=== PATIENT | male | born 1950 | race Caucasian/White ===

== ENCOUNTER 2020-03-21 13:22 | Outpatient (CLI) | payer MEDICARE, SELFPAY ==
--- NOTE | ~2020-03-21 | CT_ITS ---
EXAMINATION: CT abdomen pelvis wo/w con DATE: 03/21/2020 14:37 INDICATION: Hematuria. TECHNIQUE: Computed tomography (CT) of the abdomen and pelvis was performed without and with intraven ous contrast using a total of 130 mL Omnipaque-350 intravenous contrast with a double-bolus technique for simultaneous opacification of the renal parenchyma and renal collecting system. Automated exposu re control and iterative reconstruction technique were employed. The dose-length product was 1221.13 mGy-cm. COMPARISON: CT abdomen and pelvis 11/19/2018 FINDINGS: The visualized portions of the lung bases demonstrate mild atelectasis. No pleural effusion. The hear t size is normal. No pericardial effusion. There are cysts in the liver measuring up to 3.0 cm. The g allbladder is normal. There are low-attenuation masses in the spleen measuring up to 5 mm, likely cys ts or granulomatous disease. The pancreas and adrenal glands are normal. There is a 5 mm cyst in righ t kidney. There is a 4 mm stone in left kidney. The ureters are well opacified and are normal. The bl adder is not well distended. There is a left inguinal hernia containing fat. Prominent fat in right i nguinal canal may be a hernia. There is diverticulosis of the colon without evidence of diverticuliti s. There are no dilated loops of bowel. The appendix is not visualized. There is a small sliding hiat al hernia. There are no pathologically enlarged lymph nodes. Is a small umbilical hernia containing f at. There is a left-sided spigelian hernia containing fat. There is no free intraperitoneal fluid. Th ere is mild subcutaneous scarring in anterior abdominal wall. There is mild lumbar spondylosis. IMPRESSION: 1. 4 mm nonobstructing left kidney stone. Reviewed, dictated and finalized at location A.
[2020-03-21 14:15] LABS: Estimated Glomerular Filt Rate > 60
== END 2020-03-21 13:23 | disposition home or self-care (01) ==
PROVIDERS: PCP Family Medicine; Visit Provider Internal Medicine Medical Oncology
DX: N20.0 Calculus of kidney (principal)
CPT/HCPCS: 36415; 74178; Q9967

== ENCOUNTER 2020-11-28 20:10 | Emergency (ER) | payer MEDICARE, SELFPAY ==
--- NOTE | ~2020-11-28 | CT_ITS ---
EXAMINATION: CT abdomen pelvis w con DATE: 11/28/2020 22:25 INDICATION: Left lower quadrant abdominal pain. TECHNIQUE: Computed tomography (CT) of the abdomen and pelvis was performed with 100 mL Omnipaque 350 intravenous contrast. Automated exposure control and iterative reconstruction technique were employe d. The dose-length product was 461.55 mGy-cm. COMPARISON: CT abdomen and pelvis 03/21/2020, 12/23/11 FINDINGS: The visualized portions of the lung bases demonstrate mild atelectasis. No pleural effusion . The heart size is normal. No pericardial effusion. There is a small sliding hiatal hernia. There ar e cysts in the liver measuring up to 2.8 cm. The gallbladder and spleen are normal. There is an 8 mm hyperenhancing mass in the body of the pancreas without change from 12/23/11, likely a splenule. The a drenal glands are normal. There are cysts in right kidney measuring up to 5 mm. There is mild left hy dronephrosis and hydroureter. There is a 4 mm stone in distal left ureter. There are no dilated loops of bowel. The appendix is not visualized. There is a left inguinal hernia containing fat. There are no pathologically enlarged lymph nodes. There is no free intraperitoneal fluid. There is mild thoraco lumbar spondylosis. IMPRESSION: 1. 4 mm stone in distal left ureter with mild left hydronephrosis and hydroureter. Reviewed, dictated and finalized at location A. OGAME DESIGNER IMPRESSION: 1. 4 mm stone in distal left ureter with mild left hydronephrosis and hydroure ter.
[2020-11-28 20:10] VITALS: BP 146/62; PULSE 68; RESP 15; TEMP 36.6; O2SAT 97
--- NOTE | 2020-11-28 20:13 | ECG_ITS ---
Measurements Intervals Victor Rate: 67 P: 73 VA: 148 QRS: -8 QRSD: 90 T: 48 QT: 389 QTc: 413 Interpretive Statements SINUS RHYTHM NORMAL ECG Electronically Signed On 11-29-2020 6:45:58 PASSENGER FLAGMAN by Ray Pearl D.O.
[2020-11-28 20:45] LABS: Basophils Percent Auto 0.2 % (0.2-1.2); Eosinophils Absolute Auto 0.1 K/mm3 (0-0.3); Eosinophils Percent Auto 0.8 % (0-4.4); Hematocrit 44.6 % (42.0-52.0); Hemoglobin 15.4 g/dL (14.0-18.0); Immature Granulocyte Absolute 0.06 K/mm3 (0.00-0.031); Immature Granulocyte Percent A 0.5 % (0-0.5); Lymphocytes Absolute Auto 3.19 K/mm3 (0.9-3.2); Lymphocytes Percent Auto 26.1 % (18.3-44.2); Mean Corpuscular HGB Conc 34.5 g/dl (32-36); Mean Corpuscular Hemoglobin 34.5 pg (26-34); Mean Corpuscular Volume 99.8 fl (80-100); Mean Platelet Volume 10.2 fl (7.4-10.4); Monocytes Absolute Auto 1.3 K/mm3 (0.1-0.6); Monocytes Percent Auto 10.3 % (2.6-8.5); Neutrophils Absolute Auto 7.6 K/mm3 (1.3-6.7); Neutrophils Percent Auto 62.1 % (45.5-73.1); Platelet Count Result 169 k/mm3 (150-375); Red Blood Count 4.47 M/mm3 (4.6-6.20); Red Cell Distribution Width 12.8 % (11.5-14.5); White Blood Count 12.2 K/mm3 (4.5-10.0)
[2020-11-28 20:58] LABS: Alanine Aminotransferase 20 U/L (4-50); Albumin Level 4.3 g/dL (3.5-5.1); Alkaline Phosphatase 69 U/L (38-126); Anion Gap 4 mmol/L (8-16); Aspartate Amino Transferase 28 U/L (17-59); Bilirubin,Total 0.6 mg/dL (0.2-1.3); Blood Urea Nitrogen 31 mg/dL (9-20); Calcium 9.7 mg/dL (8.4-10.2); Carbon Dioxide 36 mmol/L (22-30); Chloride 100 mmol/L (98-107); Estimated CRCL calculation 50 ml/min; Estimated Glomerular Filt Rate > 60; Glucose 129 mg/dL (75-110); Potassium 3.1 mmol/L (3.4-5.0); Sodium 140 mmol/L (137-145)
[2020-11-28 21:01] VITALS: BP 122/66; PULSE 71; RESP 11; O2SAT 92
--- NOTE | 2020-11-28 21:51 | ED.SYNCOPE ---
HPI - Syncope General Chief Complaint: Syncope Stated Complaint: weakness Time Seen by Provider: 11/28/20 20:18 Source: patient Mode of arrival: ambulatory Limitations: no limitations History of Present Illness HPI narrative: A 70-year-old male comes into the emergency department today with complaints of left lower quadrant pain radiating down into his groin. Patient denies that it goes all the way to his testicles. He states that this sort of feels like when he had a kidney stone in the past. He states that it is very strong ache with episodes where he feels very sharp. He notes that he even passed out earlier from the pain. He denies hitting his head or any head injuries. Patient has not taken any medications for this. Related Data Home Medications Medication Instructions Recorded Confirmed cholecalciferol (vitamin D3) 2,000 unit PO DAILY 08/11/19 11/08/20 [Vitamin D3] fuqdrcun-tbi-RA-lycopen-lutein 1 tablet PO DAILY 08/11/19 11/08/20 [Centrum Silver Men] prednisone 5 mg PO BID 08/11/19 11/08/20 leuprolide (3 month) 22.5 mg (3 22.5 mg SUB-Q [id number] 08/19/19 11/08/20 month) subcutaneous syringe loratadine 10 mg tablet 10 mg PO DAILY 08/19/19 11/08/20 abiraterone 500 mg tablet 1,000 mg PO DAILY 08/24/19 11/08/20 lactobacillus combination no.9 4 4,000 mmu cells PO DAILY 07/05/20 11/08/20 billion cell capsule Allergies Allergy/AdvReac Type Severity Reaction Status Date / Time No Known Allergies Allergy Verified 11/08/20 13:37 Review of Systems Review of Systems: Narrative: CONSTITUTIONAL: Denies fever, chills, or sweats. EYES: Denies visual changes, redness, or discharge. ENT: Denies rhinorrhea, congestion, sore throat, or otalgia. CARDIOVASCULAR: Denies chest pain, palpitations, or edema. RESPIRATORY: Denies cough or dyspnea. GASTROINTESTINAL: Denies abdominal pain, nausea, vomiting, or diarrhea. GENITOURINARY: Denies dysuria or hematuria. Endorses left flank and groin pain SKIN: Denies rash or itching. MUSCULOSKELETAL: Denies back pain, joint pain, or myalgia. NEUROLOGIC: Denies headache, numbness, dizziness, or weakness. PSYCHIATRIC: Denies anxiety or depression. [facility] Past Medical History Medical History Environmental allergies Essential (primary) hypertension GERD (gastroesophageal reflux disease) History of colon polyps Hyperlipidemia Prediabetes Prostate cancer prostatectomy 2011 Surgical History Surgical History History of appendectomy 1950s History of radical prostatectomy 2012 History of vasectomy Family History Family History Other Diabetes mellitus Family history of coronary artery disease Hypertension Malignant neoplasm of prostate Social History Social History Smoking status: Never smoker Second hand tobacco smoke exposure: No Alcohol intake: never Substance use: never Substance use type: does not use Gender identity (if verbalized by the patient): Male Exam Narrative: Exam Narrative: GENERAL: Well-appearing, well-nourished, and in no acute distress. HEAD: Normocephalic, atraumatic. EYES: PERRLA and EOMI. ENT: Nares clear, no rhinorrhea or epistaxis. Mucous membranes moist. NECK: Supple. No adenopathy or masses. No carotid bruits or JVD CHEST: Clear to auscultation. No respiratory distress. No wheezes rales or rhonchi HEART: Regular rate and rhythm. No murmur heard. Normal peripheral pulses. ABDOMEN: Soft, nontender, nondistended, normal active bowel sounds. Tenderness to palpation left lower quadrant EXTREMITIES: Normal range of motion. No edema. SKIN: Warm, dry, no rash. NEURO: No focal deficits. Alert and oriented x3. PSYCH: Normal mood and affect. Course Reevaluation(s) Reevaluation #1: Patient reevaluated and provided care
[2020-11-28 22:01] VITALS: BP 127/54; PULSE 77; RESP 14; O2SAT 91
[2020-11-28] MEDS: LACTATED RINGERS 1,000 ML 999 ML IV CONT (22:14)
[2020-11-28] MEDS: MORPHINE SULFATE (*CRX) 4 MG/ML INJ IV PUSH (22:15)
[2020-11-28 23:02] VITALS: BP 120/101; PULSE 91; RESP 21
[2020-11-28] MEDS: KETOROLAC 15 MG/ML VIAL (*BKC) IV PUSH (23:29)
[2020-11-28 23:34] LABS: Add Urine Microscopic? YES; Appearance Urine Clear (Clear); Bilirubin Urine Negative (Negative); Blood Urine 2+ (Negative); Color Urine Straw (Yellow); Glucose Urine UA Negative (Negative); Ketones Urine Negative (Negative); Leukocyte Esterase Ur Negative LEU/UL (Negative); Mucus Urine Rare /lpf; Nitrate Urine Negative (Negative); Protein Urine Negative (Negative); RBC Urine 21-50 /hpf (0-2); Specific Grav Ur 1.028 (1.001-1.035); Urobilinogen Urine Negative mg/dL (<2.0); WBC Urine 0-3 /hpf
== END 2020-11-28 23:50 | disposition home or self-care (01) ==
PROVIDERS: Emergency Medicine; Emergency Provider Emergency Medicine; PCP Family Medicine
DX: N20.1 Calculus of ureter (principal); I10 Essential (primary) hypertension; K21.9 Gastro-esophageal reflux disease without esophagitis; E78.5 Hyperlipidemia, unspecified
CPT/HCPCS: 36415; 74177; 80053; 81001; 85025; 93005; 96361; 96374; 96375; 99284; J1885; J2270; J7120; Q9967

== ENCOUNTER 2020-12-05 11:24 | Outpatient (CLI) | payer MEDICARE, SELFPAY ==
--- NOTE | ~2020-12-05 | XR_ITS ---
EXAMINATION: XR abdomen/kub 1V EXAM DATE: 12/05/2020 11:44 INDICATION: Left ureteral stone follow-up. TECHNIQUE: Frontal projection(s) of the abdomen for interpretation. Correlation is made to CT 11/28/19. FINDINGS: The distal left ureteral stone seen on CT has likely migrated to the UVJ, calcification has been indicated on the study. This measures about 5 mm. Moderate amount of ascending and transverse c olonic stool and gas. No small bowel obstruction. Moderate bony degenerative changes. IMPRESSION: 1. Left UVJ 5 mm stone, indicated. Reviewed, dictated and finalized at location A. IFYING PLANT OPERATOR
== END 2020-12-05 11:25 | disposition home or self-care (01) ==
LOC: ANHIMG 11:31
PROVIDERS: PCP Family Medicine; Visit Provider Urology
DX: N20.1 Calculus of ureter (principal)
CPT/HCPCS: 74018

== ENCOUNTER 2020-12-07 00:52 | Day surgery (SDC) | payer MEDICARE, SELFPAY ==
[2020-12-07] VITALS (7 sets, daily range): BP systolic 112–142; BP diastolic 43–68; PULSE 63–71; RESP 12–14; TEMP 36.3–37; O2SAT 95–100; BMI 25.4
--- NOTE | ~2020-12-07 | XR_ITS ---
EXAMINATION: XR abdomen/kub 1V EXAM DATE: 12/07/2020 13:16 INDICATION: Lithotripsy. TECHNIQUE: Frontal projection(s) of the abdomen for interpretation. Comparison is made to prior exami nation from 12/05/2020. FINDINGS: Left pelvic calcification suspected to be UVJ stone measuring about 5 mm reidentified, ind icated. Mild to moderate bony degenerative changes. Nonobstructive bowel gas pattern. IMPRESSION: Left pelvic calcification likely UVJ 5 mm stone identified. Reviewed, dictated and finalized at location A. L BUILDER
--- NOTE | ~2020-12-07 | XR_ITS ---
EXAMINATION: XR retrograde pyelo w/stent LT EXAM DATE: 12/07/2020 15:37 INDICATION: Left-sided retrograde pyelogram for obstructive nephropathy. TECHNIQUE: Fluoroscopy used during XR retrograde pyelo w/stent LT performed by Dr. Vj scott MD. The DAP for this procedure was 228 radcm2. FINDINGS: Left ureter was cannulated and injected. Mild left hydronephrosis. A double-J ureteral tia nt was placed. Correlate with procedure note. IMPRESSION: Fluoroscopy used during XR retrograde pyelo w/stent LT. Reviewed, dictated and finalized at location A. KEEPER
--- NOTE | 2020-12-07 13:47 | WPDHPUPDATE1 ---
History and Physical Update Update Date/Time: 12/07/20 13:47 History and Physical has been reviewed, including an updated exam of the patient. There are NO changes in the patient's condition. Risks, benefits, and alternatives have been discussed and questions answered. Patient agrees to proceed with procedure. Proceed with cystoscopy, left retrograde pyelogram, left ureteroscopy with stone extraction, possible holmium laser, stent placement
[2020-12-07] MEDS: LACTATED RINGERS 1,000 ML 30 ML IV CONT (13:56)
--- NOTE | 2020-12-07 14:39 | WPDANESEPPF ---
Anes - Initial Pre Proc Eval Procedure: Operation Date: 12/07/20 15:30 Proposed Procedures p Cystoscopy, Left Ureteroscopy, Left Retrograde Pyelogram, Left Stone Extraction, Possible Left Stent Placement, - Vj Morales MD s Possible Holmium Laser Procedure - Vj Morales MD Date/Time: 12/07/20 14:39 Surgeon: Vj Morales MD Pre Op Diagnosis: Left Ureteral Stones N20.1 Patient Data Age: 70 Gender: M Height: 5 ft 7.5 in Weight: 73.9 kg Last Vital Signs Temp 37.0 C 12/07/20 13:57 Pulse 69 12/07/20 13:57 BP 135/62 12/07/20 13:57 Pulse Ox 97 12/07/20 13:57 Allergies Allergy/AdvReac Type Severity Reaction Status Date / Time No Known Allergies Allergy Verified 12/07/20 09:42 Home Medications Medication Instructions Recorded Confirmed Type cholecalciferol (vitamin D3) 2,000 unit PO DAILY 08/11/19 12/07/20 History [Vitamin D3] rzjtlltl-ung-UG-lycopen-lutein 1 tablet PO DAILY 08/11/19 12/07/20 History [Centrum Silver Men] prednisone 5 mg PO BID 08/11/19 12/07/20 History leuprolide (3 month) 22.5 mg (3 22.5 mg SUB-Q [id number] 08/19/19 12/07/20 History month) subcutaneous syringe loratadine 10 mg tablet 10 mg PO DAILY 08/19/19 12/07/20 History abiraterone 500 mg tablet 1,000 mg PO QAM 08/24/19 12/07/20 History lactobacillus combination no.9 4 4,000 mmu cells PO QAM 07/05/20 12/07/20 History billion cell capsule famotidine 20 mg tablet 20 mg PO BID #180 tablet 11/08/20 12/07/20 Rx hydrocodone-acetaminophen 1 tablet PO Q6H PRN #20 tablet 11/28/20 12/07/20 Rx atorvastatin 40 mg PO QAM 12/07/20 12/07/20 History lisinopril-hydrochlorothiazide 1 tablet PO QAM 12/07/20 12/07/20 History Patient hx anesthesia problems: none Family hx anesthesia problems: none PMFSH Past Medical History Medical History Environmental allergies Essential (primary) hypertension GERD (gastroesophageal reflux disease) History of colon polyps Hyperlipidemia Prediabetes Prostate cancer prostatectomy 2011 Surgical History Surgical History History of appendectomy 1950s History of radical prostatectomy 2012 History of vasectomy Family History Family History Other Diabetes mellitus Family history of coronary artery disease Hypertension Malignant neoplasm of prostate Social History Social History Smoking status: Never smoker Second hand tobacco smoke exposure: No Alcohol intake: former Alcohol use details: SOCIAL IN DISTANCE PAST Substance use: never Substance use type: does not use Living arrangements: with family Additional living arrangements comments: & SON Gender identity (if verbalized by the patient): Male Spiritual care concerns: No Anes - Eval Final PreProcedure Day of Procedure 12/07/20 14:39 Patient weight: normal Heart: regular rate and rhythm Lungs: clear to auscultation Airway: Mallampati scale class II Neurological: alert and oriented Last oral intake: >/= 8 hours ASA classification: III Emergent: no Anesthetic plan: proceed Anesthesia type and monitoring: general LMA and standard monitoring Informed Consent: The patient's anesthetic plan and its attendant risks and benefits were discussed with the patient/family/POA. Questions were solicited and answers provided to the satisfaction of the patient/family/POA.
--- NOTE | 2020-12-07 15:33 | PM.PROC ---
Procedure Note - Detailed Date of procedure: 12/07/20 Pre-op diagnosis: Left Ureteral Stones N20.1 Post-op diagnosis: same Procedure performed: Cystoscopy, left retrograde pyelogram, left ureteroscopy with stone extraction, left ureteral stent placement, dilation of urethra with with male sounds to 24 Monegasque. Description of procedure: Patient is taken the operative suite correctly identified. Once anesthesia was obtained he was placed in dorsal lithotomy position and prepped and draped usual sterile fashion. Twenty-two Monegasque scope would not fit in the meatus. We thus dilated using male sounds up to 24 Monegasque. Twenty-two Monegasque scope was then inserted. There is no strictures noted. Prostate is absent. The bladder is inspected there is no tumors noted. Left ureteral orifice was cannulated with a guidewire. 8/10 dilator was used to dilate the orifice. Rigid ureteral scope was then inserted the stone was visualized. Using an escape basket we were able to retrieve the stone 1 piece and sent for analysis. Reinspection revealed no residual stones. Pyelogram sent performed to confirm placement of the stent. 4.8 Monegasque contour stent was then placed with the proximal end coiled in the renal pelvis and the distal in the bladder. Bladder was drained. 2% viscous lidocaine was inserted urethra patient is taken recovery room stable condition. He will be discharged home and follow up in about a week's time for stent removal. Anesthesia: GLMA Surgeon: Vj Morales MD Drains: Yes Packing: No Pathology: yes Complications: No immediate complications Condition: stable Disposition: PACU
[2020-12-07] MEDS: LIDOCAINE HCL 2% GEL UROJET 10 ML PKG MUCOUS MEM (15:35)
== END 2020-12-07 17:30 | disposition home or self-care (01) ==
PROVIDERS: PCP Family Medicine; Visit Provider Urology
PROC: (CPT 52352; principal; 2020-12-07 15:30)
DX: N13.2 Hydronephrosis with renal and ureteral calculous obstruction (principal); E78.5 Hyperlipidemia, unspecified; R73.03 Prediabetes; I10 Essential (primary) hypertension; K21.9 Gastro-esophageal reflux disease without esophagitis; Z85.46 Personal history of malignant neoplasm of prostate
CPT/HCPCS: 52332; 52352; 74018; 74420; 82365; 88300; A9270; C1769; C2617; J1100; J1170; J2250; J2405; J2704; J7120; Q9966

== ENCOUNTER 2021-04-18 02:27 | Day surgery (SDC) | payer MEDICARE, SELFPAY ==
[2021-04-16 15:43] VITALS: BMI 25.2
[2021-04-18] VITALS (9 sets, daily range): BP systolic 118–151; BP diastolic 55–74; PULSE 59–69; RESP 16–20; TEMP 36.2; O2SAT 94–99; BMI 25.8
--- NOTE | 2021-04-18 06:01 | WPDHPUPDATE1 ---
History and Physical Update Update Date/Time: 04/18/21 06:01 History and Physical has been reviewed, including an updated exam of the patient. There are NO changes in the patient's condition. Risks, benefits, and alternatives have been discussed and questions answered. Patient agrees to proceed with procedure.
[2021-04-18] MEDS: LACTATED RINGERS 1,000 ML 30 ML IV CONT (09:40)
--- NOTE | 2021-04-18 09:44 | WPDANESEPPF ---
Anes - Initial Pre Proc Eval Procedure: Operation Date: 04/18/21 11:00 Proposed Procedures p Cystoscopy, Urethral Dilatation - Alfie Hardy MD Date/Time: 04/18/21 09:44 Surgeon: Alfie Hardy MD Pre Op Diagnosis: bulbous urethral stricture Patient Data Age: 71 Gender: M Height: 1.7 m Weight: 74.8 kg Last Vital Signs Temp 36.2 C L 04/18/21 09:38 Pulse 64 04/18/21 09:38 Resp 18 04/18/21 09:38 BP 126/55 L 04/18/21 09:38 Pulse Ox 97 04/18/21 09:38 Allergies Allergy/AdvReac Type Severity Reaction Status Date / Time No Known Allergies Allergy Verified 04/18/21 09:26 Home Medications Medication Instructions Recorded Confirmed Type Centrum Silver Men 1 tablet PO DAILY 08/11/19 04/18/21 History cholecalciferol (vitamin D3) 2,000 unit PO DAILY 08/11/19 04/18/21 History [Vitamin D3] prednisone 5 mg PO BID 08/11/19 04/18/21 History leuprolide (3 month) 22.5 mg (3 22.5 mg SUB-Q [id number] 08/19/19 04/18/21 History month) subcutaneous syringe loratadine 10 mg tablet 10 mg PO DAILY 08/19/19 04/18/21 History abiraterone 500 mg tablet 1,000 mg PO QAM 08/24/19 04/18/21 History lactobacillus combination no.9 4 4,000 mmu cells PO QAM 07/05/20 04/18/21 History billion cell capsule famotidine 20 mg tablet 20 mg PO BID #180 tablet 11/08/20 04/18/21 Rx atorvastatin 40 mg PO HS 04/16/21 04/18/21 History ibuprofen 400 mg PO Q6H PRN 04/16/21 04/18/21 History lisinopril-hydrochlorothiazide 1 tablet PO QAM 04/16/21 04/18/21 History Patient hx anesthesia problems: none Family hx anesthesia problems: none PMFSH Past Medical History Medical History Environmental allergies Essential (primary) hypertension GERD (gastroesophageal reflux disease) History of colon polyps Prediabetes Prostate cancer prostatectomy 2011 Surgical History Surgical History History of appendectomy 1950s History of radical prostatectomy 2011 History of vasectomy Hx of cystoscopy 12/23 - left ureteroscopy for stone extraction Family History Family History Other Diabetes mellitus Family history of coronary artery disease Hypertension Malignant neoplasm of prostate Social History Social History Smoking status: Never smoker Second hand tobacco smoke exposure: No Alcohol intake: former Alcohol use details: SOCIAL IN DISTANCE PAST Substance use: never Substance use type: does not use Living arrangements: with family Additional living arrangements comments: , SON Gender identity (if verbalized by the patient): Male Spiritual care concerns: No Anes - Eval Final PreProcedure Day of Procedure 04/18/21 09:44 Patient weight: overweight Heart: regular rate and rhythm Lungs: clear to auscultation Airway: Mallampati scale class II Neurological: alert and oriented Last oral intake: >/= 8 hours ASA classification: III Emergent: no Anesthetic plan: proceed Anesthesia type and monitoring: general LMA and standard monitoring Informed Consent: The patient's anesthetic plan and its attendant risks and benefits were discussed with the patient/family/POA. Questions were solicited and answers provided to the satisfaction of the patient/family/POA.
[2021-04-18] MEDS: ceFAZolin 2 GM/D5W 50 ML 2 GM/50 ML BAG IVPB (11:04)
[2021-04-18] MEDS: LIDOCAINE HCL 2% GEL UROJET 10 ML PKG MUCOUS MEM (11:13)
--- NOTE | 2021-04-18 11:37 | W.PM.PROC2 ---
Procedure Note - Detailed Date of Procedure 04/18/21 Pre-op Diagnosis Bulbous urethral stricture/bladder neck contracture Post-op Diagnosis same Procedure Performed Cystoscopy, urethral dilatation Surgeon Alfie Hrady MD Wrecking Crane Engine Operator None Anesthesia general Description of Procedure Patient brought to the office where he has prepped draped in routine sterile fashion while in a dorsal lithotomy position. Cystoscopy is undertaken with a 19 F rigid cystoscope. He has stricture in the proximal urethra, more consistent with a bladder neck contracture then bulbous urethral stricture. Regardless of its exact location and it is stents and somewhat lengthy ( approximately 1-1.5 cm). I dilated the strictured area from 12 F to 24 F over a 0.035 in guidewire. Determination I placed an 18 F urethral catheter which I plan to leave for 5 days. Implants None Estimated Blood Loss 0 Urine Output 100 Drains Yes ( 18F Izquierdo catheter) Packing No Pathology none sent Complications No immediate complications Condition stable Disposition PACU
== END 2021-04-18 13:31 | disposition home or self-care (01) ==
PROVIDERS: PCP Family Medicine; Visit Provider Urology
PROC: 0T7D8ZZ Dilation of Urethra, Via Natural or Artificial Opening Endoscopic (ICD-10-PCS; CPT 52281; principal; 2021-04-18 11:00)
DX: N32.0 Bladder-neck obstruction (principal); N35.912 Unspecified bulbous urethral stricture, male; I10 Essential (primary) hypertension; K21.9 Gastro-esophageal reflux disease without esophagitis; R73.03 Prediabetes; Z85.46 Personal history of malignant neoplasm of prostate
CPT/HCPCS: 52281; A9270; C1726; C1769; J0690; J1100; J2405; J2704; J3010; J7120

== ENCOUNTER 2021-09-29 11:16 | Emergency (ER) | payer MEDICARE, SELFPAY ==
--- NOTE | ~2021-09-29 | CT_ITS ---
EXAMINATION: CT abdomen pelvis wo con DATE: 09/29/2021 13:00 INDICATION: Urinary obstruction TECHNIQUE: Computed tomography (CT) of the abdomen and pelvis was performed without intravenous contr ast. Automated exposure control and iterative reconstruction technique were employed. Exam dose: 303 .67 mGy-cm total exam DLP. COMPARISON: 11/28/[address] abdomen pelvis FINDINGS: There are patchy infiltrates in the middle lobe and both lower lobes. Normal heart size. No pericardial or pleural effusion. Small sliding hiatal hernia. Occasional hepatic cysts are again noted, measuring up to 2.8 cm. The gallbladder is unremarkable. N o bile duct or pancreatic duct dilatation. No pancreatic mass lesion or calcification. Normal splenic size. Normal morphology of the adrenal glands. No urinary tract calculus or hydroureteronephrosis. No renal space occupying mass lesion is evident o n this limited noncontrast examination. There is atherosclerotic calcification of the abdominal aorta and at the origins of the renal arterie s. No abdominal aortic aneurysm. No intraperitoneal or retroperitoneal or pelvic mass lesion or adeno stacy or ascites. The urinary bladder is unremarkable. Bilateral fat-containing inguinal hernias. There is mild diverticulosis of the left colon; no CT evidence of diverticulitis. No bowel obstructio n, bowel wall thickening, pneumatosis or intraperitoneal free air is detected. Small fat-containing umbilical hernia. IMPRESSION: No ureteral calculus or hydroureteronephrosis Small sliding hiatal hernia Mild left colonic diverticulosis; no CT evidence of diverticulitis Bilateral fat-containing inguinal hernias and fat-containing umbilical hernia Reviewed, dictated and finalized at [facility] Reviewed, dictated and finalized at [facility]. TORATE OFFICER
[2021-09-29 11:20] VITALS: BP 174/60; PULSE 81; RESP 18; TEMP 36.8; O2SAT 95
--- NOTE | 2021-09-29 12:25 | ED.GENADULT ---
HPI - General Adult General Chief complaint: Urogenital-Male Stated complaint: trouble urinating Time Seen by Provider: 09/29/21 11:20 Source: patient Mode of arrival: ambulatory Limitations: no limitations History of Present Illness HPI narrative: Patient presents for evaluation of urinary symptoms. He indicates he has had decreased urinary output since last night. He reports dribbling last night and today. At the time of symptom onset he had some low back pain but that has since resolved. He cannot provide me with the duration of time for which he experienced low back pain. He denies any fever, chills, nausea, vomiting, abdominal pain, hematuria, dysuria, frequency or other urinary symptoms. He has a history of kidney stones and prostate cancer, status post prostatectomy. He has undergone radiation therapy in the past and has required ureter stent placements. He also has a history of urethral stricture and bladder neck contracture. He came in for further evaluation of decreased urinary output. He has seen urologist, Dr Hardy in past and oncologist is Dr Casiano. Related Data Home Medications Medication Instructions Recorded Confirmed Centrum Silver Men 1 tablet PO DAILY 08/11/19 07/08/21 cholecalciferol (vitamin D3) 2,000 unit PO DAILY 08/11/19 07/08/21 [Vitamin D3] prednisone 5 mg PO BID 08/11/19 06/26/21 leuprolide (3 month) 22.5 mg (3 22.5 mg SUB-Q [id number] 08/19/19 07/08/21 month) subcutaneous syringe loratadine 10 mg tablet 10 mg PO DAILY 08/19/19 07/08/21 abiraterone 500 mg tablet 1,000 mg PO QAM 08/24/19 07/08/21 lactobacillus combination no.9 4 4,000 mmu cells PO QAM 07/05/20 07/08/21 billion cell capsule ibuprofen 400 mg PO Q6H PRN 04/16/21 07/08/21 lisinopril-hydrochlorothiazide 1 tablet PO QAM 04/16/21 07/08/21 atorvastatin 40 mg tablet 40 mg PO QHS tablet 07/08/21 07/08/21 Allergies Allergy/AdvReac Type Severity Reaction Status Date / Time No Known Allergies Allergy Verified 07/08/21 13:27 Review of Systems Review of Systems: CONSTITUTIONAL: Denies fever, chills, or sweats. EYES: Denies visual changes, redness, or discharge. ENT: Denies rhinorrhea, congestion, sore throat, or otalgia. CARDIOVASCULAR: Denies chest pain, palpitations, or edema. RESPIRATORY: Denies cough or dyspnea. GASTROINTESTINAL: Denies abdominal pain, nausea, vomiting, or diarrhea. GENITOURINARY: Reports decreased urinary output with associated dribbling. SKIN: Denies rash or itching. MUSCULOSKELETAL: Denies back pain, joint pain, or myalgia. NEUROLOGIC: Denies headache, numbness, dizziness, or weakness. PSYCHIATRIC: Denies anxiety or depression. [facility] Past Medical History Medical History Environmental allergies Essential (primary) hypertension GERD (gastroesophageal reflux disease) History of colon polyps Prediabetes Prostate cancer prostatectomy 2011 Surgical History Surgical History History of appendectomy 1950s History of radical prostatectomy 2011 History of vasectomy Hx of cystoscopy 12/23 - left ureteroscopy for stone extraction Family History Family History Other Diabetes mellitus Family history of coronary artery disease Hypertension Malignant neoplasm of prostate Social History Social History Smoking status: Never smoker Second hand tobacco smoke exposure: No Alcohol intake: former Alcohol use details: SOCIAL IN DISTANCE PAST Substance use: never Substance use type: does not use Additional living arrangements comments: , SON Gender identity (if verbalized by the patient): Male Spiritual care concerns: No Exam Narrative: GENERAL: Well-appearing, well-nourished, and in no acute distress. HEAD: Normocephalic, atraumatic.
[2021-09-29 12:49] LABS: Basophils Percent Auto 0.3 % (0.2-1.2); Eosinophils Absolute Auto 0.1 K/mm3 (0-0.3); Eosinophils Percent Auto 0.5 % (0-4.4); Hematocrit 43.3 % (42.0-52.0); Hemoglobin 14.9 g/dL (14.0-18.0); Immature Granulocyte Absolute 0.11 K/mm3 (0.00-0.031); Immature Granulocyte Percent A 0.8 % (0-0.5); Lymphocytes Absolute Auto 1.02 K/mm3 (0.9-3.2); Lymphocytes Percent Auto 7.4 % (18.3-44.2); Mean Corpuscular HGB Conc 34.4 g/dl (32-36); Mean Corpuscular Volume 95.8 fl (80-100); Mean Platelet Volume 9.4 fl (7.4-10.4); Monocytes Absolute Auto 0.8 K/mm3 (0.1-0.6); Neutrophils Absolute Auto 11.7 K/mm3 (1.3-6.7); Platelet Count Result 302 k/mm3 (150-375); Red Blood Count 4.52 M/mm3 (4.6-6.20); Red Cell Distribution Width 12.6 % (11.5-14.5); White Blood Count 13.8 K/mm3 (4.5-10.0)
[2021-09-29 12:51] LABS: Add Urine Microscopic? NO; Appearance Urine Clear (Clear); Bilirubin Urine Negative (Negative); Blood Urine Negative (Negative); Color Urine Yellow (Yellow); Glucose Urine UA Negative (Negative); Ketones Urine Negative (Negative); Leukocyte Esterase Ur Negative LEU/UL (Negative); Nitrate Urine Negative (Negative); Protein Urine Negative (Negative); Urobilinogen Urine Negative mg/dL (<2.0)
[2021-09-29 12:57] LABS: Alanine Aminotransferase 33 U/L (4-50); Albumin Level 4.1 g/dL (3.5-5.1); Alkaline Phosphatase 74 U/L (38-126); Anion Gap 10 mmol/L (8-16); Aspartate Amino Transferase 44 U/L (17-59); Bilirubin,Total 1.2 mg/dL (0.2-1.3); Blood Urea Nitrogen 15 mg/dL (9-20); Calcium 9.6 mg/dL (8.4-10.2); Carbon Dioxide 28 mmol/L (22-30); Chloride 99 mmol/L (98-107); Estimated CRCL calculation 67 ml/min; Estimated Glomerular Filt Rate > 60; Glucose 119 mg/dL (65-110); Potassium 3.1 mmol/L (3.4-5.0); Sodium 137 mmol/L (137-145)
[2021-09-29 13:03] LABS: Specific Grav Ur 1.004 (1.001-1.035)
[2021-09-29] MEDS: POTASSIUM CHLORIDE 20 MEQ PACKET (FOR LIQUID) 40 MEQ PO (14:09)
[2021-09-29 14:53] VITALS: BP 132/76; PULSE 70; RESP 18; O2SAT 99
== END 2021-09-29 14:54 | disposition home or self-care (01) ==
PROVIDERS: Emergency Provider Nurse Practitioner; PCP Family Medicine
DX: R39.89 Other symptoms and signs involving the genitourinary system (principal); E87.6 Hypokalemia; I10 Essential (primary) hypertension; Z86.010 Personal history of colon polyps; R73.03 Prediabetes; Z85.46 Personal history of malignant neoplasm of prostate; Z90.79 Acquired absence of other genital organ(s); Z87.442 Personal history of urinary calculi; K57.90 Diverticulosis of intestine, part unspecified, without perforation or abscess without bleeding; K44.9 Diaphragmatic hernia without obstruction or gangrene; K40.20 Bilateral inguinal hernia, without obstruction or gangrene, not specified as recurrent; K42.9 Umbilical hernia without obstruction or gangrene
CPT/HCPCS: 36415; 74176; 80053; 81003; 85025; 99284; A9270

== ENCOUNTER 2021-12-22 20:24 | Observation (INO) | payer MEDICARE, SELFPAY ==
[2021-12-22] VITALS (15 sets, daily range): BP systolic 135–177; BP diastolic 50–58; PULSE 61–77; RESP 12–21; TEMP 36.4–37.1; O2SAT 94–99; BMI 24.5
--- NOTE | ~2021-12-22 | XR_ITS ---
XR chest 2V DATE: 12/22/2021 20:56 INDICATION: Hypertension. Lip swelling. Dysarthria. TECHNIQUE: AP and lateral views COMPARISON: 12/23/2011 two-view chest FINDINGS: Normal heart size. No hilar or mediastinal enlargement. No pulmonary infiltrate or consolid ation, pleural effusion or pulmonary vascular congestion or pneumothorax. Osteopenia. IMPRESSION: No active cardiopulmonary disease Reviewed, dictated and finalized at [facility].
--- NOTE | ~2021-12-22 | MR_ITS ---
EXAMINATION: MR brain/brain stem wo/w con DATE: 12/23/2021 08:19 INDICATION: Transient ischemic episode with dysarthria and difficulty moving the left side of the marcela th. TECHNIQUE: Magnetic resonance imaging (MRI) of the brain and brainstem was performed without and with 15 mL Multihance intravenous contrast. Sequences included sagittal and axial T1-weighted SE, axial d iffusion-weighted FS SE, axial T2*-weighted GRE, axial T2-weighted FLAIR, and axial T2-weighted FSE. Postcontrast axial and coronal T1-weighted SE was obtained. Apparent diffusion coefficient (ADC) maps were created. COMPARISON: Head CT dated 12/22/2021. MRI dated 06/15/2013. FINDINGS: Magnetic field susceptibility artifact along a sulcus of the right frontal lobe consistent with blood products. Surrounding this region extending to the right frontal and temporal lobes there is more ex tensive increased CSF signal on the FLAIR images. The increased CSF signal extends into the suprasell ar cistern and subarachnoid space along a few of the sulci and the left temporal lobe consistent with subarachnoid hemorrhage. There are no areas of restricted diffusion to suggest acute infarction. No abnormal intracranial mass lesion. There are scattered areas of nonspecific increased T2-weighted sig nal intensity in the cerebral white matter, predominantly involving the deep and periventricular whit e matter. There are no intraparenchymal signal abnormalities seen on the other pulse sequences. The v entricles are symmetric and normal in size. There are no abnormal extra-axial fluid collections. Flow voids are seen in the cerebral arteries on the T2-weighted sequences consistent with their expected patency. Mild mucosal thickening in the paranasal sinuses. Visualized orbits and soft tissues are unr emarkable. There is subtle hyperemia along the gyri in the affected right frontal lobe likely seconda ry to the subarachnoid hemorrhage. No other abnormally enhancing brain lesions identified. IMPRESSION: 1. Small subarachnoid hemorrhage in the right frontal lobe. Dr. Rao discussed these findings wit h Dr. Lachelle Haas at 9:15 AM. 2. Typical pattern of mild scattered white matter T2 hyperintensity consistent with chronic small ves magalis ischemic disease. Reviewed, dictated and finalized at [facility]. IMPRESSION: 1. Small subarachnoid hemorrhage in the right frontal lobe. Dr. Maira moss sed these findings with Dr. Lachelle Haas at 9:15 AM. 2. Typical pattern of mild scattered white matter T2 hyperintensity consistent with chronic small vessel ischemic disease.
--- NOTE | ~2021-12-22 | CT_ITS ---
EXAMINATION: CTA BRAIN/CAROTID DATE: 12/23/2021 12:32 INDICATION: Suspected stroke TECHNIQUE: Computed tomographic angiography (CTA) of the head and neck was performed with 100 mL Omni paque-350 intravenous contrast. Multiplanar reconstructions and maximum intensity projection 3D-recon structions of the carotid arteries and of the intracranial arteries were created by the technologist on a separate workstation. Precontrast CT of the head was also obtained. Automated exposure control and iterative reconstruction technique were employed.The dose-length product was 1878.30 mGy-cm. COMPARISON: Brain MR dated 12/23/2021 FINDINGS: Carotid arteries: There is atherosclerotic plaque with 0% stenosis of the right carotid bulb relative to normal distal artery lumen diameter (NASCET criteria). Smaller amount of atherosclerotic plaque with 0% stenosis of the left carotid bulb relative to normal distal artery lumen diameter. Mild right paratracheal lymph adenopathy with largest lymph node measuring 1 cm in maximal short axis diameter. No pathologically e nlarged cervical lymphadenopathy. Cervical soft tissues are unremarkable. Visualized apices of the nannette ngs are clear. Severe cervical spondylosis. Head: Subtle increased attenuation along the base of the sulcus in the right frontal lobe corresponding to the site of susceptibility artifact on prior MRI consistent with small amount of subarachnoid hemorrh age. No acute acute infarction or abnormal extra axial fluid collection. There is mild scattered whit e matter hypoattenuation consistent with chronic small vessel ischemic disease. Ventricles are luci l and symmetric. No mass/mass effect. The orbits, paranasal sinuses and mastoid air cells are normal. No evident abnormally enhancing brain lesions. Intracranial arteries There is no hemodynamically significant stenosis in the vertebral, basilar and internal carotid arter ies. Vertebral arteries are codominant. There are no aneurysms identified. Both A1 and P1 segments a re patent. The right P1 segment is diminutive with additional vascular flow supplied via a patent rig ht posterior communicating artery. Cerebral arterial arborization appears symmetric. No evident activ e extravasation at the site of the subarachnoid hemorrhage. IMPRESSION: 1. 0% stenosis of the left and right carotid bulbs relative to normal distal artery lumen diameter (N ASCET criteria). 2. Small focus of subarachnoid hemorrhage in the right frontal lobe. No evident active extravasation. Reviewed, dictated and finalized at location [facility]. IMPRESSION: 1. 0% stenosis of the left and right carotid bulbs relative to normal distal ar jazzmine lumen diameter (NASCET criteria). 2. Small focus of subarachnoid hemorrhage in the right frontal lobe. No evident active extravasation.
--- NOTE | ~2021-12-22 | CT_ITS ---
EXAMINATION: CT brain wo con DATE: 12/22/2021 20:54 INDICATION: Dysarthria TECHNIQUE: Computed tomography (CT) of the head was performed without intravenous contrast. The mA wa s adjusted according to patient size. Iterative reconstruction technique was employed. Exam dose: 68 1.00 mGy-cm total exam DLP. COMPARISON: 04/18/2018 CT brain FINDINGS: No intracranial mass lesion or hemorrhage or cerebrovascular accident, midline shift or mas s effect effect. There is cerebral and cerebellar volume loss. There is vertebral artery and bilateral carotid siphon internal carotid artery calcification. There i s nonspecific diminished attenuation of the cerebral white matter, likely due to chronic small vessel ischemic changes. No subdural or epidural hematoma is detected. No orbital mass lesion. Included paranasal sinuses and mastoid air cells are normally aerated. IMPRESSION: Cerebral atherosclerosis and chronic small vessel ischemic changes of the cerebral white matter No acute intracranial finding. CT is not sensitive for detection of hyperacute nonhemorrhagic infarct . Reviewed, dictated and finalized at [facility]. Reviewed, dictated and finalized at [facility]. IMPRESSION: Cerebral atherosclerosis and chronic small vessel ischemic changes of the cerebral white matter No acute intracranial finding. CT is not sensitive for detection of hyperacute nonhemorrhagic infarct.
--- NOTE | 2021-12-22 20:38 | ECG_ITS ---
Measurements Intervals [place] Rate: 65 P: 71 MS: 148 QRS: -3 QRSD: 93 T: 18 QT: 333 QTc: 347 Interpretive Statements SINUS RHYTHM NONSPECIFIC T-WAVE ABNORMALITY ABNORMAL ECG COMPARED TO ECG 11/28/2020 20:16:33 T-WAVE ABNORMALITY NOW PRESENT Electronically Signed On 12-23-2021 9:05:20 CDT by Ja New M.D.
--- NOTE | 2021-12-22 21:08 | ED.NEUROSD ---
HPI - Neuro Symptoms/Deficit General Chief Complaint: Neuro Symptoms/Deficit Stated Complaint: think I had a mini stroke , slurred speech. Time Seen by Provider: 12/22/21 20:32 History of Present Illness HPI Narrative: Patient is a 71-year-old male who presents ER with concerns for possible stroke. Patient had finished his [employer] service and was waiting in line to get some ice cream when he was talking to some friends and suddenly could not form words anymore. This lasted for a couple of minutes. He reports his lips felt heavy. Witnesses deny any facial droop or arm weakness. Patient has not had a stroke before. He is on no blood thinners. Patient feels fine at this time. Related Data Home Medications Medication Instructions Recorded Confirmed Centrum Silver Men 1 tablet PO DAILY 08/11/19 12/09/21 cholecalciferol (vitamin D3) 2,000 unit PO DAILY 08/11/19 12/09/21 [Vitamin D3] prednisone 5 mg PO BID 08/11/19 12/09/21 leuprolide (3 month) 22.5 mg (3 22.5 mg SUB-Q [id number] 08/19/19 12/09/21 month) subcutaneous syringe loratadine 10 mg tablet 10 mg PO DAILY 08/19/19 12/09/21 abiraterone 500 mg tablet 1,000 mg PO QAM 08/24/19 12/09/21 lactobacillus combination no.9 4 4,000 mmu cells PO QAM 07/05/20 12/09/21 billion cell capsule ibuprofen 400 mg PO Q6H PRN 04/16/21 12/09/21 ascorbic acid (vitamin C) 1,000 mg 1 g PO DAILY 10/08/21 12/09/21 tablet zinc 50 mg tablet 50 mg PO DAILY 10/08/21 12/09/21 mirabegron 25 mg tablet,extended 25 mg PO DAILY 11/27/21 12/09/21 release 24 hr Allergies Allergy/AdvReac Type Severity Reaction Status Date / Time No Known Allergies Allergy Verified 12/09/21 08:17 Review of Systems Review of Systems: All systems reviewed & are unremarkable except as noted in HPI and below Constitutional: Constitutional: Denies chills, Denies fever(s) and Denies weakness ENT: Denies nasal congestion and Denies sore throat Cardiovascular: Cardiovascular: Denies chest pain, Denies rapid heart rate and Denies radiating jaw, neck or arm pain Respiratory: Respiratory: Denies cough, Denies dyspnea and Denies wheezing Gastrointestinal: Gastrointestinal: Denies abdominal pain, Denies diarrhea, Denies nausea and Denies vomiting Neurologic: Denies syncope, Denies headache(s), Denies focal weakness and Denies numbness Comments: dysarthria PMFSH Past Medical History Medical History Environmental allergies Essential (primary) hypertension GERD (gastroesophageal reflux disease) History of colon polyps History of COVID-19 (~09/2021) Prediabetes Prostate cancer prostatectomy 2011 Surgical History Surgical History History of appendectomy 1950s History of radical prostatectomy 2011 History of vasectomy Hx of cystoscopy 12/23 - left ureteroscopy for stone extraction Family History Family History Other Diabetes mellitus Family history of coronary artery disease Hypertension Malignant neoplasm of prostate Social History Social History Second hand tobacco smoke exposure: No Alcohol intake: former Alcohol use details: SOCIAL IN DISTANCE PAST Substance use: never Substance use type: does not use Additional living arrangements comments: , SON Gender identity (if verbalized by the patient): Male Spiritual care concerns: No Exam Narrative: GENERAL: Well-appearing, well-nourished, and in no acute distress. HEAD: Normocephalic, atraumatic. EYES: PERRL and EOMI. ENT: Mucous membranes moist. CHEST: Clear to auscultation. No respiratory distress. HEART: Regular rate and rhythm. Normal peripheral pulses. ABDOMEN: Soft, nontender, nondistended. EXTREMITIES: Normal range of motion. No edema. SKIN: Warm, dry, no rash. NEURO: No foca
[2021-12-22 21:19] LABS: Basophils Percent Auto 0.3 % (0.2-1.2); Eosinophils Absolute Auto 0.1 K/mm3 (0-0.3); Eosinophils Percent Auto 1.2 % (0-4.4); Hematocrit 39.2 % (42.0-52.0); Hemoglobin 13.5 g/dL (14.0-18.0); Immature Granulocyte Absolute 0.02 K/mm3 (0.00-0.031); Immature Granulocyte Percent A 0.3 % (0-0.5); Lymphocytes Absolute Auto 1.58 K/mm3 (0.9-3.2); Lymphocytes Percent Auto 21.1 % (18.3-44.2); Mean Corpuscular HGB Conc 34.4 g/dl (32-36); Mean Corpuscular Hemoglobin 33.6 pg (26-34); Mean Corpuscular Volume 97.5 fl (80-100); Mean Platelet Volume 9.9 fl (7.4-10.4); Monocytes Absolute Auto 0.8 K/mm3 (0.1-0.6); Monocytes Percent Auto 10.9 % (2.6-8.5); Neutrophils Percent Auto 66.2 % (45.5-73.1); Platelet Count Result 164 k/mm3 (150-375); Red Blood Count 4.02 M/mm3 (4.6-6.20); Red Cell Distribution Width 12.4 % (11.5-14.5); White Blood Count 7.5 K/mm3 (4.5-10.0)
[2021-12-22 21:29] LABS: Prothrombin Time 12.5 Seconds (11.1-14.7)
[2021-12-22 21:41] LABS: Alanine Aminotransferase 20 U/L (4-50); Albumin Level 3.9 g/dL (3.5-5.1); Alkaline Phosphatase 63 U/L (38-126); Anion Gap 3 mmol/L (8-16); Aspartate Amino Transferase 29 U/L (17-59); Bilirubin,Total 0.6 mg/dL (0.2-1.3); Blood Urea Nitrogen 23 mg/dL (9-20); Carbon Dioxide 36 mmol/L (22-30); Chloride 100 mmol/L (98-107); Estimated Glomerular Filt Rate > 60; Glucose 127 mg/dL (65-110); Potassium 3.4 mmol/L (3.4-5.0); Sodium 139 mmol/L (137-145)
--- NOTE | 2021-12-22 21:46 | PM.IMHP ---
H&P: HPI History of Present Illness Date/Time: 12/22/21 21:46 Chief Complaint: Speech disturbance Narrative: This is a 71-year-old male with past medical history significant for metastatic prostate CA, hypertension. Patient presents to the emergency room in due to sudden onset speech disturbance with sensation of heavy upper lip and swollen fingers on the left side of his back. Patient denied any headache, vision changes, syncope, near syncope, lightheadedness, vertigo, chest pain, palpitations, nausea, vomiting, abdominal pain, diarrhea, no fevers, no rigors, no chills, no leg swelling no calves pain, no shortness of breath. According to patient he has been his usual state of health up until this moment. Symptoms resolved on its own prior to patient arriving to emergency room. Preliminary workup was nonrevealing. Review of Systems Review of Systems: Speech disturbance. Constitutional: Constitutional: Denies chills, Denies fatigue, Denies fever(s), Denies headache(s), Denies malaise, Denies poor appetite and Denies weakness Eyes: Eyes: Denies blurry vision, Denies change in vision and Denies diplopia ENT: Denies dysphagia, Denies vertigo, Denies dizziness, Denies headache(s), Denies nasal congestion, Denies nasal discharge, Denies nasal obstruction and Denies odynophagia Cardiovascular: Cardiovascular: Denies pedal edema, Denies leg edema, Denies lightheadedness, Denies radiating jaw, neck or arm pain, Denies palpitations and Denies dyspnea on exertion Respiratory: Respiratory: Denies cough, Denies excessive phlegm production and Denies dyspnea Gastrointestinal: Gastrointestinal: Denies abdominal pain, Denies dyspepsia, Denies heartburn, Denies nausea and Denies vomiting Genitourinary: Genitourinary: Denies dysuria Musculoskeletal: Musculoskeletal: Denies back pain, Denies myalgias, Denies arthralgias, Denies joint swelling, Denies numbness and Denies tingling Integumentary/Breasts: Skin/Breast: Denies rash Neurologic: Denies focal weakness and Denies Sensory deficit (Neuro) Psychiatric: Psychiatric: Reports no additional psychiatric complaints and Reports as per HPI Endocrine: Endocrine: Denies cold intolerance, Denies fatigue, Denies heat intolerance, Denies polyphagia, Denies polydipsia and Denies palpitations Hematologic/Lymphatic: Hematologic/Lymphatic: Reports no additional hematologic/lymphatic complaints and Reports as per HPI Allergic/Immunologic: Allergic/Immunologic: Reports no additional allergic/immunologic complaints and Reports as per HPI [facility]LY [facility] Past Medical History Medical History Environmental allergies Essential (primary) hypertension GERD (gastroesophageal reflux disease) History of colon polyps History of COVID-19 (~09/2021) Prediabetes Prostate cancer prostatectomy 2011 Surgical History Surgical History History of appendectomy 1950s History of radical prostatectomy 2011 History of vasectomy Hx of cystoscopy 12/23 - left ureteroscopy for stone extraction Family History Family History Other Diabetes mellitus Family history of coronary artery disease Hypertension Malignant neoplasm of prostate Social History Social History Smoking status: Never smoker Second hand tobacco smoke exposure: No Alcohol intake: never Alcohol use details: SOCIAL IN DISTANCE PAST Substance use: never Substance use type: does not use Additional living arrangements comments: , SON Gender identity (if verbalized by the patient): Male Spiritual care concerns: No Meds Home Medications and Allergies Home Medications Medication Instructions Recorded Confirmed Type Centrum Silver Men 1 tablet PO DAILY 08/11/19 12/22/21 History cholecalciferol (vitamin D3)
[2021-12-22 21:59] LABS: Troponin I < 0.012 ng/mL (0.000-0.034)
--- NOTE | 2021-12-22 22:30 | ADMGEN ---
This patient, Jones Gutierrez, was admitted to 2 Medical Room 241-. Patient/family oriented to hospital policies and general routines including ID bracelet, bed and alarms, visiting hours, pain management, procedures, bathroom and other care routines, personal items, smoking policy, room service/diet, and visiting hours. Information on how to activate the Rapid Response Team has been discussed. Patient/Family are encouraged to report perceived risks to care and to ask questions if they do not understand what they are told or what they should do.
[2021-12-23] VITALS: PULSE 77
--- NOTE | 2021-12-23 | ECHO_ITS ---
Patient Info Name: Jones Gutierrez Age: 71 years : 1950 Gender: Male Ht: 67 in Wt: 156 lbs BSA: 1.84 m2 HR: 67 bpm BP: 131 / 61 mmHg Technical Quality: Fair Exam Date: 12/23/2021 11:13 AM Exam Location: [facility] Patient Status: Outpatient Admit Date: 12/22/2021 Staff Ordering Physician: Rick Lopez MD Retail Account Executive: Kathryn Fonseca RDCS Attending Provider: Ama Urbina Referring Physician: John BENJAMIN; Exam Type: CA echo dop color flow w con Study Info Indications G45.8 - Other transient cerebral ischemic attacks and related syndromes Complete two-dimensional, color flow and Doppler transthoracic echocardiogram is performed with contrast to opacify the left ventricle and to improve the deliniation of the left ventricle endocardial borders. Contrast/Agitated Saline Contrast/Ag. Saline: Definity Amount: 2.00 ml Administered By: Kathryn Fonseca RDCS Existing IV Access: Yes IV Access Condition: patent with no signs of infiltration Summary 1. Left ventricular chamber dimension is normal. 2. Definity contrast administered improved wall motion interpretation. 3. Left ventricular systolic function is normal, estimated at 60-65%. 4. The left ventricular diastolic function is grade II diastolic dysfunction. 5. E/e' 8 is minimally elevated. 6. There is trace mitral valve regurgitation. 7. There is mild tricuspid valve regurgitation. 8. Mild pulmonary hypertension, estimated pulmonary arterial systolic pressure is 40 mmHg. Left Ventricle E/e' 8 is minimally elevated. Definity contrast administered improved wall motion interpretation. Left ventricular chamber dimension is normal. Left ventricular systolic function is normal, estimated at 60-65%. The left ventricular diastolic function is grade II diastolic dysfunction. Right Ventricle Right ventricular systolic function is normal and TAPSE 2.5 cm. Right ventricular chamber dimension is normal. Left Atria Left atrial chamber dimension is normal. Right Atria Right atrial chamber dimension is normal. Aortic Valve The aortic valve is trileaflet. There is no aortic valve stenosis. There is no aortic valve regurgitation. Pulmonic Valve There is no pulmonic regurgitation. Mitral Valve There is no mitral valve stenosis. There is trace mitral valve regurgitation. Tricuspid Valve There is mild tricuspid valve regurgitation. Mild pulmonary hypertension, estimated pulmonary arterial systolic pressure is 40 mmHg. Pericardium/Pleural There is no pericardial effusion. Inferior Vena Cava Normal inferior vena cava with >50% collapse upon inspiration consistent with normal right atrial pressure, 5 mmHg. Aorta The aortic root size at the sinus of Valsalva is normal. Left Ventricular Outflow Tract Name Value Normal LVOT 2D LVOT Diameter 2.01 cm LVOT Doppler LVOT Peak Gradient 3 mmHg LVOT Mean Gradient 2 mmHg LVOT VTI 18.83 cm LVOT VTI/AV VTI Ratio 0.81
[2021-12-23 04:00] VITALS: PULSE 54
[2021-12-23 05:44] VITALS: BP 131/61; PULSE 65; RESP 16; TEMP 36.6; O2SAT 99
[2021-12-23] MEDS: CHOLECALCIFEROL 1,000 UNITS TABLET 2000 UNITS PO (08:29)
[2021-12-23] MEDS: FAMOTIDINE 20 MG TABLET PO (08:29)
[2021-12-23] MEDS: LORATADINE 10 MG TABLET PO (08:29)
[2021-12-23] MEDS: MIRABEGRON 25 MG ER TABLET PO (08:29)
[2021-12-23] MEDS: hydroCHLOROthiazide 25 MG TABLET PO (08:30)
[2021-12-23] MEDS: ASCORBIC ACID 500 MG TABLET 1000 MG PO (08:30)
[2021-12-23] MEDS: OPTI-GEN TAB 1 TABLET PO (08:30)
[2021-12-23] MEDS: ACIDOPHILUS/BULGARICUS CHEWABLE TABLET 1 TABLET PO (08:31)
[2021-12-23] MEDS: SERTRALINE HCL 25 MG TABLET PO (08:31)
[2021-12-23] MEDS: lisinopriL 20 MG TABLET PO (08:31)
[2021-12-23] MEDS: predniSONE 5 MG TABLET PO (08:32)
[2021-12-23 09:00] VITALS: O2SAT 98
[2021-12-23] MEDS: ZINC SULFATE 220 MG CAPSULE PO (09:28)
[2021-12-23 09:40] LABS: Basophils Percent Auto 0.5 % (0.2-1.2); Eosinophils Absolute Auto 0.1 K/mm3 (0-0.3); Eosinophils Percent Auto 2.1 % (0-4.4); Hematocrit 40.5 % (42.0-52.0); Hemoglobin 13.7 g/dL (14.0-18.0); Immature Granulocyte Absolute 0.01 K/mm3 (0.00-0.031); Immature Granulocyte Percent A 0.2 % (0-0.5); Lymphocytes Absolute Auto 1.46 K/mm3 (0.9-3.2); Lymphocytes Percent Auto 23.7 % (18.3-44.2); Mean Corpuscular HGB Conc 33.8 g/dl (32-36); Mean Corpuscular Hemoglobin 32.9 pg (26-34); Mean Corpuscular Volume 97.1 fl (80-100); Mean Platelet Volume 9.7 fl (7.4-10.4); Monocytes Absolute Auto 0.6 K/mm3 (0.1-0.6); Monocytes Percent Auto 10.1 % (2.6-8.5); Neutrophils Absolute Auto 3.9 K/mm3 (1.3-6.7); Neutrophils Percent Auto 63.4 % (45.5-73.1); Platelet Count Result 164 k/mm3 (150-375); Red Blood Count 4.17 M/mm3 (4.6-6.20); Red Cell Distribution Width 12.7 % (11.5-14.5); White Blood Count 6.2 K/mm3 (4.5-10.0)
[2021-12-23 09:52] LABS: Partial Thromboplastin Time 28.1 SECONDS (22.3-36.8); Prothrombin Time 13.2 Seconds (11.1-14.7)
--- NOTE | 2021-12-23 11:34 | PM.TDS ---
Transfer Discharge Sum: Prov Provider Date of admission: 12/22/21 21:48 Primary care physician: Jamee Moreau MD Admitting clinician: Rick Lopez MD Consults: 12/23/21 Consult to Physician Routine Comment: Spoke with Dr. Steward at 0930. TH, RN Consulting Provider: Ama Urbina tunnel elastic operator lockstitch/MD group to consult: Neurology Reason for consultation: Suspect new CVA/TIA Has provider been notified: Yes DS: Admitting Diagnosis Discharge Date 12/23/2021 Admitting Diagnosis Brain TIA HTN GERD Malignant Prostate Cancer DS: Discharge Diagnosis Discharge Diagnosis (1) Brain TIA: Code(s): G45.9 - Transient cerebral ischemic attack, unspecified Status: Acute Assessment and Plan: - CT noncontrast of the head with no acute bleeding - Echocardiogram in am - Symptoms Resolved - MRI of brain shows small, Right sided subarachnoid hemorrhage. - No current deficits. - Accepted at [facility] by Dr. Busby at 1132 (2) Essential (primary) hypertension: Code(s): I10 - Essential (primary) hypertension Status: Acute Assessment and Plan: - Continue to monitor (3) GERD (gastroesophageal reflux disease): Qualifiers: Esophagitis presence: without esophagitis Qualified Code(s): K21.9 - Gastro-esophageal reflux disease without esophagitis Code(s): K21.9 - Gastro-esophageal reflux disease without esophagitis Status: Acute Assessment and Plan: - Continue Pepcid (4) Prostate cancer: Code(s): C61 - Malignant neoplasm of prostate Status: Acute Assessment and Plan: - On hormonal treatment - Follow-up in outpatient setting. Transfer Discharge Sum: Med Medications Active and Home Medications: Home Medications Centrum Silver Men 1 tablet PO DAILY 08/11/19 [History Confirmed 12/22/21] cholecalciferol (vitamin D3) [Vitamin D3] 2,000 unit PO DAILY 08/11/19 [History Confirmed 12/22/21] prednisone 5 mg PO BID 08/11/19 [History Confirmed 12/22/21] leuprolide (3 month) 22.5 mg (3 month) subcutaneous syringe 22.5 mg SUB-Q [id number] 08/19/19 [History Confirmed 12/22/21] loratadine 10 mg tablet 10 mg PO DAILY 08/19/19 [History Confirmed 12/22/21] abiraterone 500 mg tablet 1,000 mg PO QAM 08/24/19 [History Confirmed 12/22/21] lactobacillus combination no.9 4 billion cell capsule 4,000 mmu cells PO QAM 07/05/20 [History Confirmed 12/22/21] ibuprofen 400 mg PO Q6H PRN 04/16/21 [History Confirmed 12/22/21] famotidine 20 mg tablet 20 mg PO BID #180 tablet 05/09/21 [Rx Confirmed 12/22/21] ascorbic acid (vitamin C) 1,000 mg tablet 1 g PO DAILY 10/08/21 [History Confirmed 12/22/21] zinc 50 mg tablet 50 mg PO DAILY 10/08/21 [History Confirmed 12/22/21] atorvastatin 40 mg tablet 40 mg PO QHS #90 tablet 11/01/21 [Rx Confirmed 12/22/21] lisinopril 20 mg-hydrochlorothiazide 25 mg tablet 1 tablet PO QAM #90 tablet 11/01/21 [Rx Confirmed 12/22/21] mirabegron 25 mg tablet,extended release 24 hr 25 mg PO DAILY 11/27/21 [History Confirmed 12/22/21] sertraline 25 mg tablet 25 mg PO DAILY #90 tablet 12/09/21 [Rx Confirmed 12/22/21] Active Medications Acetaminophen (Acetaminophen 325 Mg Tablet) 650 mg PO Q4H PRN PRN Reason: Mild Pain (1-3) or Fever Hydrocodone Bitart/Acetaminophen (Hydrocodone/Acetaminophen (*Crx) 5-325 Mg Tablet) 1 tab PO Q4H PRN PRN Reason: Pain Rated 7-10 Ascorbic Acid (Ascorbic Acid 500 Mg Tablet) 1,000 mg PO DAILY [facility] Last Admin: 12/23/21 08:30 Dose: 1,000 mg Documented by: Atorvastatin Calcium (Atorvastatin 40 Mg Tablet) 40 mg PO HS [facility] Famotidine (Famotidine 20 Mg Tablet) 20 mg PO Q12HR [facility] Last Admin: 12/23/21 08:29 Dose: 20 mg Documented by: Hydrochlorothiazide (Hydrochlorothiazide 25 Mg Tablet) 25 mg PO QAM [facility] Stop: 01/22/22 08:59 Last Admin: 12/23/21 08:30 Dose: 25 mg Documented by: Ibuprofen (Ibuprofen 400 Mg Tablet) 400 mg PO Q6H PRN PRN Reason: Pain (Scale Score 4-6) Lactobacillus Acidophilus (Acidophilus/Bulgaricus Ch
[2021-12-23 12:00] VITALS: PULSE 69
[2021-12-23] MEDS: PERFLUTREN LIPID MICROSPHERES 1.5 ML VIAL DILUTED TO 10 ML TOTAL VOLUME IV PUSH (12:02)
== END 2021-12-23 13:57 ==
LOC: ANHED 21:50 → ANH2MED 21:58
PROVIDERS: Admitting Provider Internal Medicine; Emergency Provider Emergency Medicine; PCP Family Medicine; Visit Provider Nurse Practitioner Adult Health
DX: G45.9 Transient cerebral ischemic attack, unspecified (principal); R47.81 Slurred speech; C61 Malignant neoplasm of prostate; I10 Essential (primary) hypertension; R73.03 Prediabetes; I36.1 Nonrheumatic tricuspid (valve) insufficiency; I27.20 Pulmonary hypertension, unspecified; K21.9 Gastro-esophageal reflux disease without esophagitis; Z86.16 Personal history of COVID-19
CPT/HCPCS: 36415; 70450; 70496; 70498; 70553; 71046; 80053; 84484; 85025; 85610; 85730; 93005; 96374; 97161; 97165; 99285; A9270; A9577; C8929; G0378; J7512; Q9957; Q9967

== ENCOUNTER 2022-02-13 11:19 | Emergency (ER) | payer MEDICARE, SELFPAY ==
[2022-02-13] VITALS (10 sets, daily range): BP systolic 107–137; BP diastolic 52–89; PULSE 56–90; RESP 12–18; TEMP 36.4; O2SAT 94–98
--- NOTE | ~2022-02-13 | CT_ITS ---
EXAMINATION: CT brain wo con DATE: 02/13/2022 11:45 INDICATION: Altered mental status post stroke TECHNIQUE: Computed tomography (CT) of the head was performed without intravenous contrast. Sagittal and coronal reconstructions were performed. The mA was adjusted according to patient size. Iterative reconstruction technique was employed. The dose-length product was 605.33 mGy-cm. COMPARISON: head CT dated 12/22/2021 and MRI dated 12/23/2021 FINDINGS: There are 3 small foci of increased attenuation suspicious for subarachnoid hemorrhage in the right f rontal lobe in a region of prominent decreased white matter attenuation which is new since the prior study. More subtle focus of likely subarachnoid hemorrhage along the more anterior gyrus in the right frontal lobe without significant underlying white matter hypoattenuation. The decreased white matter hypoattenuation is new since the prior study could be related to either acute infarct or vasogenic e sunshine potentially related to the hemorrhage. Ventricles are normal and symmetric. No mass/mass effect. The orbits, paranasal sinuses and mastoid air cells are normal. IMPRESSION: 1. Interval progression of now a few small foci of likely subarachnoid hemorrhage along the anterior right frontal lobe. Likely prominent focal underlying white matter hypoattenuation which is new since the prior study and could represent either acute infarct or vasogenic edema related to the likely on going subarachnoid hemorrhage. No evident underlying enhancing brain lesion on the prior MRI. Reviewed, dictated and finalized at location A. IMPRESSION: 1. Interval progression of now a few small foci of likely subarachnoid hemorrha ge along the anterior right frontal lobe. Likely prominent focal underlying whi te matter hypoattenuation which is new since the prior study and could represen t either acute infarct or vasogenic edema related to the likely ongoing subarac hnoid hemorrhage. No evident underlying enhancing brain lesion on the prior MRI .
--- NOTE | ~2022-02-13 | XR_ITS ---
XR chest 1V portable DATE: 02/13/2022 12:43 INDICATION: Transient alteration of awareness TECHNIQUE: Portable upright AP chest on 02/13/2022 at 1239 hours COMPARISON: 12/22/2021 2 view chest FINDINGS: Normal heart size. No hilar or mediastinal enlargement. Thoracic aortic arch calcification. Diffuse osteopenia. No pulmonary infiltrate or consolidation, pleural effusion or pulmonary vascular congestion or pneumo thorax. IMPRESSION: No active cardiopulmonary disease Reviewed, dictated and finalized at location B.
--- NOTE | 2022-02-13 12:25 | ECG_ITS ---
Measurements Intervals [place] Rate: 61 P: 85 SC: 156 QRS: -2 QRSD: 90 T: 18 QT: 348 QTc: 352 Interpretive Statements SINUS RHYTHM BORDERLINE ST-T WAVE ABNORMALITY- ANTEROLAT/INF LEADS BASELINE ARTIFACT- I, II, AVR, AVF, V1 BORDERLINE ECG Electronically Signed On 02-13-2022 13:37:15 CDT by Ray Pearl D.O.
--- NOTE | 2022-02-13 12:25 | ED.AMS ---
HPI - Altered Mental Status General Chief Complaint: Altered Mental Status Stated Complaint: alt mental status- hx of bleed 6 weeks ago Time Seen by Provider: 02/13/22 12:25 Source: patient and family Mode of arrival: wheelchair Limitations: no limitations History of Present Illness HPI narrative: The patient is a 71 year old male with history of hypertension, hyperlipidemia, pre diabetes, GERD, allergies, history of renal stones, prostate cancer, subarachnoid hemorrhage, cerebral venous thrombosis, seizures, depression presenting to the emergency department for evaluation of altered mental status. Patient currently at bedside is awake alert and oriented to person, place, and to time. Patient has difficulty recalling specific details, but states that he has felt somewhat confused over the past week. He is otherwise unable to provide specific history. Patient does deny any pain in his chest or abdomen. He reports mild headache pain and pain above his right eye. Patient denies nausea or vomiting. Family at bedside states that the patient has had worsening cognition over the past week. They denies recent fall or injury. Patient is denying any focal weakness or numbness. Patient is anticoagulated on Eliquis. Denies fever, chills, cough, shortness of breath. Patient has been compliant with his medications. Related Data Home Medications Medication Instructions Recorded Confirmed leuprolide (3 month) 22.5 mg (3 22.5 mg SUB-Q [id number] 08/19/19 02/10/22 month) subcutaneous syringe abiraterone 500 mg tablet 1,000 mg PO QAM 08/24/19 02/10/22 mirabegron 25 mg tablet,extended 25 mg PO DAILY 11/27/21 02/10/22 release 24 hr hydrochlorothiazide 25 mg tablet 25 mg PO DAILY tablet 01/06/22 02/10/22 rivaroxaban 20 mg tablet 20 mg PO DAILY tablet 01/06/22 02/10/22 levetiracetam 1,000 mg tablet 1,500 mg PO BID tablet 02/10/22 02/10/22 prednisone 5 mg tablet 5 mg PO DAILY tablet 02/10/22 02/10/22 sertraline [Zoloft] 25 mg PO DAILY 02/13/22 Allergies Allergy/AdvReac Type Severity Reaction Status Date / Time No Known Allergies Allergy Verified 02/10/22 13:48 Review of Systems Review of Systems: CONSTITUTIONAL: Denies fever CARDIOVASCULAR: Denies chest pain RESPIRATORY: Denies cough or dyspnea. GASTROINTESTINAL: Denies abdominal pain SKIN: Denies rash MUSCULOSKELETAL: Denies back pain NEUROLOGIC: Denies headache [facility] Past Medical History Medical History Depression Environmental allergies Essential (primary) hypertension GERD (gastroesophageal reflux disease) History of colon polyps History of COVID-19 (~09/2021) Prediabetes Prostate cancer prostatectomy 2011 Surgical History Surgical History History of appendectomy 1950s History of radical prostatectomy 2011 History of vasectomy Hx of cystoscopy 12/23 - left ureteroscopy for stone extraction 04/24: Urethral stricture dilatation Family History Family History Other Diabetes mellitus Family history of coronary artery disease Hypertension Malignant neoplasm of prostate Social History Social History Second hand tobacco smoke exposure: No Alcohol intake: never Alcohol use details: SOCIAL IN DISTANCE PAST Substance use: never Substance use type: does not use Additional living arrangements comments: , SON Gender identity (if verbalized by the patient): Male Spiritual care concerns: No Exam Narrative: GENERAL: Awake, alert, conversant HEAD: Normocephalic, atraumatic. EYES: 2+ PERRLA and EOMI. ENT: Nares clear, no rhinorrhea or epistaxis. Mucous membranes moist. NECK: Supple. CHEST: No respiratory distress, breathing even and non labored HEART: Regular rate, sinus rhythm ABDOMEN:Non distended, non tend
[2022-02-13] MEDS: SODIUM CHLORIDE 0.9% IV 1,000 ML 999 ML IV CONT (12:56)
--- NOTE | 2022-02-13 12:57 | PC.NURSE ---
[facility] accepted [facility] to [facility] ETA 1 hr Trip # [id number]
[2022-02-13 13:06] LABS: Basophils Percent Auto 0.3 % (0.2-1.2); Eosinophils Percent Auto 0.4 % (0-4.4); Hematocrit 40.2 % (42.0-52.0); Hemoglobin 13.8 g/dL (14.0-18.0); Immature Granulocyte Absolute 0.02 K/mm3 (0.00-0.031); Immature Granulocyte Percent A 0.3 % (0-0.5); Lymphocytes Absolute Auto 1.04 K/mm3 (0.9-3.2); Lymphocytes Percent Auto 14.1 % (18.3-44.2); Mean Corpuscular HGB Conc 34.3 g/dl (32-36); Mean Corpuscular Hemoglobin 32.5 pg (26-34); Mean Corpuscular Volume 94.6 fl (80-100); Mean Platelet Volume 9.7 fl (7.4-10.4); Monocytes Absolute Auto 0.4 K/mm3 (0.1-0.6); Monocytes Percent Auto 5.4 % (2.6-8.5); Neutrophils Absolute Auto 5.9 K/mm3 (1.3-6.7); Neutrophils Percent Auto 79.5 % (45.5-73.1); Platelet Count Result 172 k/mm3 (150-375); Red Blood Count 4.25 M/mm3 (4.6-6.20); Red Cell Distribution Width 12.9 % (11.5-14.5); White Blood Count 7.4 K/mm3 (4.5-10.0)
[2022-02-13 13:19] LABS: Alanine Aminotransferase 20 U/L (6-50); Albumin Level 3.7 g/dL (3.5-5.1); Alkaline Phosphatase 66 U/L (38-126); Anion Gap 6 mmol/L (8-16); Aspartate Amino Transferase 25 U/L (17-59); Bilirubin,Total 0.9 mg/dL (0.2-1.3); Blood Urea Nitrogen 22 mg/dL (9-20); Calcium 8.8 mg/dL (8.4-10.2); Carbon Dioxide 33 mmol/L (22-30); Chloride 99 mmol/L (98-107); Estimated CRCL calculation 84 ml/min; Estimated Glomerular Filt Rate > 60; Glucose 123 mg/dL (65-110); Potassium 3.3 mmol/L (3.4-5.0); Sodium 138 mmol/L (137-145)
[2022-02-13 13:30] LABS: Troponin I < 0.012 ng/mL (0.000-0.034)
[2022-02-13 13:31] LABS: INR 1.2; Prothrombin Time 14.3 Seconds (11.1-14.7)
[2022-02-13 13:32] LABS: Partial Thromboplastin Time 32.5 SECONDS (22.3-36.8)
[2022-02-13 13:44] LABS: SARS-CoV-2 RNA PCR Negative
[2022-02-13 13:47] LABS: Appearance Urine Clear (Clear); Bilirubin Urine Negative (Negative); Blood Urine Trace-lysed (Negative); Color Urine Yellow (Yellow); Glucose Urine UA Negative (Negative); Ketones Urine Negative (Negative); Leukocyte Esterase Ur Negative LEU/UL (Negative); Nitrate Urine Negative (Negative); Protein Urine Negative (Negative); Specific Grav Ur 1.015 (1.001-1.035); pH Urine 8.5 (5.0-9.0)
[2022-02-13 13:58] LABS: WBC Urine 0-3 /hpf
[2022-02-13 14:06] LABS: Add Urine Microscopic? YES
[2022-02-17 07:41] LABS: Levetiracetam Keppra 59.3 mcg/mL (12.0-46.0)
== END 2022-02-13 15:00 | disposition short-term general hospital (02) ==
PROVIDERS: Emergency Provider Emergency Medicine; PCP Family Medicine
DX: I60.9 Nontraumatic subarachnoid hemorrhage, unspecified (principal); R41.82 Altered mental status, unspecified; I10 Essential (primary) hypertension; F32.9 Major depressive disorder, single episode, unspecified; Z20.822 Contact with and (suspected) exposure to COVID-19; Z85.46 Personal history of malignant neoplasm of prostate
CPT/HCPCS: 36415; 70450; 71045; 80053; 80177; 81001; 84484; 85025; 85610; 85730; 93005; 96360; 99291; C9803; J7030; U0003; U0005

== ENCOUNTER 2022-02-26 13:33 | Outpatient (CLI) | payer MEDICARE, SELFPAY ==
--- NOTE | ~2022-02-26 | CT_ITS ---
EXAMINATION: CT abdomen pelvis wo/w con DATE: 02/26/2022 14:27 INDICATION: GROSS HEMATURIA TECHNIQUE: Computed tomography (CT) of the abdomen and pelvis was performed without and with 130 mL O mnipaque 300 intravenous contrast. Automated exposure control and iterative reconstruction technique were employed. The dose-length product was 672.38 mGy-cm. COMPARISON: 09/29/2021. FINDINGS: Lower thorax: Mild coronary artery calcifications. Small hiatal hernia. Liver: Left lobe cyst or hemangioma. Left and right lobe too small to characterize lesion likely repr esents cysts. Biliary/Gallbladder: Gallbladder is normal. No bile duct dilation. Pancreas: No mass or duct dilation. Spleen: Normal. Adrenals:No mass. Kidneys: No mass, stone, or hydronephrosis. Left kidney too small to characterize lesions, likely rep resent cysts. The distal left ureter does not fill with contrast. No filling defects. GI tract: No small or large bowel dilation. Scattered diverticuli without diverticulitis. Appendix no t visualized. Mesentery/Peritoneum: No ascites, mass, or free air. Retroperitoneum: No mass. Atherosclerotic arterial calcifications. Pelvis: The bladder is nondistended in the noncontrast exam. Incomplete distention in the postcontras t views. No filling defect. Prostate not well visualized patient may be status post prostatectomy or TURP. Soft Tissues: Small fat-containing umbilical and bilateral inguinal hernias. Anterior abdominal wall injection granulomas. Bones: No acute osseous finding. IMPRESSION: Exam limited by nonfilling of the otherwise normal-appearing left ureter and incomplete bladder diste ntion. Within those constraints, no collecting system abnormality is detected. Reviewed, dictated and finalized at location K. IMPRESSION: Exam limited by nonfilling of the otherwise normal-appearing left ureter and in complete bladder distention. Within those constraints, no collecting system abn ormality is detected.
== END 2022-02-26 13:34 | disposition home or self-care (01) ==
LOC: ANHIMG 13:33
PROVIDERS: PCP Family Medicine; Visit Provider Nurse Practitioner Adult Health
DX: R31.0 Gross hematuria (principal)
CPT/HCPCS: 74178; Q9967

== ENCOUNTER 2022-03-05 13:24 | Emergency (ER) | payer MEDICARE, SELFPAY ==
[2022-03-05] VITALS (12 sets, daily range): BP systolic 118–131; BP diastolic 53–74; PULSE 51–70; RESP 9–19; TEMP 36.4–36.8; O2SAT 94–98
--- NOTE | ~2022-03-05 | XR_ITS ---
EXAMINATION: XR chest 1V INDICATION: Weakness and headache TECHNIQUE: AP view of the chest is obtained. COMPARISON: 02/13/2022 FINDINGS: The lungs are free of acute opacities. There is no pleural effusion or pneumothorax. The ca rdiomediastinal silhouette is normal. IMPRESSION: 1. No acute cardiopulmonary abnormality. Reviewed, dictated and finalized at location F.
--- NOTE | ~2022-03-05 | CT_ITS ---
EXAMINATION: CT brain wo con INDICATION: Weakness after CVA COMPARISON: 02/13/2022 TECHNIQUE: Standard unenhanced head CT. The dose-length product (DLP) was 681.00 mGy-cm. The mA was a djusted according to patient size. Iterative reconstruction technique was employed. FINDINGS: There is no acute intraparenchymal hemorrhage. No evidence of mass lesion. No evidence of a cute infarction. There is an evolving infarct of the right frontal lobe. Punctate foci of hemorrhage are again noted along the cortical gyri which have not significantly changed. There is mild periventr icular and subcortical hypodensity probably related to small vessel ischemic disease. There is mild p rominence of the sulci and ventricles related to cerebral atrophy. Intracranial calcified cerebral at herosclerosis is noted. There are no extra-axial collections. There is no mass effect or midline shif t. The orbits and soft tissues are unremarkable. The visualized sinuses and mastoid air cells are wel l aerated. IMPRESSION: 1. Evolving infarct of the right frontal lobe with unchanged punctate foci of hemorrhagic conversion. 2. Age related findings. Reviewed, dictated and finalized at location F. IMPRESSION: 1. Evolving infarct of the right frontal lobe with unchanged punctate foci of h emorrhagic conversion. 2. Age related findings.
--- NOTE | 2022-03-05 14:03 | ECG_ITS ---
Measurements Intervals [facility] Rate: 54 P: 62 OK: 156 QRS: -21 QRSD: 94 T: 19 QT: 360 QTc: 343 Interpretive Statements SINUS BRADYCARDIA BORDERLINE LEFT AXIS DEVIATION [QRS AXIS < -20] NONSPECIFIC T-WAVE ABNORMALITY BORDERLINE ECG COMPARED TO ECG 02/13/2022 13:29:06 SINUS BRADYCARDIA NOW PRESENT Electronically Signed On 03-05-2022 14:40:59 CDT by Arron Du M.D.
[2022-03-05 14:52] LABS: Basophils Percent Auto 0.5 % (0.2-1.2); Eosinophils Percent Auto 0.5 % (0-4.4); Hematocrit 41.1 % (42.0-52.0); Hemoglobin 13.8 g/dL (14.0-18.0); Immature Granulocyte Absolute 0.01 K/mm3 (0.00-0.031); Immature Granulocyte Percent A 0.2 % (0-0.5); Lymphocytes Absolute Auto 0.97 K/mm3 (0.9-3.2); Lymphocytes Percent Auto 15.4 % (18.3-44.2); Mean Corpuscular HGB Conc 33.6 g/dl (32-36); Mean Corpuscular Hemoglobin 32.2 pg (26-34); Mean Corpuscular Volume 95.8 fl (80-100); Monocytes Absolute Auto 0.5 K/mm3 (0.1-0.6); Monocytes Percent Auto 8.4 % (2.6-8.5); Neutrophils Absolute Auto 4.7 K/mm3 (1.3-6.7); Platelet Count Result 212 k/mm3 (150-375); Red Blood Count 4.29 M/mm3 (4.6-6.20); Red Cell Distribution Width 13.2 % (11.5-14.5); White Blood Count 6.3 K/mm3 (4.5-10.0)
[2022-03-05 14:59] LABS: Alanine Aminotransferase 28 U/L (6-50); Albumin Level 4.1 g/dL (3.5-5.1); Alkaline Phosphatase 60 U/L (38-126); Anion Gap 6 mmol/L (8-16); Aspartate Amino Transferase 32 U/L (17-59); Bilirubin,Total 0.8 mg/dL (0.2-1.3); Blood Urea Nitrogen 22 mg/dL (9-20); Carbon Dioxide 30 mmol/L (22-30); Chloride 101 mmol/L (98-107); Estimated Glomerular Filt Rate > 60; Glucose 125 mg/dL (65-110); Lipase 42 U/L (23-300); Magnesium 2.1 mg/dL (1.6-2.3); Potassium 3.8 mmol/L (3.4-5.0); Sodium 137 mmol/L (137-145)
[2022-03-05 15:02] LABS: INR 1.5; Partial Thromboplastin Time 32.4 SECONDS (22.3-36.8); Prothrombin Time 17.4 Seconds (11.1-14.7)
--- NOTE | 2022-03-05 15:03 | ED.WEAKNESS ---
HPI - Weakness General Chief complaint: Weakness Stated complaint: generalized weakness Time Seen by Provider: 03/05/22 13:33 Source: patient and family Mode of arrival: EMS History of Present Illness HPI Narrative: This is a 72 year old male with history of Cerebral venous thrombosis, CVA with hemorrhagic conversion who presents with family due to intermittent weakness. Patient suffered CVA with hemorrhagic conversion 2 months ago. [facility] occurrence. Patient was recently [facility] from [facility]. His family states patient has continued to have intermittent episodes of weakness since December. They deny any focal deficits. He is currently being placed on warfarin . Family denies any recent falls. They denies bloody stools or melena. Patient does not have any complaints now. He states he did have headache but it has resolved. His noticed patient has subconjunctival hemorrhage so they brought patient in to be evaluated. PAtient denies eye pain or blurred vision. Related Data Home Medications Medication Instructions Recorded Confirmed leuprolide (3 month) 22.5 mg (3 22.5 mg subcut [id number] 08/19/19 02/25/22 month) subcutaneous syringe (Eligard) abiraterone 500 mg tablet (Zytiga) 1,000 mg PO QAM 08/24/19 02/25/22 mirabegron 25 mg tablet,extended 25 mg PO DAILY 11/27/21 02/25/22 release 24 hr (Myrbetriq) hydrochlorothiazide 25 mg tablet 25 mg PO DAILY 01/06/22 02/25/22 levetiracetam 1,000 mg tablet 1,500 mg PO BID 02/10/22 02/25/22 prednisone 5 mg tablet 5 mg PO DAILY 02/10/22 02/25/22 enoxaparin 60 mg/0.6 mL 60 mg subcut Q12H 02/25/22 02/25/22 subcutaneous syringe Allergies Allergy/AdvReac Type Severity Reaction Status Date / Time No Known Allergies Allergy Verified 02/25/22 11:23 Review of Systems Review of Systems: All systems reviewed & are unremarkable except as noted in HPI and below Constitutional: Constitutional: Denies chills, Denies fatigue and Reports weakness Eyes: Eyes: Denies change in vision and Denies photophobia Cardiovascular: Cardiovascular: Denies chest pain Respiratory: Respiratory: Denies chest congestion, Denies cough and Denies dyspnea Gastrointestinal: Gastrointestinal: Denies abdominal pain, Denies diarrhea, Denies nausea and Denies vomiting Neurologic: Reports headache(s) and Denies focal weakness PMFSH Past Medical History Medical History (Updated 03/05/22 @ 16:48 by Alma Tinajero MD) Chronic anticoagulation Depression Environmental allergies Essential (primary) hypertension GERD (gastroesophageal reflux disease) History of colon polyps History of COVID-19 (~09/2021) Prediabetes Prostate cancer prostatectomy 2011 Surgical History Surgical History History of appendectomy 1950s History of radical prostatectomy 2011 History of vasectomy Hx of cystoscopy 12/23 - left ureteroscopy for stone extraction 04/24: Urethral stricture dilatation Family History Family History Other Diabetes mellitus Family history of coronary artery disease Hypertension Malignant neoplasm of prostate Social History Social History Smoking status: Never smoker Second hand tobacco smoke exposure: No Alcohol intake: never Alcohol use details: SOCIAL IN DISTANCE PAST Substance use: never Substance use type: does not use Additional living arrangements comments: , SON Gender identity (if verbalized by the patient): Male Spiritual care concerns: No Exam Const: Nutritional Appearance: well nourished Other: oriented to person, place, age HENMT: Head: normal to inspection Ears: external ears normal General nose exam: Normal external nose present Mouth: Yes Normal oral and palatal mucosa present, Yes lip normal and Yes moist mucous membranes T
[2022-03-05 15:17] LABS: SARS-CoV-2 RNA PCR Negative
[2022-03-05] MEDS: SODIUM CHLORIDE 0.9% IV 500 ML 999 ML IV CONT (15:31)
[2022-03-05 15:32] LABS: Appearance Urine Clear (Clear); Bilirubin Urine Negative (Negative); Color Urine Yellow (Yellow); Glucose Urine UA Negative (Negative); Ketones Urine Negative (Negative); Leukocyte Esterase Ur Negative LEU/UL (Negative); Nitrate Urine Negative (Negative); Protein Urine Negative (Negative); Specific Grav Ur 1.015 (1.001-1.035); Urobilinogen Urine 0.2 mg/dL (<2.0)
[2022-03-05 15:35] LABS: Add Urine Microscopic? YES; Blood Urine Trace-Intact (Negative)
[2022-03-05 15:43] LABS: Bacteria Urine Trace /hpf; WBC Urine 0-3 /hpf
== END 2022-03-05 17:23 | disposition home or self-care (01) ==
PROVIDERS: Emergency Provider General Practice; PCP Family Medicine
DX: R53.1 Weakness (principal); H11.31 Conjunctival hemorrhage, right eye; Z20.822 Contact with and (suspected) exposure to COVID-19; I69.920 Aphasia following unspecified cerebrovascular disease; I10 Essential (primary) hypertension; R73.03 Prediabetes; K21.9 Gastro-esophageal reflux disease without esophagitis; Z86.16 Personal history of COVID-19; Z86.010 Personal history of colon polyps; Z85.46 Personal history of malignant neoplasm of prostate; Z90.79 Acquired absence of other genital organ(s); Z79.01 Long term (current) use of anticoagulants
CPT/HCPCS: 36415; 70450; 71045; 80053; 81001; 83690; 83735; 85025; 85610; 85730; 93005; 96360; 99283; C9803; J7040; U0003; U0005

== ENCOUNTER 2022-03-11 14:34 | Emergency (ER) | payer MEDICARE, SELFPAY ==
--- NOTE | ~2022-03-11 | XR_ITS ---
EXAMINATION: XR chest 2V 03/11/2022 15:23 INDICATION: Weakness PROCEDURE: 2 view chest COMPARISON: Comparison to multiple prior studies sequentially, with oldest reviewed study dated 12/22. FINDINGS: The lungs are clear. The cardiomediastinal silhouette is within normal limits. There are no pleural effusions. There is no pneumothorax suspected. IMPRESSION: 1: NO ACUTE CARDIOPULMONARY DISEASE. Reviewed, dictated and finalized at location B.
--- NOTE | 2022-03-11 14:55 | ECG_ITS ---
Measurements Intervals [place] Rate: 57 P: 72 MI: 151 QRS: -2 QRSD: 93 T: 55 QT: 408 QTc: 397 Interpretive Statements SINUS BRADYCARDIA LONG QT INTERVAL ABNORMAL ECG COMPARED TO ECG 03/05/2022 13:27:18 NO SIGNIFICANT CHANGES Electronically Signed On 03-12-2022 7:20:58 CDT by Tobias Pickering M.D.
[2022-03-11 14:57] VITALS: BP 114/83; PULSE 56; RESP 18; TEMP 36.7; O2SAT 97
[2022-03-11 15:15] LABS: Basophils Percent Auto 0.5 % (0.2-1.2); Eosinophils Percent Auto 0.6 % (0-4.4); Hematocrit 39.2 % (42.0-52.0); Hemoglobin 13.4 g/dL (14.0-18.0); Immature Granulocyte Absolute 0.01 K/mm3 (0.00-0.031); Immature Granulocyte Percent A 0.2 % (0-0.5); Lymphocytes Absolute Auto 0.97 K/mm3 (0.9-3.2); Lymphocytes Percent Auto 14.7 % (18.3-44.2); Mean Corpuscular HGB Conc 34.2 g/dl (32-36); Mean Corpuscular Hemoglobin 32.4 pg (26-34); Mean Corpuscular Volume 94.7 fl (80-100); Monocytes Absolute Auto 0.5 K/mm3 (0.1-0.6); Monocytes Percent Auto 7.9 % (2.6-8.5); Neutrophils Percent Auto 76.1 % (45.5-73.1); Platelet Count Result 177 k/mm3 (150-375); Red Blood Count 4.14 M/mm3 (4.6-6.20); White Blood Count 6.6 K/mm3 (4.5-10.0)
[2022-03-11 15:26] LABS: Alanine Aminotransferase 26 U/L (6-50); Albumin Level 4.2 g/dL (3.5-5.1); Alkaline Phosphatase 63 U/L (38-126); Anion Gap 6 mmol/L (8-16); Aspartate Amino Transferase 28 U/L (17-59); Bilirubin,Total 0.8 mg/dL (0.2-1.3); Blood Urea Nitrogen 26 mg/dL (9-20); Carbon Dioxide 34 mmol/L (22-30); Chloride 97 mmol/L (98-107); Estimated CRCL calculation 75 ml/min; Estimated Glomerular Filt Rate > 60; Glucose 149 mg/dL (65-110); Potassium 3.5 mmol/L (3.4-5.0); Sodium 137 mmol/L (137-145)
[2022-03-11 15:39] LABS: Appearance Urine Clear (Clear); Bilirubin Urine Negative (Negative); Color Urine Yellow (Yellow); Glucose Urine UA Negative (Negative); Ketones Urine Negative (Negative); Leukocyte Esterase Ur Negative LEU/UL (Negative); Nitrate Urine Negative (Negative); Protein Urine Negative (Negative); Urobilinogen Urine 0.2 mg/dL (<2.0)
[2022-03-11 15:46] LABS: Mucus Urine Rare /lpf; Squamous Epithelial Cell Urine Rare /hpf (Few); WBC Urine 0-3 /hpf
[2022-03-11 15:48] LABS: Add Urine Microscopic? YES; Blood Urine Trace-Intact (Negative)
--- NOTE | 2022-03-11 16:02 | ED.GENADULT ---
HPI - General Adult General Chief complaint: Weakness Stated complaint: dehydration - poor intake and no energy Time Seen by Provider: 03/11/22 15:31 History of Present Illness HPI narrative: 72-year-old male presenting to the emergency department for evaluation of worsening generalized fatigue over the last 3 days. Family states that the patient has been eating but has not been drinking. Patient is alert and oriented but is unsure of why he has not been drinking. Patient has had no fevers or coughs. Patient denies any chest pain or shortness of breath. Patient denies any nausea vomiting or diarrhea. Patient denies any associate abdominal pain. Family states that the patient does have dementia and history of cognitive impairment. Patient is on Coumadin but denies any bleeding. Related Data Home Medications Medication Instructions Recorded Confirmed leuprolide (3 month) 22.5 mg (3 22.5 mg subcut [id number] 08/19/19 02/25/22 month) subcutaneous syringe (Eligard) abiraterone 500 mg tablet (Zytiga) 1,000 mg PO QAM 08/24/19 02/25/22 mirabegron 25 mg tablet,extended 25 mg PO DAILY 11/27/21 02/25/22 release 24 hr (Myrbetriq) hydrochlorothiazide 25 mg tablet 25 mg PO DAILY 01/06/22 02/25/22 levetiracetam 1,000 mg tablet 1,500 mg PO BID 02/10/22 02/25/22 prednisone 5 mg tablet 5 mg PO DAILY 02/10/22 02/25/22 enoxaparin 60 mg/0.6 mL 60 mg subcut Q12H 02/25/22 02/25/22 subcutaneous syringe Allergies Allergy/AdvReac Type Severity Reaction Status Date / Time No Known Allergies Allergy Verified 03/11/22 17:02 Review of Systems Review of Systems: CONSTITUTIONAL: Denies fever, chills, or sweats. EYES: Denies visual changes, redness, or discharge. ENT: Denies rhinorrhea, congestion, sore throat, or otalgia. CARDIOVASCULAR: Denies chest pain, palpitations, or edema. RESPIRATORY: Denies cough or dyspnea. GASTROINTESTINAL: Denies abdominal pain, nausea, vomiting, or diarrhea. GENITOURINARY: Denies dysuria or hematuria. SKIN: Denies rash or itching. MUSCULOSKELETAL: Denies back pain, joint pain, or myalgia. NEUROLOGIC: Denies headache, numbness, or weakness. [facility] Past Medical History Medical History (Updated 03/11/22 @ 17:27 by Asim Velasquez MD) Chronic anticoagulation Depression Environmental allergies Essential (primary) hypertension GERD (gastroesophageal reflux disease) History of colon polyps History of COVID-19 (~09/2021) Prediabetes Prostate cancer prostatectomy 2011 Surgical History Surgical History History of appendectomy 1950s History of radical prostatectomy 2011 History of vasectomy Hx of cystoscopy 12/23 - left ureteroscopy for stone extraction 04/24: Urethral stricture dilatation Family History Family History Other Diabetes mellitus Family history of coronary artery disease Hypertension Malignant neoplasm of prostate Social History Social History Smoking status: Never smoker Second hand tobacco smoke exposure: No Alcohol intake: never Alcohol use details: SOCIAL IN DISTANCE PAST Substance use: never Substance use type: does not use Additional living arrangements comments: , SON Gender identity (if verbalized by the patient): Male Spiritual care concerns: No Exam Narrative: APPEARANCE: Well appearing, no pain, no distress, well-nourished. HEAD: normocephalic, atraumatic. EYES: PERRLA/EOMI, conjunctivae clear. NOSE: Normal no drainage EARS:TMS clear with good light reflex. THROAT: Pharynx clear, no exudate. NECK: Supple. No adenopathy, no masses. RESPIRATORY: Airway patent, respirations nonlabored. Clear to auscultation bilaterally, no rales, rhonchi, wheezing. CARDIOVASCULAR: Regular rate and rhythm without murmurs rubs or gallops. ABDOMINAL: Soft, nontender, nondistended, normal
[2022-03-11 16:07] LABS: INR 2.6; Prothrombin Time 27.1 Seconds (11.1-14.7)
[2022-03-11] MEDS: SODIUM CHLORIDE 0.9% IV 1,000 ML 999 ML IV CONT (16:22)
[2022-03-11 17:12] LABS: Influenza A QL RT-PCR Negative (Negative); Influenza B QL RT-PCR Negative (Negative); SARS-CoV-2 RNA PCR Negative
[2022-03-11 17:42] VITALS: BP 134/67; PULSE 82; RESP 16; O2SAT 98
== END 2022-03-11 17:43 | disposition home or self-care (01) ==
PROVIDERS: Emergency Medicine; Emergency Provider Emergency Medicine; PCP Family Medicine
DX: R53.1 Weakness (principal); Z20.822 Contact with and (suspected) exposure to COVID-19; I10 Essential (primary) hypertension; K21.9 Gastro-esophageal reflux disease without esophagitis; R73.03 Prediabetes; Z85.46 Personal history of malignant neoplasm of prostate; Z86.16 Personal history of COVID-19; Z86.010 Personal history of colon polyps; Z90.79 Acquired absence of other genital organ(s); Z79.01 Long term (current) use of anticoagulants; R00.1 Bradycardia, unspecified; I45.81 Long QT syndrome
CPT/HCPCS: 36415; 71046; 80053; 81001; 85025; 85610; 87502; 93005; 96360; 99283; C9803; J7030; U0003; U0005

== ENCOUNTER 2022-06-23 12:43 | Emergency (ER) | payer MEDICARE, SELFPAY ==
--- NOTE | ~2022-06-23 | CT_ITS ---
EXAMINATION: CT abdomen pelvis wo con DATE: 06/23/2022 13:28 INDICATION: Hematuria. Blood in suprapubic catheter bag. TECHNIQUE: Computed tomography (CT) of the abdomen and pelvis was performed without intravenous contr ast. Automated exposure control and iterative reconstruction technique were employed. Exam dose: 574 .97 mGy-cm total exam DLP. COMPARISON: 02/26/2022 CT abdomen pelvis FINDINGS: There is mild discoid atelectasis or scarring at the lower lobes the lung bases. Cardiomega ly. No pericardial or pleural effusion. Several hepatic cysts are again noted, the largest measuring up to approximately 2.5 cm. The gallbladder is contracted. No pericholecystic fluid or fat stranding. No bile duct dilatation. No pancreatic mass lesion or ductal dilatation. Normal splenic size. Normal morphology of the adrenal glands. Small nonobstructing calcification at the lower pole of the right kidney. No renal mass lesion, urete ral calculus or hydroureteronephrosis. There is a suprapubic catheter within the urinary bladder which is evacuated. There is prominent thic kening of the urinary bladder wall and fat stranding around the bladder, suggesting cystitis. There is extensive calcification but no aneurysm of the abdominal aorta. Prominent calcification at t he origins of the renal arteries and celiac and mesenteric arteries. No intraperitoneal or retroperit mary or pelvic mass lesion or adenopathy or ascites. Small fat-containing hernias, larger on the left. Small fat-containing umbilical hernia. Gastrostomy tube in gastric antrum. There is diverticulosis of the colon; no CT evidence of diverticu litis. No bowel obstruction or intraperitoneal free air. No suspicious osteolytic or osteoblastic lesions are noted. IMPRESSION: Suprapubic urinary bladder catheter Bladder wall thickening and fat stranding around the bladder, suggesting possible cystitis Small fat-containing inguinal hernias, larger on the left Mild colonic diverticulosis; no CT evidence of diverticulitis Hepatic cysts Reviewed, dictated and finalized at [facility]. Reviewed, dictated and finalized at [facility]. IMPRESSION: Suprapubic urinary bladder catheter Bladder wall thickening and fat stranding around the bladder, suggesting possib le cystitis Small fat-containing inguinal hernias, larger on the left Mild colonic diverticulosis; no CT evidence of diverticulitis Hepatic cysts
[2022-06-23 12:47] VITALS: BP 156/58; PULSE 75; RESP 20; TEMP 36.8
[2022-06-23 14:25] LABS: Basophils Percent Auto 0.4 % (0.2-1.2); Eosinophils Absolute Auto 0.3 K/mm3 (0-0.3); Eosinophils Percent Auto 2.9 % (0-4.4); Hemoglobin 12.5 g/dL (14.0-18.0); Immature Granulocyte Absolute 0.04 K/mm3 (0.00-0.031); Immature Granulocyte Percent A 0.4 % (0-0.5); Lymphocytes Percent Auto 11.1 % (18.3-44.2); Mean Corpuscular HGB Conc 32.1 g/dl (32-36); Mean Corpuscular Hemoglobin 31.5 pg (26-34); Mean Corpuscular Volume 98.2 fl (80-100); Monocytes Percent Auto 9.6 % (2.6-8.5); Neutrophils Absolute Auto 8.2 K/mm3 (1.3-6.7); Neutrophils Percent Auto 75.6 % (45.5-73.1); Platelet Count Result 269 k/mm3 (150-375); Red Blood Count 3.97 M/mm3 (4.6-6.20); Red Cell Distribution Width 13.8 % (11.5-14.5); White Blood Count 10.8 K/mm3 (4.5-10.0)
[2022-06-23 14:32] LABS: INR 1.1; Prothrombin Time 13.4 Seconds (11.1-14.7)
[2022-06-23 14:34] LABS: Alanine Aminotransferase 24 U/L (6-50); Albumin Level 3.7 g/dL (3.5-5.1); Alkaline Phosphatase 77 U/L (38-126); Anion Gap 6 mmol/L (8-16); Aspartate Amino Transferase 25 U/L (17-59); Bilirubin,Total 0.3 mg/dL (0.2-1.3); Blood Urea Nitrogen 26 mg/dL (9-20); Calcium 9.9 mg/dL (8.4-10.2); Carbon Dioxide 33 mmol/L (22-30); Chloride 101 mmol/L (98-107); Estimated CRCL calculation 90 ml/min; Estimated Glomerular Filt Rate > 60; Glucose 117 mg/dL (65-110); Potassium 3.8 mmol/L (3.4-5.0); Sodium 140 mmol/L (137-145)
[2022-06-23 16:12] VITALS: BP 127/56; PULSE 78; RESP 18; O2SAT 99
[2022-06-23 16:23] LABS: Add Urine Microscopic? YES; Appearance Urine Turbid (Clear); Bilirubin Urine 1+ (Negative); Blood Urine 3+ (Negative); Color Urine Red (Yellow); Glucose Urine UA Negative (Negative); Ketones Urine Negative (Negative); Leukocyte Esterase Ur 3+ LEU/UL (Negative); Nitrate Urine Negative (Negative); Protein Urine 3+ mg/dL (Negative); Urobilinogen Urine 0.2 mg/dL (<2.0)
[2022-06-23 16:40] LABS: Amorphous Sediment Urine Few; Bacteria Urine Trace /hpf; RBC Urine >75 /hpf (0-2); WBC Clumps Urine Present /HPF; WBC Urine >75 /hpf
--- NOTE | 2022-06-23 18:19 | ED.GENADULT ---
HPI - General Adult General Chief complaint: Urogenital-Male Stated complaint: hematuria Time Seen by Provider: 06/23/22 12:43 Source: RN notes reviewed History of Present Illness HPI narrative: Patient presents emergency department from home via EMS for hematuria. 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 Patient is catheter is less she is presently 6 weeks ago per family as well as patient was on Levaquin approximately 2 weeks ago for UTI. Patient is nonverbal at baseline he has been having no fevers or chills no nausea or vomiting per family Related Data Home Medications Medication Instructions Recorded Confirmed leuprolide (3 month) 22.5 mg (3 22.5 mg subcut [id number] 08/19/19 02/25/22 month) subcutaneous syringe (Eligard) abiraterone 500 mg tablet (Zytiga) 1,000 mg PO QAM 08/24/19 02/25/22 mirabegron 25 mg tablet,extended 25 mg PO DAILY 11/27/21 02/25/22 release 24 hr (Myrbetriq) hydrochlorothiazide 25 mg tablet 25 mg PO DAILY 01/06/22 02/25/22 levetiracetam 1,000 mg tablet 1,500 mg PO BID 02/10/22 02/25/22 prednisone 5 mg tablet 5 mg PO DAILY 02/10/22 02/25/22 enoxaparin 60 mg/0.6 mL 60 mg subcut Q12H 02/25/22 02/25/22 subcutaneous syringe Allergies Allergy/AdvReac Type Severity Reaction Status Date / Time No Known Allergies Allergy Verified 03/11/22 17:02 Review of Systems Review of Systems: ROS unobtainable: Yes unobtainable due to medical condition (Unable to obtain past medical history as the patient is nonverbal at [facility]) [facility] Past Medical History Medical History Chronic anticoagulation Depression Environmental allergies Essential (primary) hypertension GERD (gastroesophageal reflux disease) History of colon polyps History of COVID-19 (~09/2021) Prediabetes Prostate cancer prostatectomy 2011 Surgical History Surgical History History of appendectomy 1950s History of radical prostatectomy 2011 History of vasectomy Hx of cystoscopy 12/23 - left ureteroscopy for stone extraction 04/24: Urethral stricture dilatation Family History Family History Other Diabetes mellitus Family history of coronary artery disease Hypertension Malignant neoplasm of prostate Social History Social History Smoking status: Never smoker Second hand tobacco smoke exposure: No Alcohol intake: never Alcohol use details: SOCIAL IN DISTANCE PAST Substance use: never Substance use type: does not use Additional living arrangements comments: , SON Gender identity (if verbalized by the patient): Male Spiritual care concerns: No Exam Narrative: APPEARANCE: No acute distress, nontoxic, resting in bed EYES: EOMI HEENT: Normocephalic, atraumatic, OMM RESPIRATORY: No respiratory distress Clear to auscultation bilaterally with no rhonchi wheezing or rales. CARDIOVASCULAR: Regular rate and rhythm without murmurs rubs or gallops. ABDOMINAL: Soft, nontender, nondistended, no rebound or guarding , PEG tube present in left upper abdomen review the catheter present draining yellow urine with small amount of blood clots MUSCULOSKELETAl: Moves all extremities. No clubbing, cyanosis or edema. NEURO: Awake and alert. Following commands, speech normal, no focal deficits SKIN:: Warm, dry. No rashes lesions or abrasions PSYCHIATRIC: Normal affect/mood, Course Course Emergency Course: Procedure note, suprapubic catheter was replaced by myself. The patient's previous catheter had the balloon deflated and was removed and a new Izquierdo catheter was placed by myself patient tolerated the procedure well there was good urine o
[2022-06-23 19:02] VITALS: BP 155/64; PULSE 78; RESP 18; O2SAT 99
--- NOTE | 2022-06-23 19:15 | PC.NURSE ---
Assumed care of pt at this time. Pt awaiting EMS transport back to home residence. Pt and family updated on POC.
== END 2022-06-23 20:19 | disposition home or self-care (01) ==
PROVIDERS: Emergency Provider Emergency Medicine; PCP Family Medicine
DX: N39.0 Urinary tract infection, site not specified (principal); I10 Essential (primary) hypertension; R73.03 Prediabetes; K21.9 Gastro-esophageal reflux disease without esophagitis; Z86.73 Personal history of transient ischemic attack (TIA), and cerebral infarction without residual deficits; Z85.46 Personal history of malignant neoplasm of prostate; Z86.16 Personal history of COVID-19; Z86.010 Personal history of colon polyps; Z90.79 Acquired absence of other genital organ(s); K40.20 Bilateral inguinal hernia, without obstruction or gangrene, not specified as recurrent; K57.90 Diverticulosis of intestine, part unspecified, without perforation or abscess without bleeding; K76.89 Other specified diseases of liver; Z79.01 Long term (current) use of anticoagulants
CPT/HCPCS: 36415; 51705; 74176; 80053; 81001; 85025; 85610; 85730; 87077; 87086; 87186; 96365; 99284; J1956

== ENCOUNTER 2022-06-24 22:48 | Emergency (ER) | payer MEDICARE, SELFPAY ==
[2022-06-24 22:51] VITALS: BP 133/48; PULSE 79; RESP 20; TEMP 36.8; O2SAT 97
--- NOTE | 2022-06-24 23:29 | ED.MALEGU ---
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 Reportedly had this changed at our facility yesterday. They went to change the bandage today. Noted some purulent drainage to the area which prompted him to bring her back in for evaluation. He has not had any fevers and does not seem to be in any pain. He is currently on Levaquin for UTI found yesterday. Is supposed to be following up with urology outpatient. Related Data Home Medications Medication Instructions Recorded Confirmed leuprolide (3 month) 22.5 mg (3 22.5 mg subcut [id number] 08/19/19 02/25/22 month) subcutaneous syringe (Eligard) abiraterone 500 mg tablet (Zytiga) 1,000 mg PO QAM 08/24/19 02/25/22 mirabegron 25 mg tablet,extended 25 mg PO DAILY 11/27/21 02/25/22 release 24 hr (Myrbetriq) hydrochlorothiazide 25 mg tablet 25 mg PO DAILY 01/06/22 02/25/22 levetiracetam 1,000 mg tablet 1,500 mg PO BID 02/10/22 02/25/22 prednisone 5 mg tablet 5 mg PO DAILY 02/10/22 02/25/22 enoxaparin 60 mg/0.6 mL 60 mg subcut Q12H 02/25/22 02/25/22 subcutaneous syringe Allergies Allergy/AdvReac Type Severity Reaction Status Date / Time No Known Allergies Allergy Verified 06/24/22 22:57 Review of Systems Review of Systems: ROS unobtainable: Yes unobtainable due to medical condition PMFSH Past Medical History Medical History Chronic anticoagulation Depression Environmental allergies Essential (primary) hypertension GERD (gastroesophageal reflux disease) History of colon polyps History of COVID-19 (~09/2021) Prediabetes Prostate cancer prostatectomy 2011 Surgical History Surgical History History of appendectomy 1950s History of radical prostatectomy 2011 History of vasectomy Hx of cystoscopy 12/23 - left ureteroscopy for stone extraction 04/24: Urethral stricture dilatation Family History Family History Other Diabetes mellitus Family history of coronary artery disease Hypertension Malignant neoplasm of prostate Social History Social History Smoking status: Never smoker Second hand tobacco smoke exposure: No Alcohol intake: never Alcohol use details: SOCIAL IN DISTANCE PAST Substance use: never Substance use type: does not use Additional living arrangements comments: , SON Gender identity (if verbalized by the patient): Male Spiritual care concerns: No Exam Narrative: GENERAL: Elderly, well-nourished, and in no acute distress. HEAD: Normocephalic, atraumatic. EYES: EOMI. CHEST: Clear to auscultation. No respiratory distress. No wheezes rales or rhonchi HEART: Regular rate and rhythm. No murmur heard. Normal peripheral pulses. ABDOMEN: Soft, nontender, nondistended, normal active bowel sounds. Suprapubic catheter with small amount of purulent drainage around the catheter site. There is no extending erythema of the area or warmth EXTREMITIES: Normal range of motion. No edema. SKIN: Warm, dry, no rash. NEURO: No focal deficits. Alert and oriented x3. PSYCH: Normal mood and affect Course Vital Signs Vital signs: Vital Signs Temperature 98.3 F 06/24/22 22:51 Pulse Rate 79 06/24/22 22:51 Respiratory Rate 20 06/24/22 22:51 Blood Pressure 133/48 L 06/24/22 22:51 Pulse Oximetry 97 06/24/22 22:51 Oxygen Delivery Room Air 06/24/22 22:51 Temperature 98.3 F 06/24/22 22:51 Pulse Rate 77 06/25/22 03:31
[2022-06-24 23:31] VITALS: BP 115/65; PULSE 72; RESP 23
[2022-06-25 00:09] LABS: Basophils Percent Auto 0.4 % (0.2-1.2); Eosinophils Absolute Auto 0.1 K/mm3 (0-0.3); Eosinophils Percent Auto 1.4 % (0-4.4); Hematocrit 38.4 % (42.0-52.0); Hemoglobin 11.9 g/dL (14.0-18.0); Immature Granulocyte Absolute 0.02 K/mm3 (0.00-0.031); Immature Granulocyte Percent A 0.2 % (0-0.5); Lymphocytes Absolute Auto 1.05 K/mm3 (0.9-3.2); Lymphocytes Percent Auto 11.4 % (18.3-44.2); Mean Corpuscular Hemoglobin 31.8 pg (26-34); Mean Corpuscular Volume 102.7 fl (80-100); Mean Platelet Volume 10.8 fl (7.4-10.4); Monocytes Absolute Auto 0.9 K/mm3 (0.1-0.6); Monocytes Percent Auto 9.6 % (2.6-8.5); Neutrophils Absolute Auto 7.1 K/mm3 (1.3-6.7); Platelet Count Result 247 k/mm3 (150-375); Red Blood Count 3.74 M/mm3 (4.6-6.20); White Blood Count 9.3 K/mm3 (4.5-10.0)
[2022-06-25 00:20] LABS: Anion Gap 11 mmol/L (8-16); Blood Urea Nitrogen 34 mg/dL (9-20); CRP 4.6 mg/dL (<1.0); Calcium 9.4 mg/dL (8.4-10.2); Carbon Dioxide 35 mmol/L (22-30); Chloride 97 mmol/L (98-107); Estimated Glomerular Filt Rate > 60; Glucose 146 mg/dL (65-110); Potassium 3.9 mmol/L (3.4-5.0); Sodium 143 mmol/L (137-145)
--- NOTE | 2022-06-25 01:26 | PC.NURSE ---
called [facility] to request transport. ETA [id number]
--- NOTE | 2022-06-25 02:41 | PC.NURSE ---
@0230 called [facility] for ETA update. ETA [id number] @0238 called [facility] to request transport. declined @0242 called [facility] to request transport. not available
--- NOTE | 2022-06-25 03:20 | PC.NURSE ---
[facility] here
[2022-06-25 03:31] VITALS: BP 128/58; PULSE 77; RESP 16; O2SAT 96
== END 2022-06-25 03:32 | disposition home or self-care (01) ==
PROVIDERS: Physician Assistant; Emergency Provider General Practice; PCP Family Medicine
DX: N39.0 Urinary tract infection, site not specified (principal); Z96.0 Presence of urogenital implants; I10 Essential (primary) hypertension; K21.9 Gastro-esophageal reflux disease without esophagitis; R73.03 Prediabetes; Z86.16 Personal history of COVID-19; Z85.46 Personal history of malignant neoplasm of prostate; Z90.79 Acquired absence of other genital organ(s); Z79.01 Long term (current) use of anticoagulants
CPT/HCPCS: 36415; 80048; 85025; 86140; 87070; 87205; 99283

== ENCOUNTER 2022-07-07 19:11 | Inpatient (IN) | payer MEDICARE, SELFPAY ==
--- NOTE | ~2022-07-07 | CT_ITS ---
EXAMINATION: CT brain wo con DATE: 07/07/2022 20:17 INDICATION: AMS . TECHNIQUE: Computed tomography (CT) of the head was performed without intravenous contrast. The mA wa s adjusted according to patient size. Iterative reconstruction technique was employed. The dose-lengt h product was 605.33 mGy-cm. COMPARISON: 03/05/2022 FINDINGS: No acute intracranial hemorrhage or extra-axial fluid collection. No hydrocephalus, mass, or herniation. No acute ischemic infarct. Unremarkable dural venous sinus attenuation. No acute osseous abnormality. Small sphenoid air-fluid level. Right mastoid and middle ear fluid. The remaining aerated spaces are clear. Mild atrophy and chronic white matter change. Right posterior frontal encephalomalacia with focal are as of laminar necrosis. Atherosclerotic intracranial calcification. IMPRESSION: No acute intracranial process. Possible right otomastoiditis. Sphenoid air-fluid level, as can be see n with acute sinusitis. Reviewed, dictated and finalized at [facility]. IMPRESSION: No acute intracranial process. Possible right otomastoiditis. Sphenoid air-flui d level, as can be seen with acute sinusitis.
--- NOTE | ~2022-07-07 | CT_ITS ---
EXAMINATION: CT abdomen pelvis w con DATE: 07/07/2022 20:26 INDICATION: lower abd pain TECHNIQUE: Computed tomography (CT) of the abdomen and pelvis was performed with 100 mL Omnipaque-350 intravenous contrast. Automated exposure control and iterative reconstruction technique were employe d. The dose-length product was 447.48 mGy-cm. COMPARISON: 06/23/2022. FINDINGS: Lower thorax: Coronary artery calcification. Bilateral dependent atelectasis/scar. Liver: Left lobe cyst. Left lobe lesion that is too small to characterize. Biliary/Gallbladder: Gallbladder is normal. No bile duct dilation. Pancreas: Mild atrophy Spleen: Normal. Adrenals:No mass. Kidneys: Bilateral hypodensities that are too small to characterize. Punctate nonobstructive right mi dpole calculus. No hydronephrosis. GI tract: PEG tube in good position. No small or large bowel dilation. Appendix likely surgically abs ent. Mild diverticulosis without diverticulitis. Mesentery/Peritoneum: No ascites, mass, or free air. Retroperitoneum: No mass. Atherosclerotic abdominal aortic and/or arterial calcifications. Pelvis: Suprapubic catheter. Bladder wall thickening and inflammation. Possible prior prostatectomy. Question of a undescended testicle on the right. Soft Tissues: Soft tissues and body wall unremarkable. Bones: No acute osseous finding. IMPRESSION: Cystitis. Otherwise no acute abdominopelvic process detected. Chronic and incidental findings detaile d above. Reviewed, dictated and finalized at location [facility]. IMPRESSION: Cystitis. Otherwise no acute abdominopelvic process detected. Chronic and incid ental findings detailed above.
--- NOTE | ~2022-07-07 | MR_ITS ---
EXAMINATION: MR brain/brain stem wo con DATE: 07/12/2022 12:19 INDICATION: possible CVA TECHNIQUE: Magnetic resonance imaging (MRI) of the brain and brainstem was performed without intraven ous contrast. Sequences included sagittal and axial T1-weighted SE, axial diffusion-weighted FS EPI A SSET, axial T2*-weighted GRE, axial T2-weighted FLAIR Propeller, and axial T2-weighted Propeller. Pos tcontrast axial and coronal T1-weighted SE was obtained. Apparent diffusion coefficient (ADC) maps we re created. COMPARISON: CT brain 07/07/2022. FINDINGS: No abnormal restricted diffusion to suggest acute ischemic infarct. Chronic focal areas of parenchyma l hemorrhage involving several right peripheral frontal gyri and a left medial frontal gyrus. Scatter ed areas of linear gyral susceptibility in the right frontal lobe, likely representing laminar necros is. Scattered foci of susceptibility in the bilateral temporal and bilateral frontal sulci, likely re presenting old subarachnoid blood. Posterior right frontal encephalomalacia. Mild scattered areas of white matter hyperintensity likely related to chronic white matter change. Mild generalized parenchym al volume loss. Right mastoid fluid. Flow voids are preserved. Bilateral lens replacements. IMPRESSION: No acute infarct. No acute intracranial hemorrhage. Chronic ischemic and hemorrhagic findings detaile d above. Right mastoid effusion. Reviewed, dictated and finalized at location [facility]. IMPRESSION: No acute infarct. No acute intracranial hemorrhage. Chronic ischemic and hemorr hagic findings detailed above. Right mastoid effusion.
[2022-07-07 19:13] VITALS: BP 157/60; PULSE 87; RESP 18; TEMP 36.8; O2SAT 100
--- NOTE | 2022-07-07 19:24 | ECG_ITS ---
Measurements Intervals [place] Rate: 87 P: 72 GA: 150 QRS: 3 QRSD: 83 T: 53 QT: 363 QTc: 437 Interpretive Statements SINUS RHYTHM COMPARED TO ECG 03/11/2022 15:01:49 SINUS RHYTHM NOW PRESENT Electronically Signed On 07-08-2022 17:25:37 CDT by Tyrell Pérez M.D.
[2022-07-07 19:39] VITALS: PULSE 86
--- NOTE | 2022-07-07 19:42 | ED.GENADULT ---
HPI - General Adult General Chief complaint: Altered Mental Status Stated complaint: AMS Time Seen by Provider: 07/07/22 19:19 History of Present Illness HPI narrative: 72-year-old male with history of seizures, MS, CVA and suprapubic Izquierdo presented emerged department for evaluation of altered mental status and abdominal pain. Family states patient had recently been treated for urine tract infection and had been started on Levaquin. Family states after completing Levaquin a few days ago he began having worsening mental status. Family states today that the patient became nonverbal. Prior to becoming nonverbal patient was complaining of lower abdominal pain. Family does state patient has a history of frequent urinary tract infections. Related Data Home Medications Medication Instructions Recorded Confirmed levetiracetam 1,000 mg tablet 1,500 mg PO BID 02/10/22 07/07/22 Allergies Allergy/AdvReac Type Severity Reaction Status Date / Time No Known Allergies Allergy Verified 06/24/22 22:57 Review of Systems Review of Systems: ROS unobtainable: Yes unobtainable due to mental status PMFSH Past Medical History Medical History Chronic anticoagulation Depression Environmental allergies Essential (primary) hypertension GERD (gastroesophageal reflux disease) History of colon polyps History of COVID-19 (~09/2021) Prediabetes Prostate cancer prostatectomy 2011 Surgical History Surgical History History of appendectomy 1950s History of radical prostatectomy 2011 History of vasectomy Hx of cystoscopy 12/23 - left ureteroscopy for stone extraction 04/24: Urethral stricture dilatation Family History Family History Other Diabetes mellitus Family history of coronary artery disease Hypertension Malignant neoplasm of prostate Social History Social History Smoking status: Never smoker Second hand tobacco smoke exposure: No Alcohol intake: never Alcohol use details: SOCIAL IN DISTANCE PAST Substance use: never Substance use type: does not use Additional living arrangements comments: , SON Gender identity (if verbalized by the patient): Male Spiritual care concerns: No Exam Narrative: APPEARANCE: Ill-appearing HEAD: normocephalic, atraumatic. EYES: PERRLA/EOMI, conjunctivae clear. NOSE: Normal no drainage NECK: Supple. No adenopathy, no masses. RESPIRATORY: Airway patent, respirations nonlabored. Clear to auscultation bilaterally, no rales, rhonchi, wheezing. CARDIOVASCULAR: Regular rate and rhythm without murmurs rubs or gallops. ABDOMINAL: Soft, nontender, nondistended, normal bowel sounds. Suprapubic cath site well-appearing. MUSCULOSKELETAL: Moves all extremities. Strength/ROM intact, No edema, No calf tenderness. NEURO: Alert. Cranial nerves II through XII intact. Alert but nonverbal SKIN: Warm, dry. Normal Color Course Course Emergency Course: UA is consistent with a urinary tract infection. Patient's recent culture on 06/25/2022 showed Pseudomonas. This was sensitive to Cipro. Patient was started on Cipro in the ED. Case was discussed with hospitalist and patient was accepted for admission Vital Signs Vital signs: Vital Signs Temperature 98.3 F 07/07/22 19:13 Pulse Rate 87 07/07/22 19:13 Respiratory Rate 18 07/07/22 19:13 Blood Pressure 157/60 H 07/07/22 19:13 Pulse Oximetry 100 07/07/22 19:13 Oxygen Delivery Room Air 07/07/22 19:13 Temperature 98.1 F 07/08/22 00:07 Pulse Rate 85 07/08/22 00:07 Respiratory Rate 16 07/08/22 00:07 Blood Pressure 135/50 L 07/08/22 00:07 Pulse Oximetry 97 07/08/22 00:07 Oxygen Delivery Room Air 07/07/22 23:34 Medical Decision Making Vital Signs Vital Signs: Vital
[2022-07-07 19:44] LABS: Basophils Absolute Auto 0.1 K/mm3 (0.0-0.1); Basophils Percent Auto 0.4 % (0.2-1.2); Eosinophils Absolute Auto 0.2 K/mm3 (0-0.3); Eosinophils Percent Auto 1.6 % (0-4.4); Hematocrit 43.1 % (42.0-52.0); Hemoglobin 14.3 g/dL (14.0-18.0); Immature Granulocyte Absolute 0.03 K/mm3 (0.00-0.031); Immature Granulocyte Percent A 0.2 % (0-0.5); Lymphocytes Absolute Auto 1.47 K/mm3 (0.9-3.2); Lymphocytes Percent Auto 11.8 % (18.3-44.2); Mean Corpuscular HGB Conc 33.2 g/dl (32-36); Mean Corpuscular Hemoglobin 32.1 pg (26-34); Mean Corpuscular Volume 96.6 fl (80-100); Mean Platelet Volume 10.4 fl (7.4-10.4); Monocytes Percent Auto 7.6 % (2.6-8.5); Neutrophils Absolute Auto 9.8 K/mm3 (1.3-6.7); Neutrophils Percent Auto 78.4 % (45.5-73.1); Platelet Count Result 251 k/mm3 (150-375); Red Blood Count 4.46 M/mm3 (4.6-6.20); Red Cell Distribution Width 13.5 % (11.5-14.5); White Blood Count 12.5 K/mm3 (4.5-10.0)
[2022-07-07 19:48] LABS: Appearance Urine Cloudy (Clear); Bilirubin Urine 1+ (Negative); Blood Urine 3+ (Negative); Color Urine Amber (Yellow); Glucose Urine UA Negative (Negative); Ketones Urine Negative (Negative); Leukocyte Esterase Ur 3+ LEU/UL (Negative); Nitrate Urine Positive (Negative); Protein Urine 3+ mg/dL (Negative); Urobilinogen Urine 0.2 mg/dL (<2.0)
[2022-07-07 19:55] LABS: Bacteria Urine Trace /hpf; RBC Urine >75 /hpf (0-2); WBC Clumps Urine Present /HPF; WBC Urine >75 /hpf
[2022-07-07 19:57] LABS: Alanine Aminotransferase 22 U/L (6-50); Alkaline Phosphatase 95 U/L (38-126); Anion Gap 10 mmol/L (8-16); Aspartate Amino Transferase 27 U/L (17-59); Bilirubin,Total 0.3 mg/dL (0.2-1.3); Blood Urea Nitrogen 27 mg/dL (9-20); Calcium 10.2 mg/dL (8.4-10.2); Carbon Dioxide 33 mmol/L (22-30); Chloride 98 mmol/L (98-107); Estimated Glomerular Filt Rate > 60; Glucose 110 mg/dL (65-110); Potassium 4.5 mmol/L (3.4-5.0); Prothrombin Time 12.6 Seconds (11.1-14.7); Sodium 141 mmol/L (137-145)
[2022-07-07 19:58] LABS: Partial Thromboplastin Time 27.8 SECONDS (22.3-36.8)
[2022-07-07] MEDS: CIPROFLOXACIN 400 MG/D5W 200ML 200 ML 200 MG IVPB (20:32)
[2022-07-07 20:36] LABS: Add Urine Microscopic? YES
[2022-07-07] MEDS: SODIUM CHLORIDE 0.9% IV 1,000 ML 75 ML IV CONT (23:00)
--- NOTE | 2022-07-07 23:27 | ADMGEN ---
This patient, Jones Gutierrez, was admitted to Medical Room 345-. Patient/family oriented to hospital policies and general routines including ID bracelet, bed and alarms, visiting hours, pain management, procedures, bathroom and other care routines, personal items, smoking policy, room service/diet, and visiting hours. Information on how to activate the Rapid Response Team has been discussed. Patient/Family are encouraged to report perceived risks to care and to ask questions if they do not understand what they are told or what they should do.
[2022-07-08 00:07] VITALS: BP 135/50; PULSE 85; RESP 16; TEMP 36.7; O2SAT 97; BMI 19.9
[2022-07-08 04:54] VITALS: BP 157/62; PULSE 92; RESP 16; TEMP 36.6; O2SAT 97
[2022-07-08] MEDS: levETIRAcetam ORAL SOL 500 MG/5 ML UDC 1500 MG FEED TUBE ×2 (08:29→21:09)
[2022-07-08] MEDS: CIPROFLOXACIN 400 MG/D5W 200ML 200 ML 200 MG IVPB ×2 (08:29→20:38)
[2022-07-08 11:09] VITALS: BMI 19.9
[2022-07-08 11:18] VITALS: BMI 19.9
--- NOTE | 2022-07-08 13:46 | PM.IMHP ---
H&P: HPI History of Present Illness Date/Time: 07/08/22 13:46 Chief Complaint: Alter mental status and abdominal pain Narrative: ED-HPI narrative: 72-year-old male with history of seizures, NM, CVA and suprapubic Izquierdo presented emerged department for evaluation of altered mental status and abdominal pain.? Family states patient had recently been treated for urine tract infection and had been started on Levaquin.? Family states after completing Levaquin a few days ago he began having worsening mental status.? Family states today that the patient became nonverbal.? Prior to becoming nonverbal patient was complaining of lower abdominal pain.? Family does state patient has a history of frequent urinary tract infections. Patient remains nonverbal and unable to provide any ROS or history: patient has chronic indwelling nephrostomy tube and has not been replaced sometime and with history of recurrent UTI and now with abdominal pain, will consult urologist to replace the tube, Ct scan of the head did not show any acute injury rather suggesting acute sinusitis patient is on Cipro, will add ceftriaxone and flagyl, Ct scan of abdomen also suggest cystitis, will follow up on urine and blood culture identification and sensitivity, once more clinically stable will have PT/OT evaluate the patient. patient admitted as observation status Review of Systems Review of Systems: ROS unobtainable: Yes unobtainable due to medical condition PMFSH Past Medical History Medical History Chronic anticoagulation Depression Environmental allergies Essential (primary) hypertension GERD (gastroesophageal reflux disease) History of colon polyps History of COVID-19 (~09/2021) Prediabetes Prostate cancer prostatectomy 2011 Surgical History Surgical History History of appendectomy 1950s History of radical prostatectomy 2011 History of vasectomy Hx of cystoscopy 12/23 - left ureteroscopy for stone extraction 04/24: Urethral stricture dilatation Family History Family History Other Diabetes mellitus Family history of coronary artery disease Hypertension Malignant neoplasm of prostate Social History Social History Smoking status: Never smoker Second hand tobacco smoke exposure: No Alcohol intake: never Alcohol use details: SOCIAL IN DISTANCE PAST Substance use: never Substance use type: does not use Additional living arrangements comments: , SON Gender identity (if verbalized by the patient): Male Spiritual care concerns: No Meds Home Medications and Allergies Home Medications Medication Instructions Recorded Confirmed Type levetiracetam 1,000 mg tablet 1,500 mg PO BID 02/10/22 07/07/22 History Allergies Allergy/AdvReac Type Severity Reaction Status Date / Time No Known Allergies Allergy Verified 06/24/22 22:57 Vital Signs Vital Signs - 24 hr 07/07/22 19:13 07/07/22 19:39 07/07/22 23:34 Temperature 98.3 F Pulse Rate 87 86 Respiratory Rate 18 Blood Pressure 157/60 H Pulse Oximetry 100 Oxygen Delivery Room Air Room Air 07/08/22 00:07 07/08/22 04:54 07/08/22 08:00 Temperature 98.1 F 97.9 F Pulse Rate 85 92 Respiratory Rate 16 16 Blood Pressure 135/50 L 157/62 H Pulse Oximetry 97 97 Oxygen Delivery Room Air Exam Narrative: Patient is comfortable, NAD HEENT: eyes are clear and none icteric LUNGS: normal respiratory effort ABD: not distended, G-tube Lower extremities: no edema SKIN: nonjaundiced Neuro: nonverbal somnolent. H&P: Results Labs Labs: Short CBC 07/07/22 Range/Units 19:29 WBC 12.5 H (4.5-10.0) K/mm3 Hgb 14.3 (14.0-18.0) g/dL Hct 43.1 (42.0-52.0) % Plt Count 251 (150-375) k/mm3 [facility]
[2022-07-08 14:00] VITALS: BP 150/79; PULSE 87; RESP 18; TEMP 36.8; O2SAT 98
--- NOTE | 2022-07-08 15:17 | WPDURCON ---
Assessment and Plan Assessment and plan (1) Acute UTI: Code(s): N39.0 - Urinary tract infection, site not specified Status: Acute Assessment and Plan: Continue IV antibiotics, tailor to culture results, cutlure is pending. (2) AMS (altered mental status): Qualifiers: Altered mental status type: disorientation Qualified Code(s): R41.0 - Disorientation, unspecified Code(s): R41.82 - Altered mental status, unspecified Status: Acute (3) Encounter for care or replacement of suprapubic tube: Code(s): Z43.5 - Encounter for attention to cystostomy Status: Acute Assessment and Plan: The patient's catheter is clogged today and was replaced without difficulty. When the old one was removed without difficulty, but a large clot was noted in the SP tube insertion site that flowed out with urine and was blocking the hole, as well as quite a bit of sediment blocking the tip of the catheter. I will suggest that the family irrigate his SP tube daily with 1/3 cup white vinegar mixed with 2/3 cup distilled water in a 60cc catheter tip syringe until urine is clear of sediment, to prevent infection and clogging of catheter. They can mix as much of the vinegar/water as needed to clear the bladder. This will be an ongoing problem for someone with an SP tube. I will also suggest antibiotic prophylaxis Keflex 250mg daily after treatment of this UTI to prevent further infections. He will need his SP tube changed at least monthly if not every 2-3 weeks to prevent clogging and infection. I replaced his SP tube with a 16fr straight catheter without difficulty, >250cc of clear yellow urine on return, no need to irrigate as the urine was able to flow easily to gravity after the change. Urology Consult Note HPI Date Seen: 07/08/22 Time Seen: 12:40 Requesting Physician: Sally Hyde DO Primary Care Provider: Jamee Moreau MD Consult Narrative Reason for consult: Clogged SP tube/Chronic UTI Narrative: Jones Gutierrez is a 72 year old male who presented to the ER on 07/07/22 d/t altered mental status changes and abdominal pain. He is leaking urine from his penis and has an SP tube in place. He was recently in the ER here on 06/23/22 and had his SP tube changed d/t clogging and was given Levaquin for a UTI, then returned on 06/24/22 to the ER as well for catheter draining issues. The patient has a normal creatinine of 0.50, UA that is nitrate positive, CT shows punctate non obstructive right mid pole stone without hydronephrosis, an s/p tube in place and bladder wall thickening/inflammation. He had his SP tube placed in May, however his family is unsure where or who placed it. He is a patient of ours and was seen as recent as 02/19/22 for gross hematuria in the office. We did a urine culture which was negative, ordered a CT scan and cysto, which he didn't return for and he did not have an SP tube at that time. He is non-verbal and unable to give medical history. I obtained his medical history from his nurse, family and chart. They state his catheter clogs often and is changed at home monthly and more often d/t clogging. Review of Systems Review of Systems: ROS unobtainable: Yes unobtainable due to mental status PMFSH Past Medical History Medical History Chronic anticoagulation Depression Environmental allergies Essential (primary) hypertension GERD (gastroesophageal reflux disease) History of colon polyps History of COVID-19 (~09/2021) Prediabetes Prostate cancer prostatectomy 2011 Surgical History Surgical History History of appendectomy 1950s History of radical prostatectomy 2011 History of vasectomy Hx of cystoscopy 12/23 - left ureteroscopy for stone extraction 04/24: Urethral stricture dilatation Family History Family History (Reviewed 07/08/22 @ 15:23 by Darrick
[2022-07-08] MEDS: cefTRIAXone 2 GM in SODIUM CHLORIDE 0.9% IV 100 ML 200 ML IVPB (17:13)
[2022-07-08] MEDS: SODIUM CHLORIDE 0.9% IV 1,000 ML 75 ML IV CONT (17:15)
[2022-07-08] MEDS: metroNIDAZOLE 250 MG TABLET 500 MG FEED TUBE (21:09)
[2022-07-08 22:00] VITALS: BP 140/51; PULSE 81; RESP 16; TEMP 36.8; O2SAT 97
[2022-07-09] MEDS: SODIUM CHLORIDE 0.9% IV 1,000 ML 75 ML IV CONT ×2 (00:10→14:26)
[2022-07-09] MEDS: metroNIDAZOLE 250 MG TABLET 500 MG FEED TUBE (05:16)
[2022-07-09 05:35] LABS: Hematocrit 36.9 % (42.0-52.0); Hemoglobin 11.8 g/dL (14.0-18.0); Mean Corpuscular Hemoglobin 30.6 pg (26-34); Mean Corpuscular Volume 95.8 fl (80-100); Mean Platelet Volume 10.6 fl (7.4-10.4); Platelet Count Result 242 k/mm3 (150-375); Red Blood Count 3.85 M/mm3 (4.6-6.20); Red Cell Distribution Width 13.5 % (11.5-14.5); White Blood Count 9.3 K/mm3 (4.5-10.0)
[2022-07-09 05:43] LABS: Anion Gap 7 mmol/L (8-16); Blood Urea Nitrogen 25 mg/dL (9-20); Calcium 8.9 mg/dL (8.4-10.2); Carbon Dioxide 29 mmol/L (22-30); Chloride 102 mmol/L (98-107); Estimated CRCL calculation 91 ml/min; Estimated Glomerular Filt Rate > 60; Glucose 134 mg/dL (65-110); Potassium 3.9 mmol/L (3.4-5.0); Sodium 138 mmol/L (137-145)
[2022-07-09 05:45] VITALS: BP 150/54; PULSE 78; RESP 18; TEMP 36.8; O2SAT 98
[2022-07-09] MEDS: CIPROFLOXACIN 400 MG/D5W 200ML 200 ML 200 MG IVPB (08:15)
[2022-07-09] MEDS: ENOXAPARIN 40 MG/0.4 ML SYRINGE SUB-Q (08:16)
[2022-07-09] MEDS: levETIRAcetam ORAL SOL 500 MG/5 ML UDC 1500 MG FEED TUBE ×2 (08:16→21:29)
--- NOTE | 2022-07-09 11:42 | PM.IMPN ---
Progress Note: A&P Assessment and Plan (1) Acute UTI: Code(s): N39.0 - Urinary tract infection, site not specified Status: Acute (2) AMS (altered mental status): Qualifiers: Altered mental status type: disorientation Qualified Code(s): R41.0 - Disorientation, unspecified Code(s): R41.82 - Altered mental status, unspecified Status: Acute (3) Essential (primary) hypertension: Code(s): I10 - Essential (primary) hypertension Status: Acute (4) Memory deficit: Code(s): R41.3 - Other amnesia Status: Acute (5) Encounter for care or replacement of suprapubic tube: Code(s): Z43.5 - Encounter for attention to cystostomy Status: Acute (6) Acute sinusitis: Code(s): J01.90 - Acute sinusitis, unspecified Status: Acute Plan 72-year-old male with history of seizures, CT, CVA and suprapubic Izquierdo presented emerged department for evaluation of altered mental status and abdominal pain.? Family states patient had recently been treated for urine tract infection and had been started on Levaquin.? Family states after completing Levaquin a few days ago he began having worsening mental status.? Family states today that the patient became nonverbal.? Prior to becoming nonverbal patient was complaining of lower abdominal pain.? Family does state patient has a history of frequent urinary tract infections. 07/08/22 Patient remains nonverbal and unable to provide any ROS or history: patient has chronic indwelling nephrostomy tube and has not been replaced sometime and with history of recurrent UTI and now with abdominal pain, will consult urologist to replace the tube, Ct scan of the head did not show any acute injury rather suggesting acute sinusitis patient is on Cipro, will add ceftriaxone and flagyl, Ct scan of abdomen also suggest cystitis, will follow up on urine and blood culture identification and sensitivity, once more clinically stable will have PT/OT evaluate the patient. 07/09/22 change abx to cefepime to cover sinus and urine seen by Uro SP tube with a 16fr straight catheter without difficulty, >250cc of clear yellow urine on return; with the following recs: family to irrigate his SP tube daily with 1/3 cup white vinegar mixed with 2/3 cup distilled water in a 60cc catheter tip syringe until urine is clear of sediment, to prevent infection and clogging of catheter. They can mix as much of the vinegar/water as needed to clear the bladder. This will be an ongoing problem for someone with an SP tube. I will also suggest antibiotic prophylaxis Keflex 250mg daily after treatment of this UTI to prevent further infections. He will need his SP tube changed at least monthly if not every 2-3 weeks to prevent clogging and infection. monitor for improvement in mental status monitor VS daily labs Subjective Date/time seen: 07/09/22 11:42 nonverbal but does laugh when I joke with him son and at bedside Review of Systems Review of Systems: ROS unobtainable: Yes unobtainable due to medical condition Exam Narrative: GEN: comfortable, NAD HEENT: eyes are clear and none icteric EOMI LUNGS: normal respiratory effort ABD: not distended, G-tube w feed running Lower extremities: no edema SKIN: nonjaundiced Neuro: nonverbal alert Objective Data Vital Signs Vital Signs: Vital Signs - 24 hr 07/08/22 14:00 07/08/22 20:00 07/08/22 22:00 Temperature 98.2 F 98.3 F Pulse Rate 87 81 Respiratory Rate 18 16 Blood Pressure 150/79 H 140/51 L Pulse Oximetry 98 97 Oxygen Delivery Room Air 07/09/22 05:45 07/09/22 08:00 Temperature 98.3 F Pulse Rate 78 Respiratory Rate 18 Blood Pressure 150/54 H Pulse Oximetry 98 Oxygen Delivery Room Air Intake/Output Intake/Output: Intake & Output 07/06/22 07/07/22 07/08/22 07/09/22 23:59 23:59 23:59 23:59 Intake Total 200 1500 1670 Output Total 600 350 Balance 828 303 7383 Meds/Results Me
--- NOTE | 2022-07-09 12:52 | WPDUROPN2 ---
Progress Note: A&P Assessment and Plan (1) Encounter for care or replacement of suprapubic tube: Code(s): Z43.5 - Encounter for attention to cystostomy Status: Acute Assessment and Plan: Still unclear to who placed his SP tube, however it needs to be changed q monthly, beginning 08/08/22 since it was changed yesterday. Encourage family to do vinegar/water SP tube irrigations daily and PRN to prevent clogging and infections. (2) Acute UTI: Code(s): N39.0 - Urinary tract infection, site not specified Status: Acute Time Spent With Patient Time: Continue IV antibiotics and tailor to culture results. Culture is pending. Subjective Subjective Date/Time Seen: 07/09/22 12:52 SP tube changed yesterday without difficultly, previous SP tube was clogged with clot and debris. SP tube is draining well today and urine is kylah and clear in color. Patient remains non verbal but is alert. WBC has gone down to 9.3. I left an instruction sheet about acetic acid irrigations that can be done daily and PRN to prevent clogging of the catheter and infections at the bedside table for the family to take home. Review of Systems Review of Systems: ROS unobtainable: Yes unobtainable due to mental status Exam Const: General: cooperative Resp: Effort & Inspection: normal respiratory effort Cardio: Rate: regular rate GI: GI Palp: Yes Soft to palpation and No Tenderness to palpation present (GI) : General: Yes no CVA tenderness Urinary Catheter: Urinary Catheter: patent and draining and urine dark Extrem: Right lower extremity: no edema Left lower extremity: no edema Objective Data Vital Signs Vital Signs: Vital Signs - 24 hr 07/08/22 14:00 07/08/22 20:00 07/08/22 22:00 Temperature 98.2 F 98.3 F Pulse Rate 87 81 Respiratory Rate 18 16 Blood Pressure 150/79 H 140/51 L Pulse Oximetry 98 97 Oxygen Delivery Room Air 07/09/22 05:45 07/09/22 08:00 Temperature 98.3 F Pulse Rate 78 Respiratory Rate 18 Blood Pressure 150/54 H Pulse Oximetry 98 Oxygen Delivery Room Air Intake/Output Intake/Output: Intake & Output 07/06/22 07/07/22 07/08/22 07/09/22 23:59 23:59 23:59 23:59 Intake Total 200 1500 1670 Output Total 600 350 Balance 330 157 8039 Meds/Results Medications: Active Medications Generic Name Dose Route Start Last Admin Trade Name Gio PRN Reason Stop Dose Admin Enoxaparin Sodium 40 mg 07/09/22 09:00 07/09/22 08:16 Enoxaparin 40 Mg/0.4 Ml Syringe SUB-Q 40 mg DAILY ABEL Administration Sodium Chloride 1,000 mls @ 75 mls/hr 07/07/22 21:35 07/09/22 00:10 Normal Saline Iv IV CONT 75 mls/hr .[id number] ABEL Administration Cefepime HCl 2 gm in 50 mls @ 100 mls/hr 07/09/22 14:00 Maxipime 2 Gm/D5w 50 Ml IVPB Q8H ABEL Levetiracetam 1,500 mg 07/08/22 09:00 07/09/22 08:16 Levetiracetam Oral Tomeka 500 Mg/5 Ml Udc FEED TUBE 1,500 mg Q12HR ABEL Administration Radiology Results: ITS Impressions Head CT 07/07/22 20:22 IMPRESSION: No acute intracranial process. Possible right otomastoiditis. Sphenoid air-fluid level, as can be seen with acute sinusitis. Abdomen/Pelvis CT 07/07/22 20:31 IMPRESSION: Cystitis. Otherwise no acute abdominopelvic process detected. Chronic and incidental findings detailed above. Labs Labs: Laboratory Results - last 24 hr 07/09/22 07/09/22 05:12 05:12 WBC 9.3 RBC 3.85 L Hgb 11.8 L Hct 36.9 L MCV 95.8 MCH 30.6 MCHC 32.0 RDW 13.5 Plt Count 242 MPV 10.6 H Sodium 138 Potassium 3.9 Chloride 102 Carbon Dioxide 29 Anion Gap 7 L BUN 25 H Creatinine 0.50 L Estim Creat Clear Calc 91 Estimated GFR > 60 Glucose 134 H Calcium 8.9
[2022-07-09 14:00] VITALS: BP 150/60; PULSE 84; RESP 20; TEMP 37.2; O2SAT 97
[2022-07-09 17:10] VITALS: TEMP 36.8
[2022-07-09 22:53] VITALS: BP 127/83; PULSE 77; RESP 16; TEMP 36.8; O2SAT 96
[2022-07-10 05:13] VITALS: BP 162/55; PULSE 80; RESP 17; TEMP 37.2; O2SAT 98
[2022-07-10 05:21] LABS: Hematocrit 36.7 % (42.0-52.0); Hemoglobin 11.8 g/dL (14.0-18.0); Mean Corpuscular HGB Conc 32.2 g/dl (32-36); Mean Corpuscular Hemoglobin 31.3 pg (26-34); Mean Corpuscular Volume 97.3 fl (80-100); Mean Platelet Volume 10.7 fl (7.4-10.4); Platelet Count Result 217 k/mm3 (150-375); Red Blood Count 3.77 M/mm3 (4.6-6.20); Red Cell Distribution Width 13.4 % (11.5-14.5); White Blood Count 7.3 K/mm3 (4.5-10.0)
[2022-07-10 05:53] LABS: Anion Gap 11 mmol/L (8-16); Blood Urea Nitrogen 21 mg/dL (9-20); Calcium 8.9 mg/dL (8.4-10.2); Carbon Dioxide 28 mmol/L (22-30); Chloride 102 mmol/L (98-107); Estimated CRCL calculation 91 ml/min; Estimated Glomerular Filt Rate > 60; Glucose 123 mg/dL (65-110); Potassium 3.5 mmol/L (3.4-5.0); Sodium 141 mmol/L (137-145)
[2022-07-10] MEDS: levETIRAcetam ORAL SOL 500 MG/5 ML UDC 1500 MG FEED TUBE ×2 (08:17→21:32)
[2022-07-10] MEDS: ENOXAPARIN 40 MG/0.4 ML SYRINGE SUB-Q (08:18)
[2022-07-10] MEDS: FLUCONAZOLE 200 MG/NACL 100 ML 200 MG/100 ML BAG 100 MG IVPB (11:38)
--- NOTE | 2022-07-10 12:39 | PCPTNOTE ---
Patient is asleep and family reports nor really responsive. Physical therapist talks to family about patient's current status and they report he has been unable to do anything besides being lying in bed since leaving [facility] about 2 months ago with a diagnosis of sepsis. Patient's son also reports that this year the patient had a CVA in december, another in March, and then the sepsis diagnosis and it has taken everything from him. He is unable to bounce back. Patient's son reports they have a lift for the patient, but no sling. Therapist asks the patient's son for the brand to see if we would have one that would fit the sling, but patient's son does not recall the name and some slings will not be compatible for all lifts. Patient's and son thank physical therapist for talking to them. Physical therapist does not see patient as appropriate for skilled therapy at this time and they agree.
--- NOTE | 2022-07-10 12:46 | PM.IMPN ---
Progress Note: A&P Assessment and Plan (1) Acute UTI: Code(s): N39.0 - Urinary tract infection, site not specified Status: Acute (2) AMS (altered mental status): Qualifiers: Altered mental status type: disorientation Qualified Code(s): R41.0 - Disorientation, unspecified Code(s): R41.82 - Altered mental status, unspecified Status: Acute (3) Essential (primary) hypertension: Code(s): I10 - Essential (primary) hypertension Status: Acute (4) Memory deficit: Code(s): R41.3 - Other amnesia Status: Acute (5) Encounter for care or replacement of suprapubic tube: Code(s): Z43.5 - Encounter for attention to cystostomy Status: Acute (6) Acute sinusitis: Code(s): J01.90 - Acute sinusitis, unspecified Status: Acute Plan 72-year-old male with history of seizures, PR, CVA and suprapubic Izquierdo presented emerged department for evaluation of altered mental status and abdominal pain.? Family states patient had recently been treated for urine tract infection and had been started on Levaquin.? Family states after completing Levaquin a few days ago he began having worsening mental status.? Family states today that the patient became nonverbal.? Prior to becoming nonverbal patient was complaining of lower abdominal pain.? Family does state patient has a history of frequent urinary tract infections. 07/08/22 Patient remains nonverbal and unable to provide any ROS or history: patient has chronic indwelling nephrostomy tube and has not been replaced sometime and with history of recurrent UTI and now with abdominal pain, will consult urologist to replace the tube, Ct scan of the head did not show any acute injury rather suggesting acute sinusitis patient is on Cipro, will add ceftriaxone and flagyl, Ct scan of abdomen also suggest cystitis, will follow up on urine and blood culture identification and sensitivity, once more clinically stable will have PT/OT evaluate the patient. 07/09/22 change abx to cefepime to cover sinus and urine seen by Uro SP tube with a 16fr straight catheter without difficulty, >250cc of clear yellow urine on return; with the following recs: family to irrigate his SP tube daily with 1/3 cup white vinegar mixed with 2/3 cup distilled water in a 60cc catheter tip syringe until urine is clear of sediment, to prevent infection and clogging of catheter. They can mix as much of the vinegar/water as needed to clear the bladder. This will be an ongoing problem for someone with an SP tube. I will also suggest antibiotic prophylaxis Keflex 250mg daily after treatment of this UTI to prevent further infections. He will need his SP tube changed at least monthly if not every 2-3 weeks to prevent clogging and infection. monitor for improvement in mental status monitor VS daily labs 07/10/22 Diflucan for candiduria UTI Cefepime for broad coverage spoke w son today if no improvement in cognition in 24 hours will order MRI brain cont current care spoke w PT recs appreciated Subjective Date/time seen: 07/10/22 12:46 doing ok still minimally interactive Review of Systems Review of Systems: ROS unobtainable: Yes unobtainable due to medical condition Exam Narrative: GEN: comfortable, NAD HEENT: eyes are clear and none icteric EOMI LUNGS: normal respiratory effort ABD: not distended, G-tube w feed running Lower extremities: no edema SKIN: nonjaundiced Neuro: nonverbal alert Objective Data Vital Signs Vital Signs: Vital Signs - 24 hr 07/09/22 14:00 07/09/22 17:10 07/09/22 22:53 Temperature 99.0 F 98.3 F 98.2 F Pulse Rate 84 77 Respiratory Rate 20 16 Blood Pressure 150/60 H 127/83 Pulse Oximetry 97 96 Oxygen Delivery 07/10/22 05:13 07/10/22 08:00 Temperature 98.9 F Pulse Rate 80 Respiratory Rate 17 Blood Pressure 162/55 H Pulse Oximetry 98 Oxygen Delivery Room Air Intake/Output Intake/Output: Intake & Output
[2022-07-10 14:00] VITALS: BP 155/61; PULSE 78; RESP 16; TEMP 36.9; O2SAT 98
[2022-07-10] MEDS: SODIUM CHLORIDE 0.9% IV 1,000 ML 75 ML IV CONT (17:26)
[2022-07-10 20:00] VITALS: PULSE 75; RESP 18; O2SAT 96
[2022-07-10 20:17] VITALS: BP 144/48; PULSE 75; RESP 18; TEMP 35.5; O2SAT 96
[2022-07-11 04:42] VITALS: BP 167/64; PULSE 77; RESP 18; TEMP 35.6; O2SAT 98
[2022-07-11] MEDS: SODIUM CHLORIDE 0.9% IV 1,000 ML 75 ML IV CONT ×2 (05:02→20:06)
[2022-07-11 05:40] LABS: Hematocrit 37.8 % (42.0-52.0); Hemoglobin 12.4 g/dL (14.0-18.0); Mean Corpuscular HGB Conc 32.8 g/dl (32-36); Mean Corpuscular Hemoglobin 31.2 pg (26-34); Mean Platelet Volume 10.7 fl (7.4-10.4); Platelet Count Result 191 k/mm3 (150-375); Red Blood Count 3.98 M/mm3 (4.6-6.20); Red Cell Distribution Width 13.1 % (11.5-14.5); White Blood Count 6.3 K/mm3 (4.5-10.0)
[2022-07-11 05:54] LABS: Anion Gap 8 mmol/L (8-16); Blood Urea Nitrogen 18 mg/dL (9-20); Carbon Dioxide 28 mmol/L (22-30); Chloride 102 mmol/L (98-107); Estimated CRCL calculation 110 ml/min; Estimated Glomerular Filt Rate > 60; Glucose 126 mg/dL (65-110); Potassium 3.5 mmol/L (3.4-5.0); Sodium 138 mmol/L (137-145)
[2022-07-11] MEDS: FLUCONAZOLE 200 MG/NACL 100 ML 200 MG/100 ML BAG 100 MG IVPB (10:03)
[2022-07-11] MEDS: levETIRAcetam ORAL SOL 500 MG/5 ML UDC 1500 MG FEED TUBE ×2 (10:05→20:06)
[2022-07-11] MEDS: ENOXAPARIN 40 MG/0.4 ML SYRINGE SUB-Q (10:05)
--- NOTE | 2022-07-11 13:43 | PM.IMPN ---
Progress Note: A&P Assessment and Plan (1) Acute UTI: Code(s): N39.0 - Urinary tract infection, site not specified Status: Acute (2) AMS (altered mental status): Qualifiers: Altered mental status type: disorientation Qualified Code(s): R41.0 - Disorientation, unspecified Code(s): R41.82 - Altered mental status, unspecified Status: Acute (3) Essential (primary) hypertension: Code(s): I10 - Essential (primary) hypertension Status: Acute (4) Memory deficit: Code(s): R41.3 - Other amnesia Status: Acute (5) Encounter for care or replacement of suprapubic tube: Code(s): Z43.5 - Encounter for attention to cystostomy Status: Acute (6) Acute sinusitis: Code(s): J01.90 - Acute sinusitis, unspecified Status: Acute Plan 72-year-old male with history of seizures, [place], CVA and suprapubic Izquierdo presented emerged department for evaluation of altered mental status and abdominal pain.? Family states patient had recently been treated for urine tract infection and had been started on Levaquin.? Family states after completing Levaquin a few days ago he began having worsening mental status.? Family states today that the patient became nonverbal.? Prior to becoming nonverbal patient was complaining of lower abdominal pain.? Family does state patient has a history of frequent urinary tract infections. 07/08/22 Patient remains nonverbal and unable to provide any ROS or history: patient has chronic indwelling nephrostomy tube and has not been replaced sometime and with history of recurrent UTI and now with abdominal pain, will consult urologist to replace the tube, Ct scan of the head did not show any acute injury rather suggesting acute sinusitis patient is on Cipro, will add ceftriaxone and flagyl, Ct scan of abdomen also suggest cystitis, will follow up on urine and blood culture identification and sensitivity, once more clinically stable will have PT/OT evaluate the patient. 07/09/22 change abx to cefepime to cover sinus and urine seen by Uro SP tube with a 16fr straight catheter without difficulty, >250cc of clear yellow urine on return; with the following recs: family to irrigate his SP tube daily with 1/3 cup white vinegar mixed with 2/3 cup distilled water in a 60cc catheter tip syringe until urine is clear of sediment, to prevent infection and clogging of catheter. They can mix as much of the vinegar/water as needed to clear the bladder. This will be an ongoing problem for someone with an SP tube. I will also suggest antibiotic prophylaxis Keflex 250mg daily after treatment of this UTI to prevent further infections. He will need his SP tube changed at least monthly if not every 2-3 weeks to prevent clogging and infection. monitor for improvement in mental status monitor VS daily labs 07/10/22 Diflucan for candiduria UTI Cefepime for broad coverage spoke w son today if no improvement in cognition in 24 hours will order MRI brain cont current care spoke w PT recs appreciated 07/11/22 pt improving slowly unclear what his actual baseline is, family seems to have loving but unrealistic expectations cont current care am labs anticipate dc in 48-72hrs Subjective Date/time seen: 07/11/22 13:43 pt more verbal today but otherwise no significant change Review of Systems Review of Systems: ROS unobtainable: Yes unobtainable due to medical condition Exam Narrative: GEN: comfortable, NAD HEENT: eyes are clear and none icteric EOMI LUNGS: normal respiratory effort ABD: not distended, G-tube w feed running Lower extremities: no edema SKIN: nonjaundiced Neuro: one word answers w delayed response alert Objective Data Vital Signs Vital Signs: Vital Signs - 24 hr 07/10/22 14:00 07/10/22 20:17 07/10/22 20:00 Temperature 98.4 F 96 F L Pulse Rate 78 75 75 Respiratory Rate 16 18 18 Blood Pressure 155/61 H 144/48 H Pulse Oximetry 98 96 96 Oxyg
[2022-07-11 14:00] VITALS: BP 147/50; PULSE 75; RESP 16; TEMP 36.6; O2SAT 98
--- NOTE | 2022-07-11 14:35 | PCNFU ---
Nutrition Follow-Up Complete: Swallowing Difficulties as related to Dysphagia as evidenced by PEG tube feedings Goal:Meet estimated nutritional needs - Goal being met Pt current nutrition is 2Cal HN @ 50 ml/h with 100 ml flushes q 4 hours. 2200 kcals, 92 grams protein, 770 ml free water. Total free water 1320 ml/day. Nutrition recommendation: Continue current tube feeding orders Last recorded weight is 59.4 kg. Bowel Motility: NO BM charted Labs Reviewed:Creat 0.4, Gluc 126 Meds Noted: josué Gutierres Skin: WNL Additional Notes: Tolerating tube feeding with minimal residuals. Same rate and equivalent formula as home rate. Will monitor every Thursday and Thursday.
--- NOTE | 2022-07-11 15:35 | P.CDI_ITS ---
CDI Query Clarification Request Risk Factors: Chronic suprapubic muñoz/nephrostomy tube. Not replaced for some time. Clinical Indicators: AMS, abdominal pain, urine culture grew viky albicans, UTI, catheter noted to be clogged with clot/sediment. Treatment: Cipro and Flagyl Clarification request - UTI has been documented, chronic suprapubic catheter documented. Please clarify if UTI is: * due to/associated with chronic indwelling suprapubic catheter * not due to/associated with chronic indwelling suprapubic catheter * unable to determine <JHONY Means - Last Filed: 07/11/22 15:41> Risk Factors: Chronic suprapubic muñoz/nephrostomy tube. Not replaced for some time. Clinical Indicators: AMS, abdominal pain, urine culture grew viky albicans, UTI, catheter noted to be clogged with clot/sediment. Treatment: Cipro and Flagyl Clarification request - UTI has been documented, chronic suprapubic catheter documented. Please clarify if UTI is: * due to/associated with chronic indwelling suprapubic catheter * not due to/associated with chronic indwelling suprapubic catheter * unable to determine pt has UTI due to/associated with chronic indwelling suprapubic catheter CAUTI POA <Gale Hay MD - Last Filed: 07/12/22 07:33>
[2022-07-11 20:42] VITALS: BP 144/66; PULSE 75; RESP 20; TEMP 36.5; O2SAT 96
[2022-07-12 06:00] VITALS: BP 110/70; PULSE 81; RESP 16; TEMP 36.6; O2SAT 97
[2022-07-12 06:55] LABS: Hematocrit 36.2 % (42.0-52.0); Hemoglobin 11.9 g/dL (14.0-18.0); Mean Corpuscular HGB Conc 32.9 g/dl (32-36); Mean Corpuscular Volume 94.3 fl (80-100); Mean Platelet Volume 10.5 fl (7.4-10.4); Platelet Count Result 218 k/mm3 (150-375); Red Blood Count 3.84 M/mm3 (4.6-6.20); Red Cell Distribution Width 13.2 % (11.5-14.5); White Blood Count 7.7 K/mm3 (4.5-10.0)
[2022-07-12 07:06] LABS: Anion Gap 9 mmol/L (8-16); Blood Urea Nitrogen 19 mg/dL (9-20); Calcium 8.9 mg/dL (8.4-10.2); Carbon Dioxide 28 mmol/L (22-30); Chloride 101 mmol/L (98-107); Estimated CRCL calculation 110 ml/min; Estimated Glomerular Filt Rate > 60; Glucose 122 mg/dL (65-110); Potassium 3.7 mmol/L (3.4-5.0); Sodium 138 mmol/L (137-145)
[2022-07-12] MEDS: SODIUM CHLORIDE 0.9% IV 1,000 ML 75 ML IV CONT ×2 (09:36→22:58)
[2022-07-12] MEDS: ENOXAPARIN 40 MG/0.4 ML SYRINGE SUB-Q (09:37)
[2022-07-12] MEDS: levETIRAcetam ORAL SOL 500 MG/5 ML UDC 1500 MG FEED TUBE ×2 (09:38→22:26)
[2022-07-12] MEDS: FLUCONAZOLE 200 MG/NACL 100 ML 200 MG/100 ML BAG 100 MG IVPB (09:40)
[2022-07-12 16:05] VITALS: BP 145/98; PULSE 86; RESP 14; TEMP 36; O2SAT 95
--- NOTE | 2022-07-12 16:42 | PM.IMPN ---
Progress Note: A&P Assessment and Plan (1) AMS (altered mental status): Qualifiers: Altered mental status type: disorientation Qualified Code(s): R41.0 - Disorientation, unspecified Code(s): R41.82 - Altered mental status, unspecified Status: Acute (2) Essential (primary) hypertension: Code(s): I10 - Essential (primary) hypertension Status: Acute (3) Memory deficit: Code(s): R41.3 - Other amnesia Status: Acute (4) Encounter for care or replacement of suprapubic tube: Code(s): Z43.5 - Encounter for attention to cystostomy Status: Acute (5) Acute sinusitis: Code(s): J01.90 - Acute sinusitis, unspecified Status: Acute (6) Catheter-associated urinary tract infection: Code(s): T83.511A - Infection and inflammatory reaction due to indwelling urethral catheter, initial encounter; N39.0 - Urinary tract infection, site not specified Status: Acute (7) Seizures: Code(s): R56.9 - Unspecified convulsions Status: Acute Plan 72-year-old male with history of seizures, [place], CVA and suprapubic Izquierdo presented emerged department for evaluation of altered mental status and abdominal pain.? Family states patient had recently been treated for urine tract infection and had been started on Levaquin.? Family states after completing Levaquin a few days ago he began having worsening mental status.? Family states today that the patient became nonverbal.? Prior to becoming nonverbal patient was complaining of lower abdominal pain.? Family does state patient has a history of frequent urinary tract infections. 07/08/22 Patient remains nonverbal and unable to provide any ROS or history: patient has chronic indwelling nephrostomy tube and has not been replaced sometime and with history of recurrent UTI and now with abdominal pain, will consult urologist to replace the tube, Ct scan of the head did not show any acute injury rather suggesting acute sinusitis patient is on Cipro, will add ceftriaxone and flagyl, Ct scan of abdomen also suggest cystitis, will follow up on urine and blood culture identification and sensitivity, once more clinically stable will have PT/OT evaluate the patient. 07/09/22 change abx to cefepime to cover sinus and urine seen by Uro SP tube with a 16fr straight catheter without difficulty, >250cc of clear yellow urine on return; with the following recs: family to irrigate his SP tube daily with 1/3 cup white vinegar mixed with 2/3 cup distilled water in a 60cc catheter tip syringe until urine is clear of sediment, to prevent infection and clogging of catheter. They can mix as much of the vinegar/water as needed to clear the bladder. This will be an ongoing problem for someone with an SP tube. I will also suggest antibiotic prophylaxis Keflex 250mg daily after treatment of this UTI to prevent further infections. He will need his SP tube changed at least monthly if not every 2-3 weeks to prevent clogging and infection. monitor for improvement in mental status monitor VS daily labs 07/10/22 Diflucan for candiduria UTI Cefepime for broad coverage spoke w son today if no improvement in cognition in 24 hours will order MRI brain cont current care spoke w PT recs appreciated 07/11/22 pt improving slowly unclear what his actual baseline is, family seems to have loving but unrealistic expectations cont current care am labs anticipate dc in 48-72hrs 07/12/2022 Patient remains minimally verbal 1 word answers at best MRI brain ordered Continue cefepime and Diflucan Anticipate discharge in 24-48 hours back to detention Subjective Date/time seen: 07/12/22 16:42 pt w minimal improvement, POC reviewed w son will order MRI to ensure he has not suffered another stroke Review of Systems Review of Systems: ROS unobtainable: Yes unobtainable due to medical condition and unobtainable due to mental status Exam Narrative: GEN: comfortabl
[2022-07-12 20:00] VITALS: PULSE 83; RESP 20; O2SAT 96
[2022-07-12 20:10] VITALS: BP 161/89; PULSE 83; RESP 20; TEMP 36.4; O2SAT 96
[2022-07-13 05:15] VITALS: BP 147/80; PULSE 77; RESP 20; TEMP 36.4; O2SAT 95
[2022-07-13 06:41] LABS: Hemoglobin 11.8 g/dL (14.0-18.0); Mean Corpuscular HGB Conc 32.8 g/dl (32-36); Mean Corpuscular Hemoglobin 30.7 pg (26-34); Mean Corpuscular Volume 93.8 fl (80-100); Mean Platelet Volume 10.7 fl (7.4-10.4); Platelet Count Result 237 k/mm3 (150-375); Red Blood Count 3.84 M/mm3 (4.6-6.20); Red Cell Distribution Width 13.3 % (11.5-14.5); White Blood Count 8.3 K/mm3 (4.5-10.0)
[2022-07-13 06:57] LABS: Anion Gap 9 mmol/L (8-16); Blood Urea Nitrogen 22 mg/dL (9-20); Calcium 8.8 mg/dL (8.4-10.2); Carbon Dioxide 30 mmol/L (22-30); Chloride 101 mmol/L (98-107); Estimated CRCL calculation 110 ml/min; Estimated Glomerular Filt Rate > 60; Glucose 126 mg/dL (65-110); Potassium 3.9 mmol/L (3.4-5.0); Sodium 140 mmol/L (137-145)
--- NOTE | 2022-07-13 08:01 | PM.IMPN ---
Progress Note: A&P Assessment and Plan (1) Silent micro-hemorrhage of brain: Code(s): I61.8 - Other nontraumatic intracerebral hemorrhage Status: Acute (2) AMS (altered mental status): Qualifiers: Altered mental status type: disorientation Qualified Code(s): R41.0 - Disorientation, unspecified Code(s): R41.82 - Altered mental status, unspecified Status: Acute (3) Dementia: Code(s): F03.90 - Unspecified dementia, unspecified severity, without behavioral disturbance, psychotic disturbance, mood disturbance, and anxiety Status: Acute (4) Seizures: Code(s): R56.9 - Unspecified convulsions Status: Acute (5) Essential (primary) hypertension: Code(s): I10 - Essential (primary) hypertension Status: Acute (6) Encounter for care or replacement of suprapubic tube: Code(s): Z43.5 - Encounter for attention to cystostomy Status: Acute (7) Acute sinusitis: Code(s): J01.90 - Acute sinusitis, unspecified Status: Acute (8) Catheter-associated urinary tract infection: Code(s): T83.511A - Infection and inflammatory reaction due to indwelling urethral catheter, initial encounter; N39.0 - Urinary tract infection, site not specified Status: Acute (9) Spasticity: Code(s): R25.2 - Cramp and spasm Status: Acute (10) Depression: Qualifiers: Depression Type: unspecified Qualified Code(s): F32.A - Depression, unspecified Code(s): F32.A - Depression, unspecified Status: Acute Plan 72-year-old male with history of seizures, ID, CVA and suprapubic Izquierdo presented emerged department for evaluation of altered mental status and abdominal pain.? Family states patient had recently been treated for urine tract infection and had been started on Levaquin.? Family states after completing Levaquin a few days ago he began having worsening mental status.? Family states today that the patient became nonverbal.? Prior to becoming nonverbal patient was complaining of lower abdominal pain.? Family does state patient has a history of frequent urinary tract infections. 07/08/22 Patient remains nonverbal and unable to provide any ROS or history: patient has chronic indwelling nephrostomy tube and has not been replaced sometime and with history of recurrent UTI and now with abdominal pain, will consult urologist to replace the tube, Ct scan of the head did not show any acute injury rather suggesting acute sinusitis patient is on Cipro, will add ceftriaxone and flagyl, Ct scan of abdomen also suggest cystitis, will follow up on urine and blood culture identification and sensitivity, once more clinically stable will have PT/OT evaluate the patient. 07/09/22 change abx to cefepime to cover sinus and urine seen by Uro SP tube with a 16fr straight catheter without difficulty, >250cc of clear yellow urine on return; with the following recs: family to irrigate his SP tube daily with 1/3 cup white vinegar mixed with 2/3 cup distilled water in a 60cc catheter tip syringe until urine is clear of sediment, to prevent infection and clogging of catheter. They can mix as much of the vinegar/water as needed to clear the bladder. This will be an ongoing problem for someone with an SP tube. I will also suggest antibiotic prophylaxis Keflex 250mg daily after treatment of this UTI to prevent further infections. He will need his SP tube changed at least monthly if not every 2-3 weeks to prevent clogging and infection. monitor for improvement in mental status monitor VS daily labs 07/10/22 Diflucan for candiduria UTI Cefepime for broad coverage spoke w son today if no improvement in cognition in 24 hours will order MRI brain cont current care spoke w PT recs appreciated 07/11/22 pt improving slowly unclear what his actual baseline is, family seems to have loving but unrealistic expectations cont current care am labs anticipate dc in 48-72hrs
[2022-07-13] MEDS: FLUCONAZOLE 200 MG/NACL 100 ML 200 MG/100 ML BAG 100 MG IVPB (09:15)
[2022-07-13] MEDS: levETIRAcetam ORAL SOL 500 MG/5 ML UDC 1500 MG FEED TUBE ×2 (09:16→20:17)
[2022-07-13] MEDS: hydrALAZINE HCL 20 MG/ML VIAL 10 MG IV PUSH ×3 (09:23→20:17)
[2022-07-13 09:25] VITALS: PULSE 79; RESP 20; O2SAT 95
--- NOTE | 2022-07-13 12:11 | WPDNEURCNPN ---
Assessment and Plan Assessment and plan (1) Catheter-associated urinary tract infection: Code(s): T83.511A - Infection and inflammatory reaction due to indwelling urethral catheter, initial encounter; N39.0 - Urinary tract infection, site not specified Status: Acute (2) Silent micro-hemorrhage of brain: Code(s): I61.8 - Other nontraumatic intracerebral hemorrhage Status: Acute (3) Dementia: Code(s): F03.90 - Unspecified dementia, unspecified severity, without behavioral disturbance, psychotic disturbance, mood disturbance, and anxiety Status: Acute (4) Spasticity: Code(s): R25.2 - Cramp and spasm Status: Acute Plan bihemispheric multiple hemorrhages with dementia whether related to amyloidosis unclear but follow evaluation has been done in the past at [facility]. At this stage is neurological status is stable and cannot be reversed he will need the care for his routine day-to-day nursing and after thorough discussion with the as well as the son the understood and would like take him home not in the jail they understand that he be only fair it through the tube and simple medications will be continued but they are not looking for any further investigations. One could consider the possibility of fungal infection but I think it will be much to consider the spinal tap at this stage most likely his condition is related to microhemorrhages with dementia and spasticity they will need guidance for the continuation or nutrition care at home thank Consult date: 07/13/22 Time Seen: 11:45 Reason for consult: Change in the mental status HPI: Jones Gutierrez is a 72 year old male has been admitted to [facility] through the emergency room where he presented with the history of 1. Seizures 2. Cerebrovascular accident 3. Myocardial infarction 4. Izquierdo is in place as per the information available at the time of initial visit he has been experiencing abdominal discomfort and recently treated for the urinary tract infection and has been started on Levaquin family did mention in the emergency room the patient does have ongoing history of recurrent urinary tract infection. His home medication included levetiracetam 1500 mg b.i.d. he is not allergic to any medication. He has ongoing history of chronic anticoagulation therapy with hypertension, history of GERD, history of COVID in September of 2021, history of prostatic cancer for which surgery has been done in 2011 he does not drink alcohol, no substance use and no smoking. 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 Investigations up until now also includes MRI of the brain which revealed chronic focal areas of parenchymal bleed involving right peripheral frontal gyri and left medial frontal gyri in addition to laminar necrosis and scattered foci of susceptibility in the bilateral temporal and frontal sulci representing old subarachnoid bleed. I talked to the son and the personally patient has been seen at the [facility] in the past with documentation of the hemorrhages when he was started on aspirin and subsequently he was seen at [facility] where aspirin was discontinued but no further intervention was suggested. Review of Systems Review of Systems: All systems reviewed & are unremarkable except as noted in HPI and below PMFSH Past Medical History Medical History Chronic anticoagulation Depression Environmental allergies Essential (primary) hypertension GERD (gastroesophageal reflux disease) History of colon polyps History of COVID-19 (~09/2021) Prediabetes Prostate cancer prostatecto
[2022-07-13 17:00] VITALS: BP 130/65; PULSE 106; RESP 28; TEMP 35.9; O2SAT 98
[2022-07-13 20:00] VITALS: PULSE 106; RESP 18; O2SAT 94
[2022-07-13] MEDS: SODIUM CHLORIDE 0.9% IV 1,000 ML 75 ML IV CONT (20:17)
[2022-07-13 20:53] VITALS: BP 142/84; PULSE 106; RESP 18; TEMP 36.6; O2SAT 94
[2022-07-14 04:54] VITALS: BP 135/77; PULSE 104; RESP 18; TEMP 36.6; O2SAT 92
[2022-07-14 05:42] LABS: Hematocrit 39.9 % (42.0-52.0); Hemoglobin 13.2 g/dL (14.0-18.0); Mean Corpuscular HGB Conc 33.1 g/dl (32-36); Mean Corpuscular Hemoglobin 31.2 pg (26-34); Mean Corpuscular Volume 94.3 fl (80-100); Mean Platelet Volume 10.5 fl (7.4-10.4); Platelet Count Result 271 k/mm3 (150-375); Red Blood Count 4.23 M/mm3 (4.6-6.20); Red Cell Distribution Width 13.8 % (11.5-14.5); White Blood Count 10.3 K/mm3 (4.5-10.0)
[2022-07-14 06:27] LABS: Anion Gap 11 mmol/L (8-16); Blood Urea Nitrogen 22 mg/dL (9-20); Calcium 9.3 mg/dL (8.4-10.2); Carbon Dioxide 27 mmol/L (22-30); Chloride 103 mmol/L (98-107); Estimated CRCL calculation 110 ml/min; Estimated Glomerular Filt Rate > 60; Glucose 126 mg/dL (65-110); Sodium 141 mmol/L (137-145)
[2022-07-14] MEDS: hydrALAZINE HCL 20 MG/ML VIAL 10 MG IV PUSH ×3 (06:39→21:11)
[2022-07-14] MEDS: FLUCONAZOLE 200 MG/NACL 100 ML 200 MG/100 ML BAG 100 MG IVPB (09:56)
[2022-07-14] MEDS: levETIRAcetam ORAL SOL 500 MG/5 ML UDC 1500 MG FEED TUBE ×2 (09:56→20:24)
[2022-07-14 14:03] VITALS: BP 158/46; PULSE 97; RESP 16; TEMP 36.8; O2SAT 96
--- NOTE | 2022-07-14 17:39 | P.PNIM_ITS ---
Progress Note: A&P Assessment and Plan (1) Silent micro-hemorrhage of brain: Code(s): I61.8 - Other nontraumatic intracerebral hemorrhage Status: Acute (2) AMS (altered mental status): Qualifiers: Altered mental status type: disorientation Qualified Code(s): R41.0 - Disorientation, unspecified Code(s): R41.82 - Altered mental status, unspecified Status: Acute (3) Dementia: Code(s): F03.90 - Unspecified dementia, unspecified severity, without behavioral disturbance, psychotic disturbance, mood disturbance, and anxiety Status: Acute (4) Seizures: Code(s): R56.9 - Unspecified convulsions Status: Acute (5) Essential (primary) hypertension: Code(s): I10 - Essential (primary) hypertension Status: Acute (6) Encounter for care or replacement of suprapubic tube: Code(s): Z43.5 - Encounter for attention to cystostomy Status: Acute (7) Acute sinusitis: Code(s): J01.90 - Acute sinusitis, unspecified Status: Acute (8) Catheter-associated urinary tract infection: Code(s): T83.511A - Infection and inflammatory reaction due to indwelling urethral catheter, initial encounter; N39.0 - Urinary tract infection, site not specified Status: Acute (9) Spasticity: Code(s): R25.2 - Cramp and spasm Status: Acute (10) Depression: Qualifiers: Depression Type: unspecified Qualified Code(s): F32.A - Depression, unspecified Code(s): F32.A - Depression, unspecified Status: Acute Plan 72-year-old male with history of seizures, CT, CVA and suprapubic Izquierdo presented emerged department for evaluation of altered mental status and abdominal pain.? Family states patient had recently been treated for urine tract infection and had been started on Levaquin.? Family states after completing Levaquin a few days ago he began having worsening mental status.? Family states today that the patient became nonverbal.? Prior to becoming nonverbal patient wa s complaining of lower abdominal pain.? Family does state patient has a history of frequent urinary tract infections. 07/08/22 Patient remains nonverbal and unable to provide any ROS or history: patient has chronic indwelling nephrostomy tube and has not been replaced sometime and with history of recurrent UTI and now with abdominal pain, will consult urologist to replace the tube, Ct scan of the head did not show any acute injury rather suggesting acute sinusitis patient is on Cipro, will add ceftriaxone and flagyl, Ct scan of abdomen also suggest cystitis, will follow up on urine and blood c ulture identification and sensitivity, once more clinically stable will have PT/OT evaluate the patient. 07/09/22 change abx to cefepime to cover sinus and urine seen by Uro SP tube with a 16fr straight catheter without difficulty, >250cc of clear yellow urine on return; with the following recs: family to irrigate his SP tube daily with 1/3 cup white vinegar mixed with 2/3 cup distilled water in a 60cc catheter tip syringe until urine is clear of sediment, to prevent infection and clogging of catheter. They can mix as much of the vinegar/water as needed to clear the bladder. This will be an ongoing problem for someone with an SP tube. I will also suggest antibiotic prophylaxis Keflex 250mg daily after treatment of this UTI to prevent further infections. He will need his SP tube changed at least monthly if not every 2-3 weeks to prevent clogging and infection. monitor for improvement in mental status monitor VS daily labs 07/10/22 Diflucan for candiduria UTI Ce
[2022-07-14] MEDS: SODIUM CHLORIDE 0.9% IV 1,000 ML 75 ML IV CONT (18:43)
[2022-07-14 20:00] VITALS: PULSE 98; RESP 19; O2SAT 96
[2022-07-14 20:45] VITALS: BP 144/86; PULSE 98; RESP 19; TEMP 36.6; O2SAT 96
[2022-07-15 04:35] VITALS: BP 155/81; PULSE 82; RESP 18; TEMP 36.6; O2SAT 94
[2022-07-15] MEDS: hydrALAZINE HCL 20 MG/ML VIAL 10 MG IV PUSH (05:15)
[2022-07-15 05:50] LABS: Hematocrit 37.9 % (42.0-52.0); Hemoglobin 12.2 g/dL (14.0-18.0); Mean Corpuscular HGB Conc 32.2 g/dl (32-36); Mean Corpuscular Hemoglobin 31.7 pg (26-34); Mean Corpuscular Volume 98.4 fl (80-100); Mean Platelet Volume 10.4 fl (7.4-10.4); Platelet Count Result 263 k/mm3 (150-375); Red Blood Count 3.85 M/mm3 (4.6-6.20); Red Cell Distribution Width 14.4 % (11.5-14.5); White Blood Count 11.2 K/mm3 (4.5-10.0)
[2022-07-15 05:59] LABS: Anion Gap 9 mmol/L (8-16); Blood Urea Nitrogen 23 mg/dL (9-20); Calcium 8.9 mg/dL (8.4-10.2); Carbon Dioxide 26 mmol/L (22-30); Chloride 104 mmol/L (98-107); Estimated CRCL calculation 110 ml/min; Estimated Glomerular Filt Rate > 60; Glucose 123 mg/dL (65-110); Potassium 3.9 mmol/L (3.4-5.0); Sodium 139 mmol/L (137-145)
[2022-07-15] MEDS: FLUCONAZOLE 200 MG/NACL 100 ML 200 MG/100 ML BAG 100 MG IVPB (08:33)
[2022-07-15] MEDS: levETIRAcetam ORAL SOL 500 MG/5 ML UDC 1500 MG FEED TUBE (08:33)
[2022-07-15] MEDS: SCOPOLAMINE 1.5 MG PATCH TRANSDERM (08:34)
--- NOTE | 2022-07-15 09:06 | PM.DS ---
DS: Admitting Diagnosis Discharge Date 07/15/22 Admitting Diagnosis (1) Acute UTI: ?Code(s): N39.0 - Urinary tract infection, site not specified ?Status:?Acute ?Assessment and Plan: (2) AMS (altered mental status): ?Qualifiers: ?Altered mental status type:?disorientation? Qualified Code(s):?R41.0 - Disorientation, unspecified ?Code(s): R41.82 - Altered mental status, unspecified ?Status:?Acute ?Assessment and Plan: (3) Essential (primary) hypertension: ?Code(s): I10 - Essential (primary) hypertension ?Status:?Acute ?Assessment and Plan: ? (4) Memory deficit: ?Code(s): R41.3 - Other amnesia ?Status:?Acute ?Assessment and Plan: DS: Summary Hospital Course Reason for hospitalization: mtef Complaint: Alter mental status and abdominal pain Narrative: ED-HPI narrative: 72-year-old male with history of seizures, [place], CVA and suprapubic Izquierdo presented emerged department for evaluation of altered mental status and abdominal pain.? Family states patient had recently been treated for urine tract infection and had been started on Levaquin.? Family states after completing Levaquin a few days ago he began having worsening mental status.? Family states today that the patient became nonverbal.? Prior to becoming nonverbal patient was complaining of lower abdominal pain.? Family does state patient has a history of frequent urinary tract infections. Patient remains nonverbal and unable to provide any ROS or history: patient has chronic indwelling nephrostomy tube and has not been replaced sometime and with history of recurrent UTI and now with abdominal pain, will consult urologist to replace the tube, Ct scan of the head did not show any acute injury rather suggesting acute sinusitis patient is on Cipro, will add ceftriaxone and flagyl, Ct scan of abdomen also suggest cystitis, will follow up on urine and blood culture identification and sensitivity, once more clinically stable will have PT/OT evaluate the patient. ?patient admitted as observation status Hospital Course: 72-year-old male with history of seizures, [place], CVA and suprapubic Izquierdo presented emerged department for evaluation of altered mental status and abdominal pain.? Family states patient had recently been treated for urine tract infection and had been started on Levaquin.? Family states after completing Levaquin a few days ago he began having worsening mental status.? Family states today that the patient became nonverbal.? Prior to becoming nonverbal patient was complaining of lower abdominal pain.? Family does state patient has a history of frequent urinary tract infections. 07/08/22 Patient remains nonverbal and unable to provide any ROS or history: patient has chronic indwelling nephrostomy tube and has not been replaced sometime and with history of recurrent UTI and now with abdominal pain, will consult urologist to replace the tube, Ct scan of the head did not show any acute injury rather suggesting acute sinusitis patient is on Cipro, will add ceftriaxone and flagyl, Ct scan of abdomen also suggest cystitis, will follow up on urine and blood culture identification and sensitivity, once more clinically stable will have PT/OT evaluate the patient. 07/09/22 change abx to cefepime to cover sinus and urine seen by Uro SP tube with a 16fr straight catheter without difficulty, >250cc of clear yellow urine on return; with the following recs: family to irrigate his SP tube daily with 1/3 cup white vinegar mixed with 2/3 cup distilled water in a 60cc catheter tip syringe until urine is clear of sediment, to prevent infection and clogging of catheter. They can mix as much of the vinegar/water as needed to clear the bladder. This will be an ongoing problem for someone with an SP tube. I will also suggest antibiotic prophylaxis Keflex 250mg daily after treatment of this UTI to prevent further infections. He will need his SP tube changed
== END 2022-07-15 13:50 | disposition hospice, home (50) | DRG 698 ==
LOC: ANHED 20:12 → ANH3MED 22:12
PROVIDERS: Family Medicine; Admitting Provider Internal Medicine; Emergency Provider Emergency Medicine; PCP Family Medicine; Visit Provider Hospitalist
DX: T83.510A Infection and inflammatory reaction due to cystostomy catheter, initial encounter (principal); I61.8 Other nontraumatic intracerebral hemorrhage; B37.49 Other urogenital candidiasis; T83.090A Other mechanical complication of cystostomy catheter, initial encounter; R25.2 Cramp and spasm; R41.3 Other amnesia; J01.90 Acute sinusitis, unspecified; F32.A Depression, unspecified; I10 Essential (primary) hypertension; R56.9 Unspecified convulsions; F03.90 Unspecified dementia, unspecified severity, without behavioral disturbance, psychotic disturbance, mood disturbance, and anxiety; K21.9 Gastro-esophageal reflux disease without esophagitis; I25.2 Old myocardial infarction; Z79.01 Long term (current) use of anticoagulants; Z86.16 Personal history of COVID-19; Z85.46 Personal history of malignant neoplasm of prostate; Z90.49 Acquired absence of other specified parts of digestive tract; Z86.73 Personal history of transient ischemic attack (TIA), and cerebral infarction without residual deficits
CPT/HCPCS: 36415; 70450; 70551; 74177; 80048; 80053; 81001; 85025; 85027; 85610; 85730; 87040; 87086; 87088; 87106; 93005; 96361; 96365; 96366; 96372; 96375; 99285; A9270; G0378; J0131; J0360; J0692; J0696; J0744; J1450; J1650; J7030; Q9967

== ENCOUNTER 2022-07-15 22:48 | Observation (INO) | payer MEDICARE, SELFPAY ==
--- NOTE | ~2022-07-15 | XR_ITS ---
EXAMINATION: XR chest 1V portable DATE: 07/15/2022 23:33 INDICATION: Shortness of breath. Cough. TECHNIQUE: A single frontal view of the chest was obtained. COMPARISON: Chest 2 views 03/11/2022 FINDINGS: There are airspace opacities in right lower lung zone. No pleural effusion or pneumothorax. The heart size is normal. IMPRESSION: 1. Airspace opacities in right lower lung zone, consistent with atelectasis versus pneumonia. Reviewed, dictated and finalized at location A. IMPRESSION: 1. Airspace opacities in right lower lung zone, consistent with atelectasis tom barbara pneumonia.
--- NOTE | 2022-07-15 23:00 | PC.NURSE ---
Assumed care of pt. at this time. Report from CHENCHO Burton
[2022-07-15 23:01] VITALS: BP 129/45; PULSE 103; RESP 28; TEMP 38.8; O2SAT 93
[2022-07-15 23:05] VITALS: O2SAT 95
--- NOTE | 2022-07-15 23:09 | PC.NURSE ---
[id number] Contacted [facility]. Spoke with Gladys. Stated that pt is still in pending status and not currently under treatment yet. Dr. Magaña made aware.
--- NOTE | 2022-07-15 23:28 | ED.GENADULT ---
HPI - General Adult General Chief complaint: Shortness of Breath/Dyspnea Stated complaint: POSS ASPIRATION History of Present Illness HPI narrative: Patient is a 72-year-old male who presents ER with concern for possible aspiration. Patient was coughing up thick yellow and white mucus and gagging on at home. Son suctioned from mouth. They called home health who recommended he come to the ER to be evaluated. Patient is recently been discharged from the hospital. While here he was diagnosed with some microhemorrhages of the brain and has chronic changes as well. Patient was evaluated by [facility]s hospice but has not yet signed on. present and wants full treatment but stop short of saying she wants chest compressions or patient be on a ventilator. She would like to see him actively cared for. Patient had sudden onset of his aspiration this evening. He had not been running fevers or having difficulty breathing previously. Related Data Allergies Allergy/AdvReac Type Severity Reaction Status Date / Time No Known Allergies Allergy Verified 06/24/22 22:57 Review of Systems Review of Systems: ROS unobtainable: Yes unobtainable due to medical condition PMFSH Past Medical History Medical History Chronic anticoagulation Depression Environmental allergies Essential (primary) hypertension GERD (gastroesophageal reflux disease) History of colon polyps History of COVID-19 (~09/2021) Prediabetes Prostate cancer prostatectomy 2011 Surgical History Surgical History History of appendectomy 1950s History of radical prostatectomy 2011 History of vasectomy Hx of cystoscopy 12/23 - left ureteroscopy for stone extraction 04/24: Urethral stricture dilatation Family History Family History Other Diabetes mellitus Family history of coronary artery disease Hypertension Malignant neoplasm of prostate Social History Social History Smoking status: Never smoker Second hand tobacco smoke exposure: No Alcohol intake: never Alcohol use details: SOCIAL IN DISTANCE PAST Substance use: never Substance use type: does not use Additional living arrangements comments: , SON Gender identity (if verbalized by the patient): Male Spiritual care concerns: No Exam Narrative: GENERAL: Chronically ill-appearing, well-nourished, and in mild distress. HEAD: Normocephalic, atraumatic. EYES: PERRL and EOMI. ENT: Mucous membranes moist. Thick adherent mucus of tongue. CHEST: Coarse Rales with coughing worse on the right than the left. Mild respiratory distress. HEART: Regular rate and rhythm. Normal peripheral pulses. ABDOMEN: Soft, nontender, nondistended. EXTREMITIES: Normal range of motion. No edema. SKIN: Warm, dry, no rash. NEURO: Patient awake and alert but not oriented. Course Course Emergency Course: Admit for further evaluation. IV antibiotics ordered for aspiration pneumonia. I had a long discussion with patient's who has reservations about hospice due to a unfortunate situation with a separate family friend. I have tried to discussed that the patient has multiple end-of-life issues and hospice care certainly seems appropriate. Discussed that we can treat his pneumonia we cannot change the fact that he may have recurrent aspiration and difficulty breathing. Vital Signs Vital signs: Vital Signs Temperature 102 F H 07/15/22 23:01 Pulse Rate 103 H 07/15/22 23:01 Respiratory Rate 28 H 07/15/22 23:01 Blood Pressure 129/45 L 07/15/22 23:01 Pulse Oximetry 93 07/15/22 23:01 Oxygen Delivery Room Air 07/15/22 23:01 Temperature 97.8 F 07/16/22 03:00 Pulse Rate 83 07/16/22 06:00 Respiratory Rate 20 07/16/22 04:00 Blood Pressure 147/58 H
[2022-07-15 23:30] VITALS: PULSE 99; O2SAT 95
[2022-07-16] VITALS (11 sets, daily range): BP systolic 101–156; BP diastolic 47–107; PULSE 77–101; RESP 14–32; TEMP 36–37.4; O2SAT 95–100; BMI 20.4
[2022-07-16 00:01] LABS: Basophils Percent Auto 0.2 % (0.2-1.2); Eosinophils Percent Auto 0.1 % (0-4.4); Hematocrit 36.5 % (42.0-52.0); Hemoglobin 11.8 g/dL (14.0-18.0); Immature Granulocyte Absolute 0.08 K/mm3 (0.00-0.031); Immature Granulocyte Percent A 0.4 % (0-0.5); Lymphocytes Absolute Auto 1.08 K/mm3 (0.9-3.2); Lymphocytes Percent Auto 5.5 % (18.3-44.2); Mean Corpuscular HGB Conc 32.3 g/dl (32-36); Mean Corpuscular Hemoglobin 31.1 pg (26-34); Mean Corpuscular Volume 96.1 fl (80-100); Mean Platelet Volume 10.7 fl (7.4-10.4); Monocytes Absolute Auto 1.6 K/mm3 (0.1-0.6); Monocytes Percent Auto 8.2 % (2.6-8.5); Neutrophils Absolute Auto 16.9 K/mm3 (1.3-6.7); Neutrophils Percent Auto 85.6 % (45.5-73.1); Platelet Count Result 265 k/mm3 (150-375); Red Cell Distribution Width 14.5 % (11.5-14.5); White Blood Count 19.7 K/mm3 (4.5-10.0)
[2022-07-16 00:11] LABS: Lactic Acid Reflex 1.6 mmol/L (0.7-2.0)
[2022-07-16 00:15] LABS: INR 1.1; Prothrombin Time 14.1 Seconds (11.1-14.7)
[2022-07-16 00:16] LABS: Partial Thromboplastin Time 30.9 SECONDS (22.3-36.8)
[2022-07-16 00:21] LABS: Add Urine Microscopic? YES; Alanine Aminotransferase 47 U/L (6-50); Albumin Level 3.5 g/dL (3.5-5.1); Alkaline Phosphatase 90 U/L (38-126); Anion Gap 8 mmol/L (8-16); Appearance Urine Cloudy (Clear); Aspartate Amino Transferase 40 U/L (17-59); Bacteria Urine Trace /hpf; Bilirubin Urine Negative (Negative); Bilirubin,Total 0.7 mg/dL (0.2-1.3); Blood Urea Nitrogen 29 mg/dL (9-20); Blood Urine 1+ (Negative); CRP 6.5 mg/dL (<1.0); Calcium 9.3 mg/dL (8.4-10.2); Calcium Oxalate Crystals Urine Present /hpf; Carbon Dioxide 27 mmol/L (22-30); Chloride 103 mmol/L (98-107); Color Urine Yellow (Yellow); Estimated Glomerular Filt Rate > 60; Glucose 162 mg/dL (65-110); Glucose Urine UA Negative (Negative); Ketones Urine Negative (Negative); Leukocyte Esterase Ur 2+ LEU/UL (Negative); Mucus Urine Heavy /lpf; Nitrate Urine Negative (Negative); Potassium 4.2 mmol/L (3.4-5.0); Protein Urine 2+ mg/dL (Negative); RBC Urine 51-75 /hpf (0-2); Sodium 138 mmol/L (137-145); Specific Grav Ur 1.024 (1.001-1.035); Squamous Epithelial Cell Urine Rare /hpf (Few); Urobilinogen Urine Negative mg/dL (<2.0); WBC Urine 31-50 /hpf
--- NOTE | 2022-07-16 01:16 | PM.IMHP ---
H&P: HPI History of Present Illness Date/Time: 07/16/22 01:16 Chief Complaint: 77 years old male with past medical history of seizure intracranial bleed stroke has PEG tube presented to the hospital with cough yellow sputum and episode of hypoxia requiring 2 L oxygen patient also was short of breath patient was discharged from the hospital today where he was treated for altered mental status and abdominal pain was found to have UTI MRI of the brain showed ischemic changes and chronic intracranial hemorrhage patient was discharged with plan to start hospice but hospice was not able to visit the patient today patient currently is DNR family did not decide about hospice yet Review of Systems Review of Systems: Unable to obtain due to current condition PMFSH Past Medical History Medical History Chronic anticoagulation Depression Environmental allergies Essential (primary) hypertension GERD (gastroesophageal reflux disease) History of colon polyps History of COVID-19 (~09/2021) Prediabetes Prostate cancer prostatectomy 2011 Surgical History Surgical History History of appendectomy 1950s History of radical prostatectomy 2011 History of vasectomy Hx of cystoscopy 12/23 - left ureteroscopy for stone extraction 04/24: Urethral stricture dilatation Family History Family History Other Diabetes mellitus Family history of coronary artery disease Hypertension Malignant neoplasm of prostate Social History Social History Smoking status: Never smoker Second hand tobacco smoke exposure: No Alcohol intake: never Alcohol use details: SOCIAL IN DISTANCE PAST Substance use: never Substance use type: does not use Additional living arrangements comments: , SON Gender identity (if verbalized by the patient): Male Spiritual care concerns: No Meds Home Medications and Allergies Home Medications Medication Instructions Recorded Confirmed Type levetiracetam 100 mg/mL oral 1,500 mg (15 mL) feeding tube 07/15/22 Rx solution Q12HR 30 days #900 mL lisinopril 10 mg tablet 10 mg feeding tube BID 30 days #60 07/15/22 Rx tabs scopolamine base 1 mg over 3 days 1.5 mg transdermal Q72HR 30 days 07/15/22 Rx transdermal patch (Transderm-Scop) #10 ea Allergies Allergy/AdvReac Type Severity Reaction Status Date / Time No Known Allergies Allergy Verified 06/24/22 22:57 Vital Signs Vital Signs - 24 hr 07/15/22 23:01 07/15/22 23:05 07/15/22 23:30 Temperature 102 F H Pulse Rate 103 H 99 Respiratory Rate 28 H Blood Pressure 129/45 L Pulse Oximetry 93 95 Oxygen Delivery Room Air Nasal Cannula Oxygen Flow Rate 2 07/15/22 23:30 07/16/22 00:29 Temperature Pulse Rate 99 Respiratory Rate 14 Blood Pressure 101/72 Pulse Oximetry 95 99 Oxygen Delivery Nasal Cannula Oxygen Flow Rate 2.0 Exam Narrative: GENERAL: Ill-appearing in respiratory distress. HEAD: Normocephalic, atraumatic. NECK: Supple. No adenopathy, no masses. RESPIRATORY: Bilateral crackles CARDIOVASCULAR: Regular rate and rhythm without murmurs, rubs, or gallops. Peripheral pulses 2+ and equal bilaterally. ABDOMINAL: Soft, nontender, nondistended, no hepatosplenomegaly. Normoactive BS. MUSCULOSKELETAL: Moves all extremities SKIN: Warm, dry, normal color. No rashes. NEURO: Does not follow commands. PSYCHIATRIC: Appropriate mood and affect. Normal interaction. H&P: Results Labs Labs: Short CBC 07/15/22 Range/Units 23:52 WBC 19.7 H (4.5-10.0) K/mm3 Hgb 11.8 L (14.0-18.0) g/dL Hct 36.5 L (42.0-52.0) % Plt Count 265 (150-375) k/mm3 [facility] 07/15/22 23:52 Sodium 138 Potassium 4.2 Chloride 103 Carbon Dioxide 27 BUN 29 H Cr
--- NOTE | 2022-07-16 03:10 | ADMGEN ---
This patient, Jones Gutierrez, was admitted to IMU Room 214-01. Patient/family oriented to hospital policies and general routines including ID bracelet, bed and alarms, visiting hours, pain management, procedures, bathroom and other care routines, personal items, smoking policy, room service/diet, and visiting hours. Information on how to activate the Rapid Response Team has been discussed. Patient/Family are encouraged to report perceived risks to care and to ask questions if they do not understand what they are told or what they should do.
[2022-07-16] MEDS: SODIUM CHLORIDE 0.9% IV 1,000 ML 100 ML IV CONT ×2 (03:32→14:02)
[2022-07-16 06:30] LABS: Basophils Percent Auto 0.2 % (0.2-1.2); Eosinophils Percent Auto 0.1 % (0-4.4); Hematocrit 37.8 % (42.0-52.0); Hemoglobin 12.2 g/dL (14.0-18.0); Immature Granulocyte Absolute 0.09 K/mm3 (0.00-0.031); Immature Granulocyte Percent A 0.5 % (0-0.5); Lymphocytes Absolute Auto 1.57 K/mm3 (0.9-3.2); Lymphocytes Percent Auto 9.1 % (18.3-44.2); Mean Corpuscular HGB Conc 32.3 g/dl (32-36); Mean Corpuscular Hemoglobin 31.1 pg (26-34); Mean Corpuscular Volume 96.4 fl (80-100); Mean Platelet Volume 10.4 fl (7.4-10.4); Monocytes Absolute Auto 1.5 K/mm3 (0.1-0.6); Monocytes Percent Auto 8.7 % (2.6-8.5); Neutrophils Percent Auto 81.4 % (45.5-73.1); Platelet Count Result 227 k/mm3 (150-375); Red Blood Count 3.92 M/mm3 (4.6-6.20); Red Cell Distribution Width 14.6 % (11.5-14.5); White Blood Count 17.2 K/mm3 (4.5-10.0)
[2022-07-16 06:50] LABS: Alanine Aminotransferase 45 U/L (6-50); Albumin Level 3.5 g/dL (3.5-5.1); Alkaline Phosphatase 76 U/L (38-126); Anion Gap 12 mmol/L (8-16); Aspartate Amino Transferase 37 U/L (17-59); Bilirubin,Total 0.9 mg/dL (0.2-1.3); Blood Urea Nitrogen 27 mg/dL (9-20); Calcium 9.3 mg/dL (8.4-10.2); Carbon Dioxide 28 mmol/L (22-30); Chloride 101 mmol/L (98-107); Estimated CRCL calculation 110 ml/min; Estimated Glomerular Filt Rate > 60; Glucose 118 mg/dL (65-110); Potassium 4.1 mmol/L (3.4-5.0); Sodium 141 mmol/L (137-145)
--- NOTE | 2022-07-16 17:20 | PM.IMPN ---
Progress Note: A&P Assessment and Plan (1) Spasticity: Code(s): R25.2 - Cramp and spasm Status: Acute Assessment and Plan: PT OT [facility] evaluation 07/16/2022 interval history: 72-year-old male will discharge on 07/15 to be admitted under hospice care however patient with a PEG NG tube feeding was not titrated patient was brought back for further evaluate, hospice services restarted the patient on G-tube feeding and will monitor as patient can tolerate before discharging home. unfortunately patient is quite somnolent unable to provide any review of symptoms, (2) Silent micro-hemorrhage of brain: Code(s): I61.8 - Other nontraumatic intracerebral hemorrhage Status: Acute Assessment and Plan: Hospice evaluation poor prognosis Pending family decision regarding hospice (3) Catheter-associated urinary tract infection: Code(s): T83.511A - Infection and inflammatory reaction due to indwelling urethral catheter, initial encounter; N39.0 - Urinary tract infection, site not specified Status: Acute Assessment and Plan: Will restart IV antibiotics (4) Essential (primary) hypertension: Code(s): I10 - Essential (primary) hypertension Status: Acute Assessment and Plan: Pending home medication reconciliation (5) Seizures: Code(s): R56.9 - Unspecified convulsions Status: Acute Assessment and Plan: Pending home medication reconciliation I restarted IV Keppra (6) Dyslipidemia: Code(s): E78.5 - Hyperlipidemia, unspecified Status: Acute Assessment and Plan: Pending home medication reconciliation (7) Aspiration pneumonia: Code(s): J69.0 - Pneumonitis due to inhalation of food and vomit Status: Acute Assessment and Plan: Swallow evaluation IV antibiotics reviewed CBC CMP chest x-ray discussed with ER physician Plan Pending hospice evaluation patient has poor prognosis Subjective Date/time seen: 07/16/22 17:20 Chief Complaint: HPI-77 years old male with past medical history of seizure intracranial bleed stroke has PEG tube presented to the hospital with cough yellow sputum and episode of hypoxia requiring 2 L oxygen patient also was short of breath patient was discharged from the hospital today where he was treated for altered mental status and abdominal pain was found to have UTI MRI of the brain showed ischemic changes and chronic intracranial hemorrhage patient was discharged with plan to start hospice but hospice was not able to visit the patient today patient currently is DNR family did not decide about hospice yet. 07/16/2022 interval history: 72-year-old male will discharge on 07/15 to be admitted under hospice care however patient with a PEG NG tube feeding was not titrated patient was brought back for further evaluate, hospice services restarted the patient on G-tube feeding and will monitor as patient can tolerate before discharging home. unfortunately patient is quite somnolent unable to provide any review of symptoms, Review of Systems Review of Systems: ROS unobtainable: Yes unobtainable due to medical condition Exam Narrative: appears chronically ill Patient is comfortable, NAD HEENT: eyes are clear and none icteric LUNGS: normal respiratory effort ABD: not distended Lower extremities: no edema SKIN: nonjaundiced Neuro: grossly intact. Objective Data Vital Signs Vital Signs: Vital Signs - 24 hr 07/15/22 23:01 07/15/22 23:05 07/15/22 23:30 Temperature 102 F H Pulse Rate 103 H 99 Respiratory Rate 28 H Blood Pressure 129/45 L Pulse Oximetry 93 95 Oxygen Delivery Room Air Nasal Cannula Oxygen Flow Rate 2 07/15/22 23:30 07/16/22 00:29 07/16/22 02:40 Temperature 99.3 F Pulse Rate 99 100 Respiratory Rate 14 30 H Blood Pressure 101/72 150/56 H Pulse Oximetry 95 99 100 Oxygen Delivery Nasal Cannula Oxygen Flow Rate 2.0 07/16/22 01:30
--- NOTE | 2022-07-16 17:52 | PC.NURSE ---
This patient, Jones Gutierrez, was transferred to [ 211] on 07/16/22 at 1750. Personal belongings sent with patient. Report given to [ CHENCHO Oconnor @ [phone]]. Appropriate documentation sent with patient.
--- NOTE | 2022-07-16 17:55 | PC.NURSE ---
This patient, Jones Gutierrez, was received from IMU 210 on 07/16/22 at 1755. Patient/family oriented to unit policies and routines. Report received by Manju PAIZ
[2022-07-16] MEDS: SCOPOLAMINE 1.5 MG PATCH TRANSDERM (22:53)
[2022-07-17 06:00] VITALS: BP 148/56; PULSE 83; RESP 21; TEMP 36.4; O2SAT 98
[2022-07-17 07:11] LABS: Basophils Percent Auto 0.4 % (0.2-1.2); Eosinophils Absolute Auto 0.2 K/mm3 (0-0.3); Eosinophils Percent Auto 1.4 % (0-4.4); Hemoglobin 10.7 g/dL (14.0-18.0); Immature Granulocyte Absolute 0.04 K/mm3 (0.00-0.031); Immature Granulocyte Percent A 0.4 % (0-0.5); Lymphocytes Absolute Auto 1.18 K/mm3 (0.9-3.2); Lymphocytes Percent Auto 10.6 % (18.3-44.2); Mean Corpuscular HGB Conc 32.4 g/dl (32-36); Mean Corpuscular Hemoglobin 31.4 pg (26-34); Mean Corpuscular Volume 96.8 fl (80-100); Mean Platelet Volume 10.8 fl (7.4-10.4); Neutrophils Absolute Auto 8.7 K/mm3 (1.3-6.7); Neutrophils Percent Auto 78.2 % (45.5-73.1); Platelet Count Result 245 k/mm3 (150-375); Red Blood Count 3.41 M/mm3 (4.6-6.20); Red Cell Distribution Width 14.3 % (11.5-14.5); White Blood Count 11.1 K/mm3 (4.5-10.0)
[2022-07-17 07:25] LABS: Alanine Aminotransferase 43 U/L (6-50); Albumin Level 3.4 g/dL (3.5-5.1); Alkaline Phosphatase 92 U/L (38-126); Anion Gap 8 mmol/L (8-16); Aspartate Amino Transferase 33 U/L (17-59); Bilirubin,Total 0.2 mg/dL (0.2-1.3); Blood Urea Nitrogen 30 mg/dL (9-20); Carbon Dioxide 29 mmol/L (22-30); Chloride 106 mmol/L (98-107); Estimated CRCL calculation 112 ml/min; Estimated Glomerular Filt Rate > 60; Glucose 140 mg/dL (65-110); Potassium 3.7 mmol/L (3.4-5.0); Sodium 143 mmol/L (137-145)
[2022-07-17] MEDS: levETIRAcetam ORAL SOL 500 MG/5 ML UDC 1500 MG FEED TUBE (09:39)
--- NOTE | 2022-07-17 11:46 | PM.DS ---
DS: Admitting Diagnosis Discharge Date 07/16/2022 Admitting Diagnosis G-tube feeding DS: Discharge Diagnosis Discharge Diagnosis (1) Spasticity: Code(s): R25.2 - Cramp and spasm Status: Acute Assessment and Plan: PT [facility] H[facility]ice evaluation 07/16/2022 interval history: 72-year-old male will discharge on 07/15 to be admitted under hospice care however patient with a PEG NG tube feeding was not titrated patient was brought back for further evaluate, hospice services restarted the patient on G-tube feeding and will monitor as patient can tolerate before discharging home. unfortunately patient is quite somnolent unable to provide any review of symptoms, (2) Silent micro-hemorrhage of brain: Code(s): I61.8 - Other nontraumatic intracerebral hemorrhage Status: Acute Assessment and Plan: Hospice evaluation poor prognosis Pending family decision regarding hospice (3) Catheter-associated urinary tract infection: Code(s): T83.511A - Infection and inflammatory reaction due to indwelling urethral catheter, initial encounter; N39.0 - Urinary tract infection, site not specified Status: Acute Assessment and Plan: Will restart IV antibiotics (4) Essential (primary) hypertension: Code(s): I10 - Essential (primary) hypertension Status: Acute Assessment and Plan: Pending home medication reconciliation (5) Seizures: Code(s): R56.9 - Unspecified convulsions Status: Acute Assessment and Plan: Pending home medication reconciliation I restarted IV Keppra (6) Dyslipidemia: Code(s): E78.5 - Hyperlipidemia, unspecified Status: Acute Assessment and Plan: Pending home medication reconciliation (7) Aspiration pneumonia: Code(s): J69.0 - Pneumonitis due to inhalation of food and vomit Status: Acute Assessment and Plan: Swallow evaluation IV antibiotics reviewed CBC CMP chest x-ray discussed with ER physician Plan Pending hospice evaluation patient has poor prognosis DS: Summary Hospital Course Reason for hospitalization: Chief Complaint: 77 years old male with past medical history of seizure intracranial bleed stroke has PEG tube presented to the hospital with cough yellow sputum and episode of hypoxia requiring 2 L oxygen patient also was short of breath patient was discharged from the hospital today where he was treated for altered mental status and abdominal pain was found to have UTI MRI of the brain showed ischemic changes and chronic intracranial hemorrhage patient was discharged with plan to start hospice but hospice was not able to visit the patient today patient currently is DNR family did not decide about hospice yet Hospital Course: 72-year-old male will discharge on 07/15 to be admitted under hospice care however patient with a PEG NG tube feeding was not titrated patient was brought back for further evaluate, hospice services restarted the patient on G-tube feeding and will monitor as patient can tolerate before discharging home.? unfortunately patient is quite somnolent unable to provide any review of symptoms, patient placed on G-tube clinically stable will discharge the patient today home there he will be admitted under hospice care. Time Spent with Patient Time attestation: Total time spent providing and/or coordinating discharge services: Exam Narrative: appears chronically ill Patient is comfortable, NAD HEENT: eyes are clear and none icteric LUNGS: normal respiratory effort ABD: not distended Lower extremities: no edema SKIN: nonjaundiced Neuro: grossly intact. DS: Data Data Completed and Pending Labs on day of discharge: Labs from last 24 hours 07/17/22 07/17/22 06:37 06:37 WBC 11.1 H RBC 3.41 L Hgb 10.7 L Hct 33.0 L MCV 96.8 MCH 31.4 MCHC 32.4 RDW 14.3 Plt Count 245 MPV 10.8 H Immature Gran % (Auto) 0.4 Neut % (Auto) 78.2 H Lymph % (A
[2022-07-17 14:00] VITALS: BP 147/58; PULSE 81; RESP 20; TEMP 36.8; O2SAT 96
== END 2022-07-17 14:30 | disposition hospice, home (50) ==
LOC: ANHED 22:56 → ANHIMU 07-16 02:47 → ANH3MEDSUR 07-17 11:46 → ANHIMU 07-18 10:46
PROVIDERS: Admitting Provider Internal Medicine; Emergency Provider Emergency Medicine; PCP Family Medicine; Visit Provider Family Medicine
DX: R25.2 Cramp and spasm (principal); I61.8 Other nontraumatic intracerebral hemorrhage; T83.511A Infection and inflammatory reaction due to indwelling urethral catheter, initial encounter; N39.0 Urinary tract infection, site not specified; I10 Essential (primary) hypertension; R56.9 Unspecified convulsions; E78.5 Hyperlipidemia, unspecified; J69.0 Pneumonitis due to inhalation of food and vomit; R09.02 Hypoxemia; Z93.1 Gastrostomy status; R13.10 Dysphagia, unspecified; F32.A Depression, unspecified; K21.9 Gastro-esophageal reflux disease without esophagitis; R73.03 Prediabetes; R78.81 Bacteremia; B95.7 Other staphylococcus as the cause of diseases classified elsewhere; Z66 Do not resuscitate; Z79.01 Long term (current) use of anticoagulants; Z86.16 Personal history of COVID-19; Z86.73 Personal history of transient ischemic attack (TIA), and cerebral infarction without residual deficits; Z79.899 Other long term (current) drug therapy; Z83.3 Family history of diabetes mellitus; Z82.49 Family history of ischemic heart disease and other diseases of the circulatory system; Y82.8 Other medical devices associated with adverse incidents
CPT/HCPCS: 36415; 71045; 80053; 81001; 83605; 85025; 85610; 85730; 86140; 87040; 87077; 87086; 87181; 87186; 96365; 96367; 96376; 99285; A9270; G0378; J1953; J2543; J7030